=== PATIENT | female | born 1960 | race Caucasian/White ===

== ENCOUNTER 2018-01-12 15:32 | Observation (INO) | payer MEDICARE, MEDICAID ==
[~2018-01-12] VITALS: Ht 175.3 cm; Wt 72.6 kg
[2018-01-12] MEDS ORDERED: fentaNYL INJECTION 100 MCG/2 ML AMP ONE ×2 (15:50→19:46)
--- NOTE | 2018-01-12 15:57 | ED Trauma-Multisystem ---
General Stated Complaint: HEAD INJ,CP Source of Information: Patient, EMS Exam Limitations: No Limitations History of Present Illness Date Seen by Provider: Jan 12, 2018 Time Seen by Provider: 15:41 Initial Comments Here with report of head injury with laceration to the posterior scalp, neck pain, upper back pain and chest pain after being struck by a tree limbs while sitting in a rocking chair. Apparently the lab was approximately 8-10 inches around. The limb Dr. onto the ground and landed on her chest. She is from [facility] but was transported here due to trauma diversion. Denies loss of consciousness. Does complain of nausea but no vomiting. She did receive pain and nausea meds in route by EMS. Reports that she does take insulin, Xanax , Flexeril and a blood pressure medicine. Occurred: Just Prior to Arrival (approximately 1-1/2 hours ago) Severity: Moderate Pain/Injury Location: Back, Chest, Head, Neck Method of Injury: Direct Blow Modifying Factors: No Movement, Rest Associated Symptoms (Fall): No Abdominal Pain, Chest Pain, No Confusion, Muscle Spasms, Nausea/Vomiting, Neck Pain, No Shortness of Air Allergies and Home Medications Allergies Coded Allergies: codeine (Verified Allergy, Unknown, 01/12/18) Patient Home Medication List Home Medication List Reviewed: Yes Constitutional: see HPI, No chills, No fever Eyes: No Symptoms Reported Ears: No Symptoms Reported Nose: No Symptoms Reported Mouth: No Symptoms Reported Throat: No Symptoms to Report Respiratory: No cough, No short of breath Cardiovascular: Chest Pain (anterior upper chest wall where limb struck her), Denies Palpitations Gastrointestinal: No abdominal pain, nausea, No vomiting : No Musculoskeletal: back pain, muscle pain, No muscle weakness, neck pain Skin: lumps (posterior scalp), other (scalp laceration otherwise no abrasions) Psychiatric/Neurological: Denies Cognitive Dysfunction, Headache, Denies Weakness All Other Systems Reviewed Negative Unless Noted: Yes Past Gpuidgf-Ejldxk-Jphqci Hx Patient Social History Recreational Drug Use: No Smoking Status: Current Everyday Smoker Surgeries History of Surgeries: Yes Surgeries: Gallbladder, Hysterectomy, Orthopedic Respiratory History of Respiratory Disorde: No Cardiovascular History of Cardiac Disorders: Yes Cardiac Disorders: Hypertension Neurological History of Neurological Disord: No Gastrointestinal History of Gastrointestinal Di: No Musculoskeletal History of Musculoskeletal Dis: Yes Musculoskeletal Disorders: Chronic Back Pain Endocrine History of Endocrine Disorders: Yes Endocrine Disorders: Diabetes, Insulin dep Cancer History of Cancer: No Psychosocial History of Psychiatric Problem: Yes Behavioral Health Disorders: Anxiety Reviewed Nursing Assessment Reviewed/Agree w Nursing PMH: Yes Family Medical History Significant Family History: No Pertinent Family Hx Physical Exam Vital Signs Vital Signs - First Documented 01/12/18 15:35 Temp 97.1 Pulse 96 Resp 18 B/P (MAP) 127/100 (109) Pulse Ox 97 O2 Delivery Nasal Cannula O2 Flow Rate 2.00 General Appearance: No Apparent Distress, WD/WN Head: Lacerations (posterior scalp approximately 3 cm near the midline) Eyes: Bilateral Eye Normal Inspection, Bilateral Eye PERRL, Bilateral Eye EOMI Ears, Nose, Throat: Hearing Grossly Normal, No Evidence of ENT Injury, Other ( upper and lower dentures) Neck: Tender Lateral, Tender Midline, Other (c-collar remains in place) Cardiovascular: Regular Rate, Rhythm, No Murmur Respiratory: Lungs Clear, Normal Breath Sounds Gastrointestinal: Non Tender, Soft Back: Muscle Spasm (bilateral lateral spinous muscles throughout the back), Vertebral Tenderness (thoracic spine midline upper) Extremity: Normal Range of Motion, Non Tender Neurologic/Psychiatric: Alert, Oriented x3, No Motor/Sensory Deficits Skin: Normal Color, Warm/Dry, Other (scalp laceration as noted above. No other abrasions or wounds noted to the chest or back) Bill Coma Score Best Eye Response ([place]): (4) Open Spontaneously Best Verbal Response (Bill): (5) Oriented Best Motor Response ([place]): (6) Obeys Commands Laceration Repair : Wound Location: Scalp Other Wound Location Posterior left-sided Wound Length (cm): 3 Wound's Depth, Shape: irregular, contused tissue Wound Explored: contaminated Irrigated w/ Saline (ccs): 250 Betadine Prep?: No (chlorhexidine) Anesthesia: Lidocaine w/ Epi Volume Anesthetic (ccs): 5 Wound Debrided: minimal Staple Repair: Stapler 35W Number of Sutures: 8 Layer Closure?: 1 Number Deep Layer Sutures: 0 Progress Clinical decision saline and soap. Anesthetized. Closed with duncan. Currently with antibiotic ointment. Tolerated procedure well with no complication. Progress/Results/Core Measures Results/Orders Lab Results Laboratory Tests Test 01/12/18 15:50 Range/Units White Blood Count 11.2 H 4.3-11.0 10^3/uL Red Blood Count 4.24 L 4.35-5.85 10^6/uL Hemoglobin 14.1 11.5-16.0 G/DL Hematocrit 40 35-52 % Mean Corpuscular Volume 95 80-99 FL Mean Corpuscular Hemoglobin 33 25-34 PG Mean Corpuscular Hemoglobin Concent 35 32-36 G/DL Red Cell Distribution Width 12.5 10.0-14.5 % Platelet Count 183 130-400 10^3/uL Mean Platelet Volume 9.7 7.4-10.4 FL Sodium Level 139 135-145 MMOL/L Potassium Level 4.0 3.6-5.0 MMOL/L Chloride Level 106 98-107 MMOL/L Carbon Dioxide Level 24 21-32 MMOL/L Anion Gap 9 5-14 MMOL/L Blood Urea Nitrogen 13 7-18 MG/DL Creatinine 0.67 0.60-1.30 MG/DL Estimat Glomerular Filtration Rate > 60 BUN/Creatinine Ratio 19 Glucose Level 118 H 70-105 MG/DL Calcium Level 9.3 8.5-10.1 MG/DL Total Bilirubin 0.3 0.1-1.0 MG/DL Direct Bilirubin 0.1 0.0-0.3 MG/DL Indirect Bilirubin 0.2 MG/DL Aspartate Amino Transf (AST/SGOT) 24 5-34 U/L Alanine Aminotransferase (ALT/SGPT) 18 0-55 U/L Alkaline Phosphatase 79 40-136 U/L Total Protein 6.8 6.4-8.2 GM/DL Albumin 4.3 3.2-4.5 GM/DL Serum Test, Qualitative NEGATIVE NEGATIVE Serum Alcohol < 10 <10 MG/DL My Orders Orders - CORBIN JOSEPH MD Cbc No Diff (01/12/18 15:48) Basic Metabolic Panel (01/12/18 15:48) Liver Panel (01/12/18 15:48) Alcohol (01/12/18 15:48) Hcg,Qualitative Serum (01/12/18 15:48) Chest 1 View, Ap/Pa Only (01/12/18 15:48) End Tidal Co2 (01/12/18 15:48) Monitor-Rhythm Ecg Trace Only (01/12/18 15:48) Ct Head/Cervical Spine Wo (01/12/18 15:48) Ct Chest/Abdomen/Pelvis W (01/12/18 15:48) Fentanyl Injection (Sublimaze Injection (01/12/18 15:50) Iohexol Injection (Omnipaque 350 Mg/Ml 1 (01/12/18 16:15) Ns (Ivpb) (Sodium Chloride 0.9% Ivpb Bag (01/12/18 16:15) D5 Ns 1000 Ml Iv Solution (Dextrose 5%/0 (01/12/18 16:35) Hydrocodone/Apap 10/325 Tablet (Lortab 1 (01/12/18 17:02) Dipht,Pertuss(Acell),Tet Adult (Boostrix (01/12/18 17:14) Lidocaine/Epi 1% 1:100,000 (Xylocaine /E (01/12/18 17:14) Lidocaine/Epi 2% 1:100,000 (Xylocaine/Ep (01/12/18 17:42) Medications Given in ED Current Medications Medications Dose Ordered Sig/Randall Route Start Time Stop Time Status Last Admin Dose Admin Dextrose/Sodium Chloride 1,000 ml @ ud STK-MED ONCE IV 01/12/18 16:35 01/12/18 16:39 DC 01/12/18 16:40 150 MLS/HR Fentanyl Citrate 100 mcg STK-MED ONCE .ROUTE 01/12/18 15:50 01/12/18 15:53 DC 01/12/18 16:00 100 MCG Iohexol 100 ml ONCE ONCE IV 01/12/18 16:15 01/12/18 16:16 DC 01/12/18 16:15 100 ML Sodium Chloride 100 ml ONCE ONCE IV 01/12/18 16:15 01/12/18 16:16 DC 01/12/18 16:16 100 ML Vital Signs/I&O Vital Sign - Last 12Hours 01/12/18 15:35 Temp 97.1 Pulse 96 Resp 18 B/P (MAP) 127/100 (109) Pulse Ox 97 O2 Delivery Nasal Cannula O2 Flow Rate 2.00 Progress Note : Progress Note Seen and evaluated. IV by EMS. Labs, CT head and neck ordered without contrast. CT chest abdomen and pelvis with contrast, scan due to being struck by a large limb. Fentanyl 75 g IV for persistent pain. We will check, labs. Monitor patient. Patient placed on O2 at 2 L via nasal cannula. 1645: CT of the head and neck do not show any fractures or intracranial injury. C-collar removed. Patient does have some lateral pain and pain in the upper chest. 1646 : I did discuss the CT findings with the radiologist regarding the chest and she has central manubrial fracture midline that is nondisplaced but otherwise no other other fractures or bleeding within the chest. 1710: Findings have been discussed with the patient. She is asking for some improvement or drink. We will allow for this. Patient is having fairly significant pain with sitting up. Hydrocodone 10/325 one tab by mouth given. She normally takes hydrocodone 7.5/325 3-4 day for her chronic pain. Monitor patient. 1715: I did discuss the case with Dr. Kilpatrick for admission due to the fact that the patient is having significant pain control issues. There is also a concerns about shallow breathing due to pain and the patient has eczema. She has been a smoker for 50 years and she did not know that she had emphysema or emphysematous changes but she understands that this is likely an related to her smoking history. I discussed the case with Dr. David at 1732 and she accepts patient in consult. We will continue his insulin sliding scale. Wound closed with duncan. Admit, observation status. Patient family agree with plan. Diagnostic Imaging Diagonstic Imaging: CT Plain Films/CT/US/NM/MRI: c-spine, head Comments NAME: ROSA HORNER [facility] REC#: [id number] PT STATUS: REG ER : 1960 PHYSICIAN: CORBIN JOSEPH MD ADMIT DATE: 01/12/18/ER Signed Date of Exam: 01/12/18 CT HEAD/CERVICAL SPINE WO INDICATION: Tree limb fell on patient, with head and neck pain. CT head findings: Noncontrast brain CT is performed. There are no extra-axial fluid collections. No intracranial hemorrhage. No intracranial mass or mass effect. No midline shift. The ventricles are normal in size and position. There are no focal parenchymal abnormalities in the brain. Calvarial windows are unremarkable. CT cervical spine findings: Axial slices are obtained with sagittal and coronal reconstructions without contrast. There is no evidence of cervical spine fracture. There is no subluxation or malalignment. There is disc space narrowing at C3-C4, C4-C5, and C5-C6 as well as C6-C7, with osteophyte formation. There is some right-sided neuroforaminal narrowing at C3-C4 due to osteophyte formation. There is left-sided neuroforaminal narrowing at C4-C5 due to osteophyte formation. There is bilateral neuroforaminal narrowing at C5-C6, right greater than left. There is bilateral neuroforaminal narrowing at C6-C7. IMPRESSION: CT head demonstrates no acute intracranial abnormality or calvarial fracture. CT cervical spine demonstrates multilevel degenerative changes as above with no acute fracture or subluxation. Dictated by: Dictated on workstation # [id number] Dict: 01/12/18 1624 Trans: 01/12/181700 Interpreted by: HELLEN MCKENZIE MD Electronically signed by: HELLEN MCKENZIE MD 01/12/181700 Reviewed: Reviewed by Me Diagonstic Imaging: Xray Plain Films/CT/US/NM/MRI: chest Comments NAME: SIRICATINAY [facility] REC#: [id number] PT STATUS: REG ER : 1960 PHYSICIAN: CORBIN JOSEPH MD ADMIT DATE: 01/12/18/ER Signed Date of Exam: 01/12/18 CHEST 1 VIEW, AP/PA ONLY INDICATION: Chest pain, tree limb landed on patient. TECHNIQUE: A PA chest was obtained at 4:30 PM. FINDINGS: The heart is mildly enlarged. There is central vascular prominence with chronic appearing increased interstitial markings. There is no pneumothorax or pleural fluid. There is no overt bony abnormality in the chest. IMPRESSION: Central vascular prominence with chronic appearing increased interstitial markings. No overt consolidation, pneumothorax, or pleural fluid. Dictated by: Dictated on workstation # [id number] Dict: 01/12/18 1639 Trans: 01/12/181700 Interpreted by: HELLEN MCKENZIE MD Electronically signed by: HELLEN MCKENZIE MD 01/12/181700 Diagonstic Imaging: CT Plain Films/CT/US/NM/MRI: chest, abdomen, pelvis Comments VIA [facility]. [place], [place] NAME: ROSA HORNER [facility] REC#: [id number] PT STATUS: REG ER : 1960 PHYSICIAN: CORBIN JOSEPH MD ADMIT DATE: 01/12/18/ER Draft Date of Exam:01/12/18 CT CHEST/ABDOMEN/PELVIS W PROCEDURE: CT chest, abdomen, and pelvis with contrast. TECHNIQUE: Multiple contiguous axial images were obtained through the chest, abdomen, and pelvis after the administration of intravenous contrast. INDICATION: Trauma to chest. FINDINGS: There are no prior studies available for comparison. On the parasagittal images, there is a small essentially nondisplaced fracture along the ventral cortex of the body of the manubrium (image 27 of 58). There may be a small retromanubrial hematoma as well. The sternum itself is intact. There is no other acute bony abnormality appreciated. The thoracic and lumbar vertebrae are intact and there is no sign of an injury to the bony pelvis. The images through the thorax do show that there are emphysematous changes involving both lungs. There is also atelectasis/infiltrate in each lower lobe. There is no sign of pneumothorax. The heart size is within normal limits. Coronary artery calcifications are noted. The aorta is not abnormally dilated. There is no sign of dissection. There is no defect within the pulmonary arteries to indicate a pulmonary embolus either. There is no mediastinal or hilar adenopathy. The thyroid gland, where visualized, is unremarkable. The sections through the abdomen and pelvis fail to show any sign of an acute abnormality. The liver does not appear to be enlarged. The gallbladder is surgically absent. The spleen, pancreas, adrenals, kidneys, aorta, and inferior vena cava are unremarkable for an acute abnormality. There is no pelvic mass or free fluid collection evident. There are numerous diverticula involving the sigmoid and descending colon, but there is no sign of acute diverticulitis. The appendix is not well visualized, but there are no indirect signs of acute appendicitis. The uterus is surgically absent. The urinary bladder is grossly unremarkable. IMPRESSION: 1. There is an essentially nondisplaced fracture of the ventral cortex of the manubrium. No other acute bony abnormality is noted. 2. There are emphysematous changes involving both lungs and there is atelectasis/infiltrate in each lung base. 3. There is no acute abnormality of the abdomen or pelvis. 4. The gallbladder and the uterus are surgically absent. 5. These results were discussed with Dr. Corbin Joseph in the ER. Dictated on workstation # [id number] Dict: 01/12/18 1641 Trans: 01/12/18 1708 [id number] Interpreted by: HALIMA STORM MD Electronically signed by: Departure Communication (Admissions) Time/Spoke to Admitting Phy: 17:15 Time/Spoke to Consulting Phy: 17:32 Impression Impression: Primary Impression: Scalp laceration Qualified Codes: S01.01XA - Laceration without foreign body of scalp, initial encounter Additional Impressions: Head injury, acute, without loss of consciousness Qualified Codes: S09.90XA - Unspecified injury of head, initial encounter Fracture of manubrium Qualified Codes: S22.21XA - Fracture of manubrium, initial encounter for closed fracture Intractable pain Disposition: ADMITTED INPATIENT Condition: Stable Admissions Decision to Admit Reason: Admit from ER (Trauma) Decision to Admit/Date: Jan 12, 2018 Time/Decision to Admit Time: 17:15 CORBIN JOSEPH MD Jan 12, 2018 15:57
[2018-01-12] MEDS ORDERED: IOHEXOL 350 MG/ML 100 ML (OMNIPAQUE 350) VIAL IV ONE (16:15)
[2018-01-12] MEDS ORDERED: NS 100 ML (IVPB) BAG IV ONE (16:15)
[2018-01-12 16:22] LABS: HEMOGLOBIN 14.1 G/DL (11.5-16.0); MEAN PLATELET VOLUME 9.7 FL (7.4-10.4); RED BLOOD COUNT 4.24 10^6/uL (4.35-5.85); RED CELL DISTRIBUTION WIDTH 12.5 % (10.0-14.5); WHITE BLOOD COUNT 11.2 10^3/uL (4.3-11.0)
--- NOTE | 2018-01-12 16:33 | Diagnostic Imaging Report ---
INDICATION: Tree limb fell on patient, with head and neck pain. CT head findings: Noncontrast brain CT is performed. There are no extra-axial fluid collections. No intracranial hemorrhage. No intracranial mass or mass effect. No midline shift. The ventricles are normal in size and position. There are no focal parenchymal abnormalities in the brain. Calvarial windows are unremarkable. CT cervical spine findings: Axial slices are obtained with sagittal and coronal reconstructions without contrast. There is no evidence of cervical spine fracture. There is no subluxation or malalignment. There is disc space narrowing at C3-C4, C4-C5, and C5-C6 as well as C6-C7, with osteophyte formation. There is some right-sided neuroforaminal narrowing at C3-C4 due to osteophyte formation. There is left-sided neuroforaminal narrowing at C4-C5 due to osteophyte formation. There is bilateral neuroforaminal narrowing at C5-C6, right greater than left. There is bilateral neuroforaminal narrowing at C6-C7. IMPRESSION: CT head demonstrates no acute intracranial abnormality or calvarial fracture. CT cervical spine demonstrates multilevel degenerative changes as above with no acute fracture or subluxation. Dictated by: Dictated on workstation # [id number]
[2018-01-12] MEDS ORDERED: D5 NS 1000 ML IV SOLUTION 1,000 ML IV ONE (16:35)
--- NOTE | 2018-01-12 16:43 | Diagnostic Imaging Report ---
INDICATION: Chest pain, tree limb landed on patient. TECHNIQUE: A PA chest was obtained at 4:30 PM. FINDINGS: The heart is mildly enlarged. There is central vascular prominence with chronic appearing increased interstitial markings. There is no pneumothorax or pleural fluid. There is no overt bony abnormality in the chest. IMPRESSION: Central vascular prominence with chronic appearing increased interstitial markings. No overt consolidation, pneumothorax, or pleural fluid. Dictated by: Dictated on workstation # [id number]
[2018-01-12 16:51] LABS: ALANINE AMINOTRANSFERASE 18 U/L (0-55); ALBUMIN 4.3 GM/DL (3.2-4.5); ALKALINE PHOSPHATASE 79 U/L (40-136); BILIRUBIN,DIRECT 0.1 MG/DL (0.0-0.3); BILIRUBIN,INDIRECT 0.2 MG/DL; BILIRUBIN,TOTAL 0.3 MG/DL (0.1-1.0); BUN/CREATININE RATIO 19; CALCIUM 9.3 MG/DL (8.5-10.1); CARBON DIOXIDE 24 MMOL/L (21-32); CHLORIDE 106 MMOL/L (98-107); CREATININE SERUM 0.67 MG/DL (0.60-1.30); GFR ESTIMATED > 60; GLUCOSE 118 MG/DL (70-105); SODIUM 139 MMOL/L (135-145); TOTAL PROTEIN 6.8 GM/DL (6.4-8.2)
[2018-01-12] MEDS ORDERED: HYDROcodone/APAP 10 MG/325 MG (LORTAB) TAB PO STA (17:02)
--- NOTE | 2018-01-12 17:08 | Diagnostic Imaging Report ---
PROCEDURE: CT chest, abdomen, and pelvis with contrast. TECHNIQUE: Multiple contiguous axial images were obtained through the chest, abdomen, and pelvis after the administration of intravenous contrast. INDICATION: Trauma to chest. FINDINGS: There are no prior studies available for comparison. On the parasagittal images, there is a small essentially nondisplaced fracture along the ventral cortex of the body of the manubrium (image 27 of 58). There may be a small retromanubrial hematoma as well. The sternum itself is intact. There is no other acute bony abnormality appreciated. The thoracic and lumbar vertebrae are intact and there is no sign of an injury to the bony pelvis. The images through the thorax do show that there are emphysematous changes involving both lungs. There is also atelectasis/infiltrate in each lower lobe. There is no sign of pneumothorax. The heart size is within normal limits. Coronary artery calcifications are noted. The aorta is not abnormally dilated. There is no sign of dissection. There is no defect within the pulmonary arteries to indicate a pulmonary embolus either. There is no mediastinal or hilar adenopathy. The thyroid gland, where visualized, is unremarkable. The sections through the abdomen and pelvis fail to show any sign of an acute abnormality. The liver does not appear to be enlarged. The gallbladder is surgically absent. The spleen, pancreas, adrenals, kidneys, aorta, and inferior vena cava are unremarkable for an acute abnormality. There is no pelvic mass or free fluid collection evident. There are numerous diverticula involving the sigmoid and descending colon, but there is no sign of acute diverticulitis. The appendix is not well visualized, but there are no indirect signs of acute appendicitis. The uterus is surgically absent. The urinary bladder is grossly unremarkable. IMPRESSION: 1. There is an essentially nondisplaced fracture of the ventral cortex of the manubrium. No other acute bony abnormality is noted. 2. There are emphysematous changes involving both lungs and there is atelectasis/infiltrate in each lung base. 3. There is no acute abnormality of the abdomen or pelvis. 4. The gallbladder and the uterus are surgically absent. 5. These results were discussed with Dr. Corbin Patel in the ER. Dictated by: Dictated on workstation # [id number]
[2018-01-12] MEDS ORDERED: TETANUS,DIPTH,PERTUSS P/F (BOOSTRIX) 0.5 ML VIAL IM STA (17:14)
[2018-01-12] MEDS ORDERED: LIDOCAINE/EPI 1%-1:100,000 (XYLOCAINE) 20ML INJ STA (17:14)
[2018-01-12] MEDS ORDERED: LIDOCAINE/EPI 2% 1:100,00 (XYLOCAINE) 20 ML VIAL ONE (17:42)
--- OUTSIDE RECORDS SUMMARY | 2018-01-12 18:06 | XMS REPORT ---
Author Author Anastacia Lee Organization [facility] Address [address] [place], [place] [id number] Care Team Providers Care Medical Record Specialist Name Role Phone Anastacia Lee PCP Unavailable Sri Guevara PreferredProvider Allergies and Adverse Reactions Name Reaction Notes Tape op site covering Molds codeine sulfate lisinopril cough ranitidine HCl IBS symptoms Plan of Treatment Planned Activity Comments Planned Date Planned Time Plan/Goal Hemoglobin A1C 07/09/2015 12:00 AM Hemoglobin A1C 04/06/2016 12:00 AM Complete blood count (CBC) with differential count 12/12/2016 12:00 AM Comprehensive metabolic panel 12/12/2016 12:00 AM Lipid Blood Profile 12/12/2016 12:00 AM Hemoglobin A1c measurement 12/12/2016 12:00 AM Basic metabolic panel 02/03/2017 12:00 AM Complete blood count (CBC) with differential count 02/03/2017 12:00 AM Hemoglobin A1c measurement 02/03/2017 12:00 AM MICROALBUMIN UR RANDOM 02/03/2017 12:00 AM Medications Active Name Start Date Estimated Completion Date SIG Comments Lortab 7.5-500 mg oral tablet take 1 tablet by oral route every 6 hours as needed for pain Lantus Solostar 100 unit/mL (3 mL) subcutaneous insulin pen inject by subcutaneous route as per insulin protocol BD Ultra-Fine Izzy Pen [place] 32 gauge x 5/32" miscellaneous needle 2013 USE DIRECTED cyclobenzaprine oral gemfibrozil 600 mg oral tablet 08/22/2014 take 1 tablet (600 mg) by oral route 2 times per day 30 minutes before morning and evening meal Lantus Solostar 100 unit/mL (3 mL) subcutaneous insulin pen 08/22/2014 injection 15 units by subcutaneous route BID Novolog 100 unit/mL subcutaneous solution 08/22/2014 injection by subcutaneous route with sliding scale TID with meals gemfibrozil 600 mg oral tablet 08/22/2014 TAKE 1 TABLET (600 MG) BY ORAL ROUTE 2 TIMES PER DAY 30 MINUTES BEFORE MORNING AND EVENING MEAL BD Ultra-Fine Izzy Pen [place] 32 gauge x 5/32" miscellaneous needle 2013 USE DIRECTED insulin syringe-needle U-100 0.3 mL 30 miscellaneous syringe 09/20/2014 USE DIRECTED insulin syringe-needle U-100 0.3 mL 30 miscellaneous syringe 10/15/2014 USE DIRECTED BD Ultra-Fine Izzy Pen [place] 32 gauge x 5/32" miscellaneous needle 10/30/2014 USE DIRECTED insulin syringe-needle U-100 0.3 mL 30 miscellaneous syringe 11/13/2014 USE DIRECTED insulin syringe-needle U-100 0.3 mL 30 miscellaneous syringe 01/03/2015 USE DIRECTED Lantus Solostar 100 unit/mL (3 mL) subcutaneous insulin pen 01/19/2015 INJECT 15 UNITS BID, MAY INCREASE BY 2 UNITS DAILY DIRECTED Zanaflex 4 mg oral capsule take 1 capsule by oral route 3 times a day as needed doxazosin 4 mg oral tablet 03/01/2015 TAKE 1 TABLET (4 MG) BY ORAL ROUTE ONCE DAILY FOR 30 DAYS Centrum Silver 0.4-300-250 mg-mcg-mcg oral tablet take 1 tablet by oral route daily Lantus Solostar 100 unit/mL (3 mL) subcutaneous insulin pen 03/22/2015 INJECT 10 UNITS DAILY, MAY INCREASE BY 2 UNITS DAILY DIRECTED doxazosin 4 mg oral tablet 03/29/2015 TAKE 1 TABLET (4 MG) BY ORAL ROUTE ONCE DAILY FOR 30 DAYS insulin syringe-needle U-100 0.3 mL 30 miscellaneous syringe 04/25/2015 USE DIRECTED insulin syringe-needle U-100 0.3 mL 30 miscellaneous syringe 04/26/2015 USE DIRECTED doxazosin 4 mg oral tablet 05/14/2015 TAKE 1 TABLET (4 MG) BY ORAL ROUTE ONCE DAILY FOR 30 DAYS Lantus Solostar 100 unit/mL (3 mL) subcutaneous insulin pen 05/28/2015 INJECT 10 UNITS DAILY, MAY INCREASE BY 2 UNITS DAILY DIRECTED Lantus Solostar 100 unit/mL (3 mL) subcutaneous insulin pen 06/25/2015 INJECT 10 UNITS DAILY, MAY INCREASE BY 2 UNITS DAILY DIRECTED BD Ultra-Fine Izzy Pen [place] 32 gauge x 5/32" miscellaneous needle 2014 USE DIRECTED Lantus Solostar 100 unit/mL (3 mL) subcutaneous insulin pen 07/26/2015 INJECT 10 UNITS DAILY, MAY INCREASE BY 2 UNITS DAILY DIRECTED insulin syringe-needle U-100 0.3 mL 30 miscellaneous syringe 07/26/2015 USE DIRECTED insulin syringe-needle U-100 0.3 mL 30 miscellaneous syringe 08/23/2015 USE DIRECTED Novolog 100 unit/mL subcutaneous solution 10/11/2015 USE TWICE DAILY PER SLIDING SCALE(UP TO 8 UNITS PER USE) Novolog 100 unit/mL subcutaneous solution 10/11/2015 USE TWICE DAILY PER SLIDING SCALE(UP TO 8 UNITS PER USE) ibuprofen 400 mg oral tablet 10/30/2015 TAKE 1 TABLET (400 MG) BY ORAL ROUTE EVERY 6 HOURS NEEDED FOR PAIN FOR 30 DAYS BD Ultra-Fine Izzy Pen [place] 32 gauge x 32" miscellaneous needle 2015 USE DIRECTED magnesium 250 mg oral tablet take 2 tablets by oral route daily biotin 5 mg oral capsule take 1 capsule by oral route daily insulin syringe-needle U-100 0.3 mL 30 miscellaneous syringe 02/11/2016 USE DIRECTED Vitamin D3 1,000 unit oral tablet take 1 tablet by oral route every other day vitamin B complex oral capsule take 1 capsule by oral route every other day Novolog 100 unit/mL subcutaneous solution 03/25/2016 USE TWICE DAILY PER SLIDING SCALE(UP TO 8 UNITS PER USE) ibuprofen 400 mg oral tablet 07/22/2016 TAKE 1 TABLET (400 MG) BY ORAL ROUTE EVERY 6 HOURS NEEDED FOR PAIN FOR 30 DAYS insulin syringe-needle U-100 0.3 mL 30 miscellaneous syringe 09/10/2016 USE DIRECTED ProAir HFA 90 mcg/actuation inhalation HFA aerosol inhaler 10/07/2016 inhale 1 - 2 puffs (90 - 180 mcg) by inhalation route every 6 hours as needed pantoprazole 40 mg oral tablet,delayed release (DR/EC) 10/21/2016 TAKE 1 TABLET BY MOUTH EVERY DAY ibuprofen 400 mg oral tablet 10/21/2016 TAKE 1 TABLET (400 MG) BY ORAL ROUTE EVERY 6 HOURS NEEDED FOR PAIN FOR 30 DAYS OneTouch Ultra Test miscellaneous strip 12/11/2016 12/06/2017 Test 5 times daily. DX: E10.65 Omnipod 1 Insulin Management System 12/12/2016 03/21/2017 Daily use VGO 20 miscellaneous device 12/12/2016 04/11/2017 use as directed for 30 days Lantus Solostar 100 unit/mL (3 mL) subcutaneous insulin pen 12/19/2016 INJECT 10 UNITS IN THE EVENING AND 28 UNITS IN THE MORNING BD Ultra-Fine Izzy Pen [place] 32 gauge x 5/32" miscellaneous needle 2016 USE DIRECTED Novolog 100 unit/mL subcutaneous solution 02/05/2017 08/04/2017 inject up to 8 units sub-q TID loratadine 10 mg oral tablet 03/02/2017 take 1 tablet (10 mg) by oral route once daily Name Start Date Expiration Date SIG Comments Skelaxin 800 mg oral tablet 09/09/2013 12/08/2013 take 1 tablet (800 mg) by oral route 3 times per day as needed for 30 days biotin 10 mg oral tablet 09/12/2013 12/11/2013 take 1 tablet by oral route daily for 30 days doxazosin 4 mg oral tablet 02/27/2014 02/22/2015 take 1 tablet (4 mg) by oral route once daily for 30 days ibuprofen 400 mg oral tablet 02/27/2014 08/26/2014 take 1 tablet (400 mg) by oral route every 6 hours as needed for pain for 30 days Novolog 100 unit/mL subcutaneous solution 06/12/2014 07/12/2014 BID sliding scale: >120-180 take 2 units, 180-240 take 4 units, 240-300 take 6 units, 300- 350 take 8 units. If >350 take 8 units and recheck Soma 250 mg oral tablet 12/26/2014 01/02/2015 take 1 tablet by oral route once a day (at bedtime) for 7 days Ketone Urine Test miscellaneous strip 03/07/2015 05/06/2015 use as directed for 30 days Blood Glucose Monitoring miscellaneous kit 03/07/2015 04/06/2015 use as directed for 30 days Macrobid 100 mg oral capsule 09/13/2015 09/18/2015 take 1 capsule (100 mg) by oral route 2 times per day with food for 5 days doxazosin 4 mg oral tablet 01/01/2016 12/26/2016 TAKE 1 TABLET (4 MG) BY ORAL ROUTE ONCE DAILY FOR 30 DAYS for 90 days Acid Control (ranitidine) 150 mg oral tablet 01/03/2016 02/02/2016 take 1 tablet (150 mg) by oral route once daily at bedtime for 30 days amoxicillin 250 mg oral capsule 06/25/2016 07/05/2016 take 1 capsule (250 mg) by oral route every 8 hours for 10 days Lantus Solostar 100 unit/mL (3 mL) subcutaneous insulin pen 07/04/20162016 INJECT 10 UNITS in the evening and 28 units in the morning Augmentin 875-125 mg oral tablet 10/07/2016 10/14/2016 take 1 tablet by oral route every 12 hours for 7 days alprazolam 0.5 mg oral tablet 12/29/2016 01/28/2017 take 1 tablet by oral route 2 times a day as needed for 30 days Discontinued Name Start Date Discontinued Date SIG Comments Soma 350 mg oral tablet 07/15/2013 1 or 2 a day Zantac 150 mg oral tablet 08/10/2013 take 1 tablet (150 mg) by oral route 2 times per day Claritin 10 mg oral tablet 07/15/2013 take 1 tablet (10 mg) by oral route once daily PRN metformin 1,000 mg oral tablet 07/18/2013 08/10/2013 take 1 tablet by oral route 2 times a day Kombiglyze XR 2.5-1,000 mg oral tablet, ER multiphase 24 hr 07/20/20132012 take 1 tablet by oral route once daily with the evening meal gabapentin 300 mg oral capsule 09/09/2013 10/20/2013 take 1 capsule (300 mg ) by oral route 3 times per day for 90 days Glucerna Oral Liquid 09/09/2013 09/09/2013 take 250 milliliters by oral route 2 times a day for 90 days deleted Glucerna oral liquid 09/09/2013 10/20/2013 Take 250 ml by oral route twice a day for 90 days Patient unable to afford product Crestor 20 mg oral tablet 11/10/2013 08/22/2014 take 1 tablet (20 mg) by oral route once daily for 30 days Pt, quit Protonix 40 mg oral tablet,delayed release (DR/EC) 11/10/2013 03/07/2015 take 1 tablet by mouth daily Xanax 0.5 mg oral tablet 11/10/2013 01/31/2014 take 1 tablet by oral route daily meloxicam 15 mg oral tablet 03/16/2014 08/22/2014 take 1 tablet (15 mg) by oral route once daily triamcinolone acetonide 0.1 % topical cream 03/16/2014 08/22/2014 apply a thin layer to the affected area(s) by topical route 3 times per day Zanaflex 4 mg oral tablet 11/21/2014 gemfibrozil 600 mg oral tablet 10/23/2014 01/19/2015 TAKE 1 TABLET (600 MG) BY ORAL ROUTE 2 TIMES PER DAY 30 MINUTES BEFORE MORNING AND EVENING MEAL baclofen 20 mg oral tablet 11/21/2014 11/23/2014 take 1 tablet (20 mg) by oral route 3 times per day for 30 days Diflucan 150 mg oral tablet 02/22/2015 03/07/2015 take 1 tablet (150 mg) by oral route once pantoprazole 40 mg oral tablet,delayed release (DR/EC) 07/09/2015 01/03/2016 TAKE ONE TABLET BY MOUTH DAILY for 90 days alprazolam 0.5 mg oral tablet 10/05/2015 01/01/2016 take 1 tablet by oral route once a day (at bedtime) as needed for 30 days Ativan 0.5 mg oral tablet 01/01/2016 01/23/2016 take 1 tablet by oral route daily for 30 days lisinopril 2.5 mg oral tablet 01/01/2016 03/18/2016 take 1 tablet (2.5 mg) by oral route once daily for 30 days ranitidine HCl 300 mg oral capsule 02/04/2016 03/18/2016 take 1 capsule (300 mg) by oral route once daily after evening meal for 30 days Problem List Description Status Onset Diabetes Mellitus, Type I Active arthritis Active Neuropathy, bilateral feet Active Gastroesophageal Reflux Active 11/10/2013 Hyperlipidemia, unspecified Active 11/10/2013 Hypertension Active 11/10/2013 Dysphagia Active 01/30/2016 Dyspepsia Active 01/30/2016 Nausea Active 01/30/2016 IBS (irritable bowel syndrome) Active 01/30/2016 Constipation Active 01/30/2016 Diarrhea Active 01/30/2016 Encounter for screening colonoscopy Active 01/30/2016 Vital Signs Date Time BP-Sys(mm[Hg] BP-Klarissa(mm[Hg]) HR(bpm) RR(rpm) Temp WT HT HC BMI BSA BMI Percentile O2 Sat(%) 03/02/2017 11:26:00 AM 122 mmHg 76 mmHg 78 bpm 18 rpm 97.5 F 164 lbs 68 in 24.94 kg/m2 1.89 m2 96 % 02/03/2017 11:33:00 AM 150 mmHg 86 mmHg 87 bpm 18 rpm 99.1 F 166 lbs 68 in 25.24 kg/m 1.9007 m 97 % 12/11/2016 3:27:00 PM 122 mmHg 82 mmHg 84 bpm 16 rpm 99 F 165.375 lbs 68 in 25.14 kg/m2 1.90 m2 94 % 10/07/2016 3:21:00 PM 142 mmHg 90 mmHg 89 bpm 16 rpm 96.1 F 165 lbs 68 in 25.0879 kg/m 1.8949 m 96 % 08/06/2016 1:41:00 PM 124 mmHg 80 mmHg 69 bpm 16 rpm 97.4 F 166.125 lbs 68 in 25.26 kg/m2 1.90 m2 96 % 06/25/2016 2:37:00 PM 146 mmHg 82 mmHg 73 bpm 16 rpm 97.6 F 164.125 lbs 68 in 24.9549 kg/m 1.8899 m 96 % 03/18/2016 11:10:00 AM 128 mmHg 76 mmHg 82 bpm 16 rpm 98.7 F 164.375 lbs 68 in 24.99 kg/m2 1.89 m2 95 % 01/30/2016 11:21:00 AM 132 mmHg 77 mmHg 94 bpm 18 rpm 97 F 163.5 lbs 69 in 24.1445 kg/m 1.9001 m 01/01/2016 11:33:00 AM 132 mmHg 78 mmHg 106 bpm 18 rpm 98.1 F 168.5 lbs 69 in 24.88 kg/m2 1.93 m2 94 % 10/05/2015 9:16:00 AM 148 mmHg 66 mmHg 76 bpm 18 rpm 96.2 F 163.5 lbs 69 in 24.1445 kg/m 1.9001 m 96 % 07/09/2015 3:46:00 PM 182 mmHg 82 mmHg 69 bpm 98.4 F 158 lbs 69 in 23.33 kg/m2 1.87 m2 97 % 03/07/2015 4:07:00 PM 120 mmHg 82 mmHg 81 bpm 97.1 F 154.25 lbs 69 in 22.7785 kg/m 1.8456 m 97 % 01/19/2015 11:27:00 AM 120 mmHg 80 mmHg 77 bpm 98.5 F 157.125 lbs 69 in 23.20 kg/m2 1.86 m2 97 % 11/21/2014 10:12:00 AM 110 mmHg 60 mmHg 81 bpm 16 rpm 97.4 F 162 lbs 69 in 23.923 kg/m 1.8914 m 96 % 09/28/2014 3:36:00 PM 140 mmHg 72 mmHg 76 bpm 18 rpm 97.5 F 159.375 lbs 69 in 23.54 kg/m2 1.88 m2 97 % 08/22/2014 10:57:00 AM 134 mmHg 84 mmHg 76 bpm 18 rpm 98 F 165 lbs 69 in 24.366 kg/m 1.9088 m 96 % 05/04/2014 2:04:00 PM 126 mmHg 64 mmHg 65 bpm 18 rpm 97.8 F 164.125 lbs 69 in 24.24 kg/m2 1.90 m2 97 % 03/16/2014 1:26:00 PM 138 mmHg 94 mmHg 82 bpm 16 rpm 98.3 F 166.8 lbs 69 in 24.6318 kg/m 1.9192 m 96 % 01/18/2014 10:40:00 AM 110 mmHg 80 mmHg 83 bpm 18 rpm 97.9 F 168 lbs 69 in 24.81 kg/m2 1.93 m2 96 % 12/30/2013 10:49:00 AM 142 mmHg 74 mmHg 82 bpm 18 rpm 97.1 F 169 lbs 69 in 24.9567 kg/m 1.9318 m 94 % 11/10/2013 11:30:00 AM 138 mmHg 76 mmHg 81 bpm 18 rpm 97.3 F 166.375 lbs 69 in 24.57 kg/m2 1.92 m2 95 % 10/20/2013 11:30:00 AM 142 mmHg 84 mmHg 82 bpm 18 rpm 96.7 F 162 lbs 69 in 23.923 kg/m 1.8914 m 96 % 09/09/2013 11:27:00 AM 118 mmHg 65 mmHg 80 bpm 18 rpm 98.2 F 155 lbs 69 in 22.89 kg/m2 1.85 m2 96 % 08/10/2013 3:09:00 PM 115 mmHg 80 mmHg 71 bpm 18 rpm 97.8 F 156 lbs 69 in 23.0369 kg/m 1.856 m 96 % 08/01/2013 11:38:00 AM 140 mmHg 90 mmHg 80 bpm 96.9 F 155 lbs 69 in 22.89 kg/m2 1.85 m2 07/20/2013 11:20:00 AM 128 mmHg 66 mmHg 108 bpm 18 rpm 97.4 F 155.25 lbs 96 % 07/15/2013 10:40:00 AM 140 mmHg 82 mmHg 86 bpm 18 rpm 97.6 F 155.5 lbs 96 % 07/09/2010 9:29:00 AM 140 mmHg 90 mmHg 78 bpm 16 rpm 97.6 F 179 lbs Social History Name Description Comments Housing Lives in a house in [place], [place] lives alone 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 Tobacco Use Alcohol Current - status unknown States she stopped drinking one year ago d/ t diabetes Marijuana 1-2 times per week Did not serve in [employer] Tobacco Current every day smoker History of Procedures Date Ordered Description Order Status 01/01/2016 12:00 AM GLYCOSYLATED HEMOGLOBIN TEST Reviewed 01/01/2016 12:00 AM General Surgery Consult Reviewed 01/01/2016 12:00 AM Neurology Consult Reviewed 01/30/2016 12:00 AM UPPER GI ENDOSCOPY PERFORMED Reviewed 01/30/2016 12:00 AM Screening, Colonoscopy,Colorectal Reviewed 06/25/2016 12:00 AM METABOLIC PANEL TOTAL CA Returned 06/25/2016 12:00 AM COMPLETE CBC W/AUTO DIFF WBC Returned 06/25/2016 12:00 AM GLYCOSYLATED HEMOGLOBIN TEST Returned 06/25/2016 12:00 AM ALBUMIN URINE MICROALBUMIN QUANTIATIVE Returned 12/12/2016 12:00 AM COMPLETE CBC W/AUTO DIFF WBC Returned 12/12/2016 12:00 AM COMPREHEN METABOLIC PANEL Returned 12/12/2016 12:00 AM GLYCOSYLATED HEMOGLOBIN TEST Returned 12/12/2016 12:00 AM LIPID PANEL Returned 12/12/2016 12:00 AM MICROALBUMIN QUANTITATIVE Returned 08/10/2013 12:00 AM COMPREHEN METABOLIC PANEL Reviewed 09/09/2013 12:00 AM GLYCOSYLATED HEMOGLOBIN TEST Reviewed 09/09/2013 12:00 AM ASSAY THYROID STIM HORMONE Reviewed 01/06/2014 12:00 AM COMPLETE CBC W/AUTO DIFF WBC Reviewed 01/06/2014 12:00 AM COMPREHEN METABOLIC PANEL Reviewed 01/06/2014 12:00 AM LIPID PANEL Reviewed 01/06/2014 12:00 AM GLYCOSYLATED HEMOGLOBIN TEST Reviewed 05/04/2014 12:00 AM COMPREHEN METABOLIC PANEL Reviewed 05/04/2014 12:00 AM GLYCOSYLATED HEMOGLOBIN TEST Reviewed 11/21/2014 12:00 AM METABOLIC PANEL TOTAL CA Reviewed 11/21/2014 12:00 AM COMPLETE CBC W/AUTO DIFF WBC Reviewed 11/21/2014 12:00 AM GLYCOSYLATED HEMOGLOBIN TEST Reviewed 11/21/2014 12:00 AM ASSAY THYROID STIM HORMONE Reviewed 11/21/2014 12:00 AM MICROALBUMIN QUANTITATIVE Reviewed 03/07/2015 12:00 AM COMPLETE CBC W/AUTO DIFF WBC Reviewed 03/07/2015 12:00 AM COMPREHEN METABOLIC PANEL Reviewed 03/07/2015 12:00 AM LIPID PANEL Reviewed 03/07/2015 12:00 AM GLYCOSYLATED HEMOGLOBIN TEST Reviewed 07/09/2015 12:00 AM GLYCOSYLATED HEMOGLOBIN TEST Reviewed Results Summary Data and Description Results 08/10/2013 4:15 PM GLUCOSE 306.0 mg/dLSODIUM 138.0 mmol/LPOTASSIUM 4.40 mmol/ LCHLORIDE 101.0 mmol/LCO2 26.0 mmol/LBUN 13.0 mg/dLCREATININE 0.80 mg/dLSGOT/ AST 17.0 IU/LSGPT/ALT 27.0 IU/LALK PHOS 115.0 IU/LTOTAL PROTEIN 7.10 g/ dLALBUMIN 4.70 g/dLTOTAL BILI 0.40 mg/dLCALCIUM 10.40 mg/dLAGE 53 GFR NonAA 75 GFR AA 91 eGFR >60 mL/min/1.73 m2eGFR AA* >60 10/06/2013 1:38 PM TSH 1.740 uIU/mLHGB A1C 11.50 %Est Avg Glucose 283.4 mg/dL 01/10/2014 8:08 AM WBC 5.9 RBC 4.61 HGB 14.90 g/dLHCT 41.70 %MCV 91.0 fLMCH 32.30 pgMCHC 35.70 g/dLRDW SD 41 RDW CV 12.60 %MPV 10.40 fLPLT 175 NRBC# 0.00 NRBC% 0.0 %NEUT 52.60 %%LYMP 38.30 %%MONO 7.20 %%EOS 1.20 %%BASO 0.70 %#NEUT 3.09 #LYMP 2.25 #MONO 0.42 #EOS 0.07 #BASO 0.04 MANUAL DIFF NOT IND GLUCOSE 138.0 mg/dLSODIUM 141.0 mmol/LPOTASSIUM 4.40 mmol/LCHLORIDE 108.0 mmol/LCO2 21.0 mmol/LBUN 13.0 mg/dLCREATININE 0.60 mg/dLSGOT/AST 27.0 IU/LSGPT/ALT 40.0 IU /LALK PHOS 82.0 IU/LTOTAL PROTEIN 6.60 g/dLALBUMIN 4.30 g/dLTOTAL BILI 0.50 mg/ dLCALCIUM 9.20 mg/dLAGE 53 GFR NonAA 104 GFR AA 126 eGFR >60 mL/min/1.73 m2eGFR AA* >60 TRIGLYCERIDES 64.0 mg/dLCHOLESTEROL 102.0 mg/dLHDL 48.0 mg/dLTOT CHOL/ HDL 2.1 LDL (CALC) 41.0 mg/dLHGB A1C 6.50 %Est Avg Glucose 139.9 mg/dLCREAT UR 101.90 mg/dLMICROALBUMIN UR 13.0 ug/mLALB:CREAT RATIO 13 05/04/2014 3:02 PM HGB A1C 7.40 %Est Avg Glucose 165.7 mg/dLGLUCOSE 158.0 mg/ dLSODIUM 141.0 mmol/LPOTASSIUM 4.30 mmol/LCHLORIDE 107.0 mmol/LCO2 23.0 mmol/ LBUN 12.0 mg/dLCREATININE 0.60 mg/dLSGOT/AST 16.0 IU/LSGPT/ALT 20.0 IU/LALK PHOS 83.0 IU/LTOTAL PROTEIN 6.90 g/dLALBUMIN 4.30 g/dLTOTAL BILI 0.40 mg/ dLCALCIUM 9.80 mg/dLAGE 53 GFR NonAA 104 GFR AA 126 eGFR 60 eGFR AA* 60 12/21/2014 1:30 PM MICROALBUMIN UR 18.0 ug/mLGLUCOSE 262.0 mg/dLSODIUM 139.0 mmol/LPOTASSIUM 4.10 mmol/LCHLORIDE 104.0 mmol/LCO2 24.0 mmol/LBUN 12.0 mg/ dLCREATININE 0.70 mg/dLCALCIUM 9.90 mg/dLAGE 54 GFR NonAA 87 GFR AA 105 eGFR > 60 mL/min/1.73 m2eGFR AA* >60 TSH 0.790 uIU/mLWBC 6.5 RBC 4.30 HGB 14.0 g/dLHCT 40.10 %MCV 93.0 fLMCH 32.60 pgMCHC 34.90 g/dLRDW SD 43 RDW CV 12.50 %MPV 10.10 fLPLT 184 NRBC# 0.00 NRBC% 0.0 %NEUT 50.40 %%LYMP 42.60 %%MONO 5.30 %%EOS 1.10 % %BASO 0.60 %#NEUT 3.26 #LYMP 2.75 #MONO 0.34 #EOS 0.07 #BASO 0.04 MANUAL DIFF NOT IND HGB A1C 8.60 %Est Avg Glucose 200.1 mg/dL 03/27/2015 12:05 PM WBC 7.2 RBC 4.50 HGB 14.50 g/dLHCT 41.20 %MCV 92.0 fLMCH 32.20 pgMCHC 35.20 g/dLRDW SD 42 RDW CV 12.60 %MPV 9.90 fLPLT 167 NRBC# 0.00 NRBC% 0.0 %NEUT 66.90 %%LYMP 27.70 %%MONO 4.60 %%EOS 0.40 %%BASO 0.40 %#NEUT 4.82 #LYMP 2.00 #MONO 0.33 #EOS 0.03 #BASO 0.03 MANUAL DIFF NOT IND HGB A1C 6.70 %Est Avg Glucose 145.6 mg/dLTRIGLYCERIDES 150.0 mg/dLCHOLESTEROL 160.0 mg/ dLHDL 51.0 mg/dLTOT CHOL/HDL 3.1 LDL (CALC) 79.0 mg/dLGLUCOSE 316.0 mg/dLSODIUM 139.0 mmol/LPOTASSIUM 4.70 mmol/LCHLORIDE 105.0 mmol/LCO2 26.0 mmol/LBUN 13.0 mg /dLCREATININE 0.80 mg/dLSGOT/AST 19.0 IU/LSGPT/ALT 24.0 IU/LALK PHOS 101.0 IU/ LTOTAL PROTEIN 6.60 g/dLALBUMIN 4.30 g/dLTOTAL BILI 0.40 mg/dLCALCIUM 9.30 mg/ dLAGE 54 GFR NonAA 74 GFR AA 90 eGFR >60 mL/min/1.73 m2eGFR AA* >60 07/09/2015 4:40 PM Hemoglobin A1c 7.20 %Estim. Avg Glu (eAG) 160 mg/dL 01/03/2016 11:50 AM Hemoglobin A1c 6.50 %Estim. Avg Glu (eAG) 140 06/25/2016 3:32 PM GLUCOSE 113.0 mg/dLSODIUM 143.0 mmol/LPOTASSIUM 4.0 mmol/ LCHLORIDE 105.0 mmol/LCO2 26.0 mmol/LBUN 13.0 mg/dLCREATININE 0.70 mg/dLCALCIUM 9.40 mg/dLAGE 55 GFR NonAA 87 GFR AA 105 eGFR >60 mL/min/1.73meGFR AA* >60 MICROALBUMIN UR 19.0 ug/mLHGB A1C 6.80 %Est Avg Glucose 148.5 mg/dLWBC 7.1 RBC 4.50 HGB 14.30 g/dLHCT 41.20 %MCV 92.0 fLMCH 31.80 pgMCHC 34.70 g/dLRDW SD 44 RDW CV 13.0 %MPV 9.80 fLPLT 185 NRBC# 0.00 NRBC% 0.0 %NEUT 47.80 %%LYMP 42.50 %% MONO 7.60 %%EOS 1.40 %%BASO 0.60 %#NEUT 3.39 #LYMP 3.01 #MONO 0.54 #EOS 0.10 # BASO 0.04 MANUAL DIFF NOT IND 12/12/2016 9:48 AM HGB A1C 6.70 %Est Avg Glucose 145.6 mg/dLGLUCOSE 290.0 mg/ dLSODIUM 137.0 mmol/LPOTASSIUM 5.0 mmol/LCHLORIDE 104.0 mmol/LCO2 25.0 mmol/ LBUN 14.0 mg/dLCREATININE 0.80 mg/dLSGOT/AST 25.0 IU/LSGPT/ALT 34.0 IU/LALK PHOS 93.0 IU/LTOTAL PROTEIN 7.0 g/dLALBUMIN 4.40 g/dLTOTAL BILI 0.60 mg/ dLCALCIUM 9.30 mg/dLAGE 56 GFR NonAA 74 GFR AA 90 eGFR >60 mL/min/1.73meGFR AA * >60 MICROALBUMIN UR <0.5 ug/mLWBC 5.9 RBC 4.62 HGB 15.0 g/dLHCT 42.30 %MCV 92.0 fLMCH 32.50 pgMCHC 35.50 g/dLRDW SD 41 RDW CV 12.40 %MPV 9.50 fLPLT 183 NRBC# 0.00 NRBC% 0.0 %NEUT 61.90 %%LYMP 28.30 %%MONO 7.70 %%EOS 1.0 %%BASO 0.90 %#NEUT 3.63 #LYMP 1.66 #MONO 0.45 #EOS 0.06 #BASO 0.05 MANUAL DIFF NOT IND TRIGLYCERIDES 61.0 mg/dLCHOLESTEROL 174.0 mg/dLHDL 50.0 mg/dLTOT CHOL/HDL 3.5 LDL (CALC) 112.0 mg/dL History Of Immunizations Not available. History of Past Illness Name Date of Onset Comments Back Pain Leg Pain ankle pain Foot pain elbow pain hip pain Coccyx Pain Irritable bowel syndrome Neck pain Headache Diverticulitis Of Colon hernia Fibrocystic Disease Of Breast 2008 arthritis Diabetes Mellitus, Type I Neuropathy, bilateral feet Gastroesophageal Reflux 11/10/2013 Hyperlipidemia, unspecified 11/10/2013 Hypertension 11/10/2013 Chronic pain syndrome Jul 09 2010 9:31AM Lumbago--chronic in nature since her completed stress fx of her vertebrae Jul 09 2010 9:31AM Paresthesia Jul 09 2010 9:31AM SI joint pain R>L Jul 09 2010 9:31AM Muscle Spasm molina parspinal muscles and gluteal Jul 09 2010 9:31AM Dysphagia 01/30/2016 Dyspepsia 01/30/2016 Nausea 01/30/2016 IBS (irritable bowel syndrome) 01/30/2016 Constipation 01/30/2016 Diarrhea 01/30/2016 Encounter for screening colonoscopy 01/30/2016 Back Pain Jul 15 2013 10:42AM Diabetes Mellitus, Type II Jul 15 2013 10:42AM Hypertension Jul 15 2013 10:42AM Hyperlipidemia, unspecified Jul 15 2013 10:42AM Esophageal Reflux Jul 15 2013 10:42AM Diabetes Mellitus, Type II Jul 20 2013 11:24AM Diabetes Mellitus, Type II Aug 01 2013 11:43AM Hypertension Aug 01 2013 11:43AM Hyperlipidemia, unspecified Aug 01 2013 11:43AM Diabetes Mellitus, Type II, Uncontrolled Aug 10 2013 3:20PM Diabetes Mellitus, Type I Sep 09 2013 11:31AM Neuropathy, bilateral feet Sep 09 2013 11:31AM Leg cramps Sep 09 2013 11:31AM Diabetes Mellitus, Type II Oct 20 2013 11:38AM Hypertension Oct 20 2013 11:38AM Anxiety Disorder Oct 20 2013 11:38AM Diabetes Mellitus, Type II Nov 10 2013 11:33AM Hypertension Nov 10 2013 11:33AM Hyperlipidemia, unspecified Nov 10 2013 11:33AM Gastroesophageal Reflux Nov 10 2013 11:33AM Nevus Nov 10 2013 11:33AM Diabetes Mellitus, Type II, Uncontrolled Dec 30 2013 10:51AM Wasp sting Mar 16 2014 1:28PM Gastroesophageal Reflux Jan 18 2014 10:43AM Diabetes Mellitus, Type I Jan 18 2014 10:43AM arthritis Jan 18 2014 10:43AM Neuropathy, bilateral feet Jan 18 2014 10:43AM Diabetes Mellitus, Type II May 04 2014 2:07PM Hypertension May 04 2014 2:07PM Anxiety May 04 2014 2:07PM Hyperlipidemia Aug 22 2014 11:01AM Diabetes Mellitus, Type II Aug 22 2014 11:01AM Anxiety Disorder Aug 22 2014 11:01AM Diabetes mellitus, Type I Uncontrolled Sep 28 2014 3:41PM Adjustment disorder Sep 28 2014 3:41PM Fatigue Nov 21 2014 10:16AM Diabetes type 1, uncontrolled Nov 21 2014 10:16AM Muscle spasm of back Nov 21 2014 10:16AM Gastroesophageal Reflux Jan 19 2015 11:30AM Hyperlipidemia, unspecified Jan 19 2015 11:30AM Hypertension Jan 19 2015 11:30AM Diabetes Mellitus, Type I Jan 19 2015 11:30AM arthritis Jan 19 2015 11:30AM Neuropathy, bilateral feet Jan 19 2015 11:30AM 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 4:13PM Type 1 diabetes mellitus Mar 07 2015 4:13PM Gastroesophageal Reflux Mar 07 2015 4:13PM Hyperlipidemia, unspecified Mar 07 2015 4:13PM Hypertension Mar 07 2015 4:13PM arthritis Mar 07 2015 4:13PM Neuropathy, bilateral feet Mar 07 2015 4:13PM Diabetic neuropathy Mar 07 2015 4:13PM Diabetes Mellitus, Type II Jul 09 2015 4:27PM Hypertension Jul 09 2015 3:48PM Anxiety Oct 05 2015 9:18AM Type 2 diabetes mellitus without complication Jan 01 2016 11:46AM Anxiety Jan 01 2016 11:46AM Reflux esophagitis Jan 01 2016 11:46AM Microalbuminuria Jan 01 2016 11:46AM Essential hypertension Jan 01 2016 11:46AM Neuropathy Jan 01 2016 11:46AM Tobacco abuse Jan 01 2016 11:46AM Dysphagia Jan 30 2016 11:34AM Dyspepsia Jan 30 2016 11:34AM Nausea Jan 30 2016 11:34AM IBS (irritable bowel syndrome) Jan 30 2016 11:34AM Constipation Jan 30 2016 11:34AM Diarrhea Jan 30 2016 11:34AM Encounter for screening colonoscopy Jan 30 2016 11:34AM Acid Reflux Mar 18 2016 11:22AM Allergic Rhinitis Mar 18 2016 11:22AM Type 1 diabetes mellitus Mar 18 2016 11:22AM Tobacco dependence Mar 18 2016 11:22AM Type 1 diabetes mellitus without complication Jun 25 2016 2:41PM Allergic Rhinitis Aug 06 2016 1:44PM Diabetes mellitus type 1 Aug 06 2016 1:44PM Bilateral carpal tunnel syndrome Aug 06 2016 1:44PM Controlled type 1 diabetes mellitus Oct 07 2016 3:23PM Bronchitis Oct 07 2016 3:23PM Hypertension Dec 12 2016 9:42AM Hyperlipidemia, unspecified Dec 12 2016 9:42AM Diabetes mellitus type 1, uncontrolled Dec 12 2016 9:42AM Diabetes type 1, uncontrolled Dec 11 2016 3:32PM Diabetes type 1, controlled Feb 03 2017 11:37AM Eustachian tube disorder, left Mar 02 2017 11:28AM Payers Insurance Name Company Name Plan Name Plan Number Policy Number Policy Group Number Start Date Medicare [facility] Medicare [facility] [id number] N/A [place] [facility] - [facility] [id number] Saturday, 2013 Medicare Part A Medicare - Lab/ay [id number] Wednesday, March 26, 2008 Medicare Part B Medicare Of [place] [id number] Wednesday, March 26, 2008 [place] [facility] [place] [facility] [place] Medical [place] Prog [id number] N/A Medicare Part A Medicare Part A [id number] Wednesday, March 26, 2008 [facility] Comm [id number] Friday, October 26, 2012 History of Encounters Visit Date Visit Type Provider 03/02/2017 Office visit Anastacia Lee ALLEY CLEANER 02/03/2017 Office visit Sri Guevara MD 12/11/2016 Office visit Sri Guevara MD 10/07/2016 Office visit Mahin Malik ALLEY CLEANER 08/06/2016 Office visit Sri Guevara MD 06/25/2016 Office visit Sri Guevara MD 03/18/2016 Office visit Sri Guevara MD 01/30/2016 Office visit 01/30/2016 Office visit Reza Guadarrama DO 01/01/[address] Dianna Xiong DO 10/05/2015 Office visit Anastacia Lee ALLEY CLEANER 07/09/2015 Office visit Sri Guevara MD 03/07/2015 Office visit Sri Guevara MD 01/19/2015 Office visit Sri Guevara MD 11/21/2014 Office visit Sri Guevara MD 09/28/2014 Office visit Sri Guevara MD 08/22/2014 Office visit Gretta Paz ALLEY CLEANER 05/04/2014 Office visit Anastacia Lee ALLEY CLEANER 03/16/2014 Office visit Gretta Paz ALLEY CLEANER 01/18/2014 Office visit Sri Guevara MD 12/30/2013 Office visit Anastacia Lee ALLEY CLEANER 11/15/2013 Voided Luiz Goldberg MD 11/10/2013 Office visit Anastacia Lee ALLEY CLEANER 10/20/2013 Office visit Anastacia Lee ALLEY CLEANER 09/09/2013 Office visit Sri Guevara MD 08/10/2013 Office visit Sri Guevara MD 08/01/2013 Office visit Anastacia Lee ALLEY CLEANER 07/20/2013 Office visit Anastacia Lee ALLEY CLEANER 07/15/2013 Office visit Anastacia Lee ALLEY CLEANER 07/09/2010 Office visit Laura Sharp MD
--- OUTSIDE RECORDS SUMMARY | 2018-01-12 18:07 | XMS REPORT ---
Author Author Sri Guevara Organization [facility] Address [address] [place], [place] [id number] Care Team Providers Care Log Deck Tender Name Role Phone Sri Guevara PCP Allergies and Adverse Reactions Name Reaction Notes Tape op site covering Molds codeine sulfate Plan of Treatment Planned Activity Comments Planned Date Planned Time Plan/Goal GLYCOSYLATED HEMOGLOBIN TEST 07/09/2015 12:00 AM Medications Active Name Start Date Estimated Completion Date SIG Comments Lortab 7.5-500 mg oral tablet take 1 tablet by oral route every 6 hours as needed for pain Lantus Solostar 100 unit/mL (3 mL) subcutaneous insulin pen inject by subcutaneous route as per insulin protocol BD Ultra-Fine Izzy Pen [place] 32 x 5/32 " miscellaneous needle 05/08/2014 USE DIRECTED cyclobenzaprine oral gemfibrozil 600 mg [...] AND EVENING MEAL BD Ultra-Fine Izzy Pen [place] 32 x 5/32 " miscellaneous needle 09/18/2014 USE DIRECTED insulin syringe-needle U-100 0.3 mL 30 miscellaneous syringe 09/20/2014 USE DIRECTED insulin syringe-needle U-100 0.3 mL 30 miscellaneous syringe 10/15/2014 USE DIRECTED BD Ultra-Fine Izzy Pen [place] 32 x 5/32 " miscellaneous needle 10/30/2014 USE DIRECTED insulin syringe-needle [...] take 1 tablet by oral route daily OneTouch Ultra Test miscellaneous strip 03/20/2015 03/14/2016 Patient to test 4-5 times per day. Dx: Diabetes Mellitus 250.01 Lantus Solostar 100 unit/mL (3 mL) subcutaneous insulin pen 03/22/2015 INJECT 10 UNITS DAILY, MAY INCREASE BY 2 UNITS DAILY DIRECTED doxazosin 4 mg oral tablet 03/29/2015 TAKE 1 TABLET (4 MG) BY ORAL ROUTE ONCE DAILY FOR 30 DAYS ibuprofen 400 mg oral tablet 04/18/2015 TAKE 1 TABLET (400 MG) BY ORAL ROUTE EVERY 6 HOURS NEEDED FOR PAIN FOR 30 DAYS Novolog 100 unit/mL subcutaneous solution 04/20/2015 USE TWICE DAILY PER SLIDING SCALE(UP TO 8 UNITS PER USE) insulin syringe-needle U-100 0.3 mL 30 miscellaneous [...] UNITS DAILY DIRECTED BD Ultra-Fine Izzy Pen [place] 32 x 5/32 " miscellaneous needle 07/05/2015 USE DIRECTED alprazolam 0.5 mg oral tablet 07/09/2015 08/08/2015 take 1 tablet by oral route 2 times a day as needed for 30 days doxazosin 4 mg oral tablet 07/09/2015 07/03/2016 TAKE 1 TABLET (4 MG) BY ORAL ROUTE ONCE DAILY FOR 30 DAYS for 90 days pantoprazole 40 mg oral tablet,delayed release (/EC) 07/09/2015 12/30/2016 TAKE ONE TABLET BY MOUTH DAILY for 90 days Name Start Date Expiration Date SIG Comments [...] 04/06/2015 use as directed for 30 days Discontinued Name Start Date [...] tablet (150 mg) by oral route once Problem List Description Status Onset Diabetes Mellitus, Type I Active arthritis Active Neuropathy, bilateral feet Active Gastroesophageal Reflux Active 11/10/2013 Hyperlipidemia, unspecified Active 11/10/2013 Hypertension Active 11/10/2013 Vital Signs Date Time BP-Sys(mm[Hg] BP-Klarissa(mm[Hg]) HR(bpm) RR(rpm) Temp WT HT HC BMI BSA BMI Percentile O2 Sat(%) 07/09/2015 3:46:00 PM 182 mmHg 82 mmHg [...] Comments Housing Lives in a house in [place], [place] lives alone 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 Tobacco Use Alcohol Current - status unknown Marijuana 1-2 times per week Did not serve in Tobacco Current every day smoker History of Procedures Date Ordered Description Order Status 08/10/2013 12:00 AM COMPREHEN METABOLIC PANEL Reviewed 09/09/2013 12:00 AM GLYCOSYLATED HEMOGLOBIN TEST Reviewed 09/09/2013 12:00 AM ASSAY THYROID STIM HORMONE Reviewed 01/06/2014 12:00 AM COMPLETE CBC W/AUTO DIFF WBC Returned 01/06/2014 12:00 AM COMPREHEN METABOLIC PANEL Returned 01/06/2014 12:00 AM LIPID PANEL Returned 01/06/2014 12:00 AM GLYCOSYLATED HEMOGLOBIN TEST Returned 05/04/2014 12:00 AM COMPREHEN METABOLIC PANEL Returned 05/04/2014 12:00 AM GLYCOSYLATED HEMOGLOBIN TEST Returned 11/21/2014 12:00 AM METABOLIC PANEL TOTAL CA Returned 11/21/2014 12:00 AM COMPLETE CBC W/AUTO DIFF WBC Returned 11/21/2014 12:00 AM GLYCOSYLATED HEMOGLOBIN TEST Returned 11/21/2014 12:00 AM ASSAY THYROID STIM HORMONE Returned 11/21/2014 12:00 AM MICROALBUMIN QUANTITATIVE Returned 03/07/2015 12:00 AM COMPLETE CBC W/AUTO DIFF WBC Returned 03/07/2015 12:00 AM COMPREHEN METABOLIC PANEL Returned 03/07/2015 12:00 AM LIPID PANEL Returned 03/07/2015 12:00 AM GLYCOSYLATED HEMOGLOBIN TEST Returned Results Summary Data and Description Results 08/10/2013 4:15 PM GLUCOSE 306.0 mg/dLSODIUM 138.0 mmol/LPOTASSIUM 4.40 mmol/ LCHLORIDE 101.0 mmol/LCO2 26.0 mmol/LBUN 13.0 mg/dLCREATININE 0.80 mg/dLSGOT/ AST 17.0 IU/LSGPT/ALT 27.0 IU/LALK PHOS 115.0 IU/LTOTAL PROTEIN 7.10 g/ dLALBUMIN 4.70 g/dLTOTAL BILI 0.40 mg/dLCALCIUM 10.40 mg/dLeGFR >60 mL/min/1.73 m2 10/06/2013 1:38 PM TSH 1.740 uIU/mLHGB A1C 11.50 %Est Avg Glucose 283.4 mg/dL 01/10/2014 8:08 AM WBC 5.9 RBC 4.61 HGB 14.90 g/dLHCT 41.70 %MCV 91.0 fLMCH 32.30 pgMCHC 35.70 g/dLRDW CV 12.60 %MPV 10.40 fLPLT 175 %NEUT 52.60 %%LYMP 38.30 %%MONO 7.20 %%EOS 1.20 %%BASO 0.70 %#NEUT 3.09 #LYMP 2.25 #MONO 0.42 #EOS 0.07 #BASO 0.04 GLUCOSE 138.0 mg/dLSODIUM 141.0 mmol/LPOTASSIUM 4.40 mmol/ LCHLORIDE 108.0 mmol/LCO2 21.0 mmol/LBUN 13.0 mg/dLCREATININE 0.60 mg/dLSGOT/ AST 27.0 IU/LSGPT/ALT 40.0 IU/LALK PHOS 82.0 IU/LTOTAL PROTEIN 6.60 g/dLALBUMIN 4.30 g/dLTOTAL BILI 0.50 mg/dLCALCIUM 9.20 mg/dLeGFR >60 mL/min/1.73 [id number] 64.0 mg/dLCHOLESTEROL 102.0 mg/dLHDL 48.0 mg/dLLDL (CALC) 41.0 mg/dLHGB A1C 6.50 %Est Avg Glucose 139.9 mg/dLCREAT UR 101.90 mg/dLMICROALBUMIN UR 13.0 ug/mLALB:CREAT RATIO 13 05/04/2014 3:02 PM HGB A1C 7.40 %Est Avg Glucose 165.7 mg/dLGLUCOSE 158.0 mg/ dLSODIUM 141.0 mmol/LPOTASSIUM 4.30 mmol/LCHLORIDE 107.0 mmol/LCO2 23.0 mmol/ LBUN 12.0 mg/dLCREATININE 0.60 mg/dLSGOT/AST 16.0 IU/LSGPT/ALT 20.0 IU/LALK PHOS 83.0 IU/LTOTAL PROTEIN 6.90 g/dLALBUMIN 4.30 g/dLTOTAL BILI 0.40 mg/ dLCALCIUM 9.80 mg/dLeGFR 60 12/21/2014 1:30 PM MICROALBUMIN UR 18.0 ug/mLGLUCOSE 262.0 mg/dLSODIUM 139.0 mmol/LPOTASSIUM 4.10 mmol/LCHLORIDE 104.0 mmol/LCO2 24.0 mmol/LBUN 12.0 mg/ dLCREATININE 0.70 mg/dLCALCIUM 9.90 mg/dLeGFR >60 mL/min/1.73 m2TSH 0.790 uIU/ mLWBC 6.5 RBC 4.30 HGB 14.0 g/dLHCT 40.10 %MCV 93.0 fLMCH 32.60 pgMCHC 34.90 g/ dLRDW CV 12.50 %MPV 10.10 fLPLT 184 %NEUT 50.40 %%LYMP 42.60 %%MONO 5.30 %%EOS 1.10 %%BASO 0.60 %#NEUT 3.26 #LYMP 2.75 #MONO 0.34 #EOS 0.07 #BASO 0.04 HGB A1C 8.60 %Est Avg Glucose 200.1 mg/dL 03/27/2015 12:05 PM WBC 7.2 RBC 4.50 HGB 14.50 g/dLHCT 41.20 %MCV 92.0 fLMCH 32.20 pgMCHC 35.20 g/dLRDW CV 12.60 %MPV 9.90 fLPLT 167 %NEUT 66.90 %%LYMP 27.70 %%MONO 4.60 %%EOS 0.40 %%BASO 0.40 %#NEUT 4.82 #LYMP 2.00 #MONO 0.33 #EOS 0.03 #BASO 0.03 HGB A1C 6.70 %Est Avg Glucose 145.6 mg/dLTRIGLYCERIDES 150.0 mg/ dLCHOLESTEROL 160.0 mg/dLHDL 51.0 mg/dLLDL (CALC) 79.0 mg/dLGLUCOSE 316.0 mg/ dLSODIUM 139.0 mmol/LPOTASSIUM 4.70 mmol/LCHLORIDE 105.0 mmol/LCO2 26.0 mmol/ LBUN 13.0 mg/dLCREATININE 0.80 mg/dLSGOT/AST 19.0 IU/LSGPT/ALT 24.0 IU/LALK PHOS 101.0 IU/LTOTAL PROTEIN 6.60 g/dLALBUMIN 4.30 g/dLTOTAL BILI 0.40 mg/ dLCALCIUM 9.30 mg/dLeGFR >60 mL/min/1.73 m2 History Of Immunizations Not available. History of Past Illness Name Date of Onset Comments Back pain Leg Pain ankle pain Foot pain elbow [...] muscles and gluteal Jul 09 2010 9:31AM Back Pain Jul 15 2013 10:42AM Diabetes [...] Mellitus, Type II Jul 09 2015 4:27PM Payers Insurance Name Company Name Plan Name Plan Number Policy Number Policy Group Number Start Date Medicare Part A Medicare Part A [id number] Wednesday, 2008 [place] Pst Specialist Prog - [facility] Pst Specialist Pro - [facility] [id number] Saturday, 2013 [facility] - [facility] - [facility] Comm [id number] Friday, 2012 Medicare Part B Medicare Of [place] [id number] Wednesday, 2008 [place] Medical Assistance [place] Medical [place] Pro[place] [id number] N/A History of Encounters Visit Date Visit Type Provider 07/09/2015 Office visit Sri Guevara MD 03/07/2015 Office visit Sri Guevara MD 01/19/2015 Office visit Sri Guevara MD 11/21/2014 Office visit Sri Guevara MD 09/28/2014 Office visit Sri Guevara MD 08/22/2014 Office visit Gretta Paz UNLEAVENED DOUGH MIXER 05/04/2014 Office visit Anastacia Lee UNLEAVENED DOUGH MIXER 03/16/2014 Office visit Gretta Paz UNLEAVENED DOUGH MIXER 01/18/2014 Office visit Sri Guevara MD 12/30/2013 Office visit Anastacia Lee UNLEAVENED DOUGH MIXER 11/15/2013 Voided Luiz Goldberg MD 11/10/2013 Office visit Anastacia Lee UNLEAVENED DOUGH MIXER 10/20/2013 Office visit Anastacia Lee UNLEAVENED DOUGH MIXER 09/09/2013 Office visit Sri Guevara MD 08/10/2013 Office visit Sri Guevara MD 08/01/2013 Office visit Anastacia Lee UNLEAVENED DOUGH MIXER 07/20/2013 Office visit Anastacia Lee UNLEAVENED DOUGH MIXER 07/15/2013 Office visit Anastacia Lee UNLEAVENED DOUGH MIXER 07/09/2010 Office visit Laura Sharp MD
--- OUTSIDE RECORDS SUMMARY | 2018-01-12 18:08 | XMS REPORT ---
Author Author Sri Guevara Organization [facility] Address [address] [place], [place] [id number] Care Team Providers Care Cinder Crew Worker Name Role Phone Sri Guevara PCP Sri Guevara PreferredProvider Allergies and Adverse Reactions [...] per insulin protocol BD Ultra-Fine Izzy Pen [place] 32 gauge x 5/32" miscellaneous needle 2013 [...] AND EVENING MEAL BD Ultra-Fine Izzy Pen [place] 32 gauge x 5/32" miscellaneous needle 2013 USE DIRECTED insulin syringe-needle U-100 0.3 mL 30 miscellaneous syringe 09/20/2014 USE DIRECTED insulin syringe-needle U-100 0.3 mL 30 miscellaneous syringe 10/15/2014 USE DIRECTED BD Ultra-Fine Izzy Pen [place] 32 gauge x 5/32" miscellaneous needle 10/30/2014 [...] UNITS DAILY DIRECTED BD Ultra-Fine Izzy Pen [place] 32 gauge x 5/32" miscellaneous needle 2014 [...] FOR 30 DAYS BD Ultra-Fine Izzy Pen [place] 32 gauge x 5/32" miscellaneous needle 2015 USE DIRECTED magnesium 250 [...] IN THE MORNING BD Ultra-Fine Izzy Pen [place] 32 gauge x 5/32" miscellaneous needle 2016 USE DIRECTED Novolog 100 unit/mL subcutaneous solution 01/06/2017 02/05/2017 patient needs 2 vials for her VGO. Name Start Date Expiration Date SIG Comments [...] HC BMI BSA BMI Percentile O2 Sat(%) 02/03/2017 11:33:00 AM 150 mmHg 86 mmHg 87 bpm 18 rpm 99.1 F 166 lbs 68 in 25.24 kg/m2 1.90 m2 97 % 12/11/2016 3:27:00 PM 122 mmHg 82 mmHg 84 bpm 16 rpm 99 F 165.375 lbs 68 in 25.1449 kg/m 1.8971 m 94 % 10/07/2016 3:21:00 PM 142 mmHg 90 mmHg 89 bpm 16 rpm 96.1 F 165 lbs 68 in 25.09 kg/m2 1.89 m2 96 % 08/06/2016 1:41:00 PM 124 mmHg 80 mmHg 69 bpm 16 rpm 97.4 F 166.125 lbs 68 in 25.259 kg/m 1.9014 m 96 % 06/25/2016 2:37:00 PM 146 mmHg 82 mmHg 73 bpm 16 rpm 97.6 F 164.125 lbs 68 in 24.95 kg/m2 1.89 m2 96 % 03/18/2016 11:10:00 AM 128 mmHg 76 mmHg 82 bpm 16 rpm 98.7 F 164.375 lbs 68 in 24.9929 kg/m 1.8914 m 95 % 01/30/2016 11:21:00 AM 132 mmHg 77 mmHg 94 bpm 18 rpm 97 F 163.5 lbs 69 in 24.14 kg/m2 1.90 m2 01/01/2016 11:33:00 AM 132 mmHg 78 mmHg 106 bpm 18 rpm 98.1 F 168.5 lbs 69 in 24.8828 kg/m 1.929 m 94 % 10/05/2015 9:16:00 AM 148 mmHg 66 mmHg 76 bpm 18 rpm 96.2 F 163.5 lbs 69 in 24.14 kg/m2 1.90 m2 96 % 07/09/2015 3:46:00 PM 182 mmHg 82 mmHg 69 bpm 98.4 F 158 lbs 69 in 23.3323 kg/m 1.8679 m 97 % 03/07/2015 4:07:00 PM 120 mmHg 82 mmHg 81 bpm 97.1 F 154.25 lbs 69 in 22.78 kg/m2 1.85 m2 97 % 01/19/2015 11:27:00 AM 120 mmHg 80 mmHg 77 bpm 98.5 F 157.125 lbs 69 in 23.2031 kg/m 1.8627 m 97 % 11/21/2014 10:12:00 AM 110 mmHg 60 mmHg 81 bpm 16 rpm 97.4 F 162 lbs 69 in 23.92 kg/m2 1.89 m2 96 % 09/28/2014 3:36:00 PM 140 mmHg 72 mmHg 76 bpm 18 rpm 97.5 F 159.375 lbs 69 in 23.5353 kg/m 1.876 m 97 % 08/22/2014 10:57:00 AM 134 mmHg 84 mmHg 76 bpm 18 rpm 98 F 165 lbs 69 in 24.37 kg/m2 1.91 m2 96 % 05/04/2014 2:04:00 PM 126 mmHg 64 mmHg 65 bpm 18 rpm 97.8 F 164.125 lbs 69 in 24.2368 kg/m 1.9038 m 97 % 03/16/2014 1:26:00 PM 138 mmHg 94 mmHg 82 bpm 16 rpm 98.3 F 166.8 lbs 69 in 24.63 kg/m2 1.92 m2 96 % 01/18/2014 10:40:00 AM 110 mmHg 80 mmHg 83 bpm 18 rpm 97.9 F 168 lbs 69 in 24.809 kg/m 1.9261 m 96 % 12/30/2013 10:49:00 AM 142 mmHg 74 mmHg 82 bpm 18 rpm 97.1 F 169 lbs 69 in 24.96 kg/m2 1.93 m2 94 % 11/10/2013 11:30:00 AM 138 mmHg 76 mmHg 81 bpm 18 rpm 97.3 F 166.375 lbs 69 in 24.569 kg/m 1.9168 m 95 % 10/20/2013 11:30:00 AM 142 mmHg 84 mmHg 82 bpm 18 rpm 96.7 F 162 lbs 69 in 23.92 kg/m2 1.89 m2 96 % 09/09/2013 11:27:00 AM 118 mmHg 65 mmHg 80 bpm 18 rpm 98.2 F 155 lbs 69 in 22.8893 kg/m 1.8501 m 96 % 08/10/2013 3:09:00 PM 115 mmHg 80 mmHg 71 bpm 18 rpm 97.8 F 156 lbs 69 in 23.04 kg/m2 1.86 m2 96 % 08/01/2013 11:38:00 AM 140 mmHg 90 mmHg 80 bpm 96.9 F 155 lbs 69 in 22.8893 kg/m 1.8501 m 07/20/2013 11:20:00 AM 128 mmHg 66 mmHg 108 bpm 18 rpm 97.4 F 155.25 lbs 96 % 07/15/2013 10:40:00 AM 140 mmHg 82 mmHg 86 bpm 18 rpm 97.6 F 155.5 lbs 96 % 07/09/2010 9:29:00 AM 140 mmHg 90 mmHg 78 bpm 16 rpm 97.6 F 179 lbs Social History Name Description Comments Housing Lives in a house in [place], [place] lives alone 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 Tobacco Use Alcohol Current - status unknown States she stopped drinking one year ago d/ t diabetes Marijuana 1-2 times per week Did not serve in [employer] Tobacco Current every day smoker History of [...] 14.50 g/dLHCT 41.20 %MCV 92.0 fLMCH 32.20 pgHC 35.20 g/dLRDW SD 42 RDW CV 12.60 [...] type 1, controlled Feb 03 2017 11:37AM Payers Insurance Name Company Name Plan Name Plan Number Policy Number Policy Group Number Start Date Medicare [facility] Medicare RHC [id number] N/A [place] [facility] [id number] Saturday, 2013 Medicare Part A Medicare - Lab/Xray [id number] Wednesday, March 26, 2008 Medicare Part B Medicare Of [place] [id number] Wednesday, March 26, 2008 [place] Medical Assistance [facility] Medical Assistance Prog [id number] N/A Medicare Part A Medicare Part A [id number] Wednesday, March 26, 2008 [facility] Comm [id number] Friday, October 26, 2012 History of Encounters Visit Date Visit Type Provider 02/03/2017 Office visit Sri Guevara MD 12/11/2016 Office visit Sri Guevara MD 10/07/2016 Office visit Mahin Malik SKIVER UPPERS OR LININGS 08/06/2016 Office visit Sri Guevara MD 06/25/2016 Office visit Sri Guevara MD 03/18/2016 Office visit Sri Guevara MD 01/30/2016 Office visit 01/30/2016 Office visit Reza Guadarrama DO 01/01/[address] Dianna Xiong DO 10/05/2015 Office visit Anastacia Lee SKIVER UPPERS OR LININGS 07/09/2015 Office visit Sri Guevara MD 03/07/2015 Office visit Sri Guevara MD 01/19/2015 Office visit Sri Guevara MD 11/21/2014 Office visit Sri Guevara MD 09/28/2014 Office visit Sri Guevara MD 08/22/2014 Office visit Gretta Paz SKIVER UPPERS OR LININGS 05/04/2014 Office visit Anastacia Lee SKIVER UPPERS OR LININGS 03/16/2014 Office visit Gretta Paz SKIVER UPPERS OR LININGS 01/18/2014 Office visit Sri Guevara MD 12/30/2013 Office visit Anastacia Lee SKIVER UPPERS OR LININGS 11/15/2013 Voided Luiz Goldberg MD 11/10/2013 Office visit Anastacia Lee SKIVER UPPERS OR LININGS 10/20/2013 Office visit Anastacia Lee SKIVER UPPERS OR LININGS 09/09/2013 Office visit Sri Guevara MD 08/10/2013 Office visit Sri Guevara MD 08/01/2013 Office visit Anastacia Lee SKIVER UPPERS OR LININGS 07/20/2013 Office visit Anastacia Lee SKIVER UPPERS OR LININGS 07/15/2013 Office visit Anastacia Lee SKIVER UPPERS OR LININGS 07/09/2010 Office visit Laura Sharp MD
--- OUTSIDE RECORDS SUMMARY | 2018-01-12 18:09 | XMS REPORT ---
Author Author Sri Guevara Organization [facility] Address [address] [facility] [address] [place], [place] [id number] Care Team Providers Care Library Historian Name Role Phone Sri Guevara PCP Allergies and Adverse Reactions Name Reaction Notes Tape op site covering Molds codeine sulfate lisinopril cough ranitidine HCl IBS symptoms Plan of Treatment Planned Activity Comments Planned Date Planned Time Plan/Goal GLYCOSYLATED HEMOGLOBIN TEST 07/09/2015 12:00 AM GLYCOSYLATED HEMOGLOBIN TEST 04/06/2016 12:00 AM Medications Active Name Start Date Estimated Completion Date SIG Comments Lortab 7.5-500 mg oral tablet take 1 tablet by oral route every 6 hours as needed for pain Lantus Solostar 100 unit/mL (3 mL) subcutaneous insulin pen inject by subcutaneous route as per insulin protocol BD Ultra-Fine Izzy Pen [place] 32 gauge x 5/32" miscellaneous needle 2013 [...] AND EVENING MEAL BD Ultra-Fine Izzy Pen [place] 32 gauge x 5/32" miscellaneous needle 2013 USE DIRECTED insulin syringe-needle U-100 0.3 mL 30 miscellaneous syringe 09/20/2014 USE DIRECTED insulin syringe-needle U-100 0.3 mL 30 miscellaneous syringe 10/15/2014 USE DIRECTED BD Ultra-Fine Izzy Pen [place] 32 gauge x 5/32" miscellaneous needle 10/30/2014 [...] UNITS DAILY DIRECTED BD Ultra-Fine Izzy Pen [place] 32 gauge x 5/32" miscellaneous needle 2014 [...] HOURS NEEDED FOR PAIN FOR 30 DAYS doxazosin 4 mg oral tablet 01/01/2016 12/26/2016 TAKE 1 TABLET (4 MG) BY ORAL ROUTE ONCE DAILY FOR 30 DAYS for 90 days OneTouch Ultra Test miscellaneous strip 01/04/2016 12/29/2016 Patient to test 4 -5 times per day. Dx: Diabetes Mellitus 250.01 BD Ultra-Fine Izzy Pen [place] 32 gauge x " miscellaneous needle 2015 USE DIRECTED magnesium 250 [...] PER USE) Novolog 100 unit/mL subcutaneous solution 06/16/2016 INJECT UP TO 8 UNITS SUBCUTANEOUSLY PER SLIDING SCALE TWICE DAILY(DISCARD OPEN VIAL AFTER 28 DAYS) Lantus Solostar 100 unit/mL (3 mL) subcutaneous insulin pen 07/04/20162016 INJECT 10 UNITS in the evening and 28 units in the morning ibuprofen 400 mg oral tablet 07/22/2016 TAKE 1 TABLET (400 MG) BY ORAL ROUTE EVERY 6 HOURS NEEDED FOR PAIN FOR 30 DAYS alprazolam 0.5 mg oral tablet 07/31/2016 08/30/2016 take 1 tablet by oral route 2 times a day as needed for 30 days Name Start Date Expiration Date SIG [...] per day with food for 5 days Acid Control (ranitidine) 150 mg oral tablet 01/03/2016 02/02/2016 take 1 tablet (150 mg) by oral route once daily at bedtime for 30 days amoxicillin 250 mg oral capsule 06/25/2016 07/05/2016 take 1 capsule (250 mg) by oral route every 8 hours for 10 days Discontinued Name Start Date Discontinued Date [...] HC BMI BSA BMI Percentile O2 Sat(%) 08/06/2016 1:41:00 PM 124 mmHg 80 mmHg [...] Comments Housing Lives in a house in [place], [place] lives alone 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 Tobacco Use Alcohol Current - status unknown States she stopped drinking one year ago d/ t diabetes Marijuana 1-2 times per week Did not serve in [employer] Tobacco Current every day smoker History of Procedures Date Ordered Description Order Status 01/01/2016 12:00 AM GLYCOSYLATED HEMOGLOBIN TEST Returned 01/30/2016 12:00 AM UPPER GI ENDOSCOPY PERFORMED Reviewed 01/30/2016 12:00 AM Screening, Colonoscopy,Colorectal Reviewed 06/25/2016 12:00 AM METABOLIC PANEL TOTAL CA Returned 06/25/2016 12:00 AM COMPLETE CBC W/AUTO DIFF WBC Returned 06/25/2016 12:00 AM GLYCOSYLATED HEMOGLOBIN TEST Returned 06/25/2016 12:00 AM ALBUMIN URINE MICROALBUMIN QUANTIATIVE Returned 08/10/2013 12:00 AM COMPREHEN METABOLIC PANEL [...] 03/07/2015 12:00 AM GLYCOSYLATED HEMOGLOBIN TEST Returned 07/09/2015 12:00 AM GLYCOSYLATED HEMOGLOBIN TEST Returned Results Summary Data and Description Results 08/10/2013 4:15 PM GLUCOSE 306.0 mg/dLSODIUM 138.0 mmol/LPOTASSIUM 4.40 mmol/ LCHLORIDE 101.0 mmol/LCO2 26.0 mmol/LBUN 13.0 mg/dLCREATININE 0.80 mg/dLSGOT/ AST 17.0 IU/LSGPT/ALT 27.0 IU/LALK PHOS 115.0 IU/LTOTAL PROTEIN 7.10 g/ dLALBUMIN 4.70 g/dLTOTAL BILI 0.40 mg/dLCALCIUM 10.40 mg/dLeGFR >60 mL/min/1.73 m2 10/06/2013 1:38 PM TSH 1.740 uIU/mLEst Avg Glucose 283.4 mg/dL 01/10/2014 8:08 AM [...] BILI 0.50 mg/dLCALCIUM 9.20 mg/dLeGFR >60 mL/min/1.73 [id number] 64.0 mg/dLCHOLESTEROL 102.0 mg/dLHDL 48.0 mg/dLLDL (CALC) 41.0 mg/dLEst Avg Glucose 139.9 mg/dLCREAT UR 101.90 mg/dLMICROALBUMIN UR 13.0 ug/ mLALB:CREAT RATIO 13 05/04/2014 3:02 PM Est Avg Glucose 165.7 mg/dLGLUCOSE 158.0 mg/dLSODIUM 141.0 mmol/LPOTASSIUM 4.30 mmol/LCHLORIDE 107.0 mmol/LCO2 23.0 mmol/LBUN 12.0 mg/ dLCREATININE 0.60 mg/dLSGOT/AST 16.0 IU/LSGPT/ALT 20.0 IU/LALK PHOS 83.0 IU/ LTOTAL PROTEIN 6.90 g/dLALBUMIN 4.30 g/dLTOTAL BILI 0.40 mg/dLCALCIUM 9.80 mg/ dLeGFR 60 12/21/2014 1:30 PM MICROALBUMIN UR 18.0 [...] 2.75 #MONO 0.34 #EOS 0.07 #BASO 0.04 Est Avg Glucose 200.1 mg/dL 03/27/2015 12:05 PM WBC 7.2 RBC 4.50 HGB 14.50 g/dLHCT 41.20 %MCV 92.0 fLMCH 32.20 pgMCHC 35.20 g/dLRDW CV 12.60 %MPV 9.90 fLPLT 167 %NEUT 66.90 %%LYMP 27.70 %%MONO 4.60 %%EOS 0.40 %%BASO 0.40 %#NEUT 4.82 #LYMP 2.00 #MONO 0.33 #EOS 0.03 #BASO 0.03 Est Avg Glucose 145.6 mg/dLTRIGLYCERIDES 150.0 mg/dLCHOLESTEROL 160.0 mg/dLHDL 51.0 mg/dLLDL (CALC) 79.0 mg/dLGLUCOSE 316.0 mg/dLSODIUM 139.0 mmol/LPOTASSIUM 4.70 mmol/LCHLORIDE 105.0 mmol/LCO2 26.0 mmol/LBUN 13.0 mg/ dLCREATININE 0.80 mg/dLSGOT/AST 19.0 IU/LSGPT/ALT 24.0 IU/LALK PHOS 101.0 IU/ LTOTAL PROTEIN 6.60 g/dLALBUMIN 4.30 g/dLTOTAL BILI 0.40 mg/dLCALCIUM 9.30 mg/ dLeGFR >60 mL/min/1.73 m2 07/09/2015 4:40 PM Estim. Avg Glu (eAG) 160 mg/dL 06/25/2016 3:32 PM GLUCOSE 113.0 mg/dLSODIUM 143.0 mmol/LPOTASSIUM 4.0 mmol/ LCHLORIDE 105.0 mmol/LCO2 26.0 mmol/LBUN 13.0 mg/dLCREATININE 0.70 mg/dLCALCIUM 9.40 mg/dLeGFR >60 mL/min/1.73mMICROALBUMIN UR 19.0 ug/mLEst Avg Glucose 148.5 mg/dLWBC 7.1 RBC 4.50 HGB 14.30 g/dLHCT 41.20 %MCV 92.0 fLMCH 31.80 pgMCHC 34.70 g/dLRDW CV 13.0 %MPV 9.80 fLPLT 185 %NEUT 47.80 %%LYMP 42.50 %% MONO 7.60 %%EOS 1.40 %%BASO 0.60 %#NEUT 3.39 #LYMP 3.01 #MONO 0.54 #EOS 0.10 # BASO 0.04 History Of Immunizations Not available. History of [...] carpal tunnel syndrome Aug 06 2016 1:44PM Payers Insurance Name Company Name Plan Name Plan Number Policy Number Policy Group Number Start Date Medicare Part A Medicare RHC [id number] N/A [facility] Asst Prog - [facility] Asst Pro - [facility] [id number] Saturday, 2013 Medicare Part A Medicare - Lab/ay [id number] Wednesday, March 26, 2008 Medicare Part B Medicare Of [place] [id number] Wednesday, March 26, 2008 [place] Medical Assistance [facility] Medical Assistance Pro [id number] N/A Medicare Part A Medicare Part A [id number] Wednesday, March 26, 2008 [facility] [place] - C - [facility] [id number] Friday, October 26, 2012 History of Encounters Visit Date Visit Type Provider 08/06/2016 Office visit Sri Guevara MD 06/25/2016 Office visit Sri Guevara MD 03/18/2016 Office visit Sri Guevara MD 01/30/2016 Office visit 01/30/2016 Office visit Reza Guadarrama DO 01/01/[address] Dianna Xiong DO 10/05/2015 Office visit Anastacia Lee BALLAST CLEANING MACHINE OPERATOR 07/09/2015 Office visit Sri Guevara MD 03/07/2015 Office visit Sri Guevara MD 01/19/2015 Office visit Sri Guevara MD 11/21/2014 Office visit Sri Guevara MD 09/28/2014 Office visit Sri Guevara MD 08/22/2014 Office visit Gretta Paz BALLAST CLEANING MACHINE OPERATOR 05/04/2014 Office visit Anastacia Lee BALLAST CLEANING MACHINE OPERATOR 03/16/2014 Office visit Gretta Paz BALLAST CLEANING MACHINE OPERATOR 01/18/2014 Office visit Sri Guevara MD 12/30/2013 Office visit Anastacia Lee BALLAST CLEANING MACHINE OPERATOR 11/15/2013 Voided Luiz Goldberg MD 11/10/2013 Office visit Anastacia Lee BALLAST CLEANING MACHINE OPERATOR 10/20/2013 Office visit Anastacia Lee BALLAST CLEANING MACHINE OPERATOR 09/09/2013 Office visit Sri Guevara MD 08/10/2013 Office visit Sri Guevara MD 08/01/2013 Office visit Anastacia Lee BALLAST CLEANING MACHINE OPERATOR 07/20/2013 Office visit Anastacia Lee BALLAST CLEANING MACHINE OPERATOR 07/15/2013 Office visit Anastacia Lee BALLAST CLEANING MACHINE OPERATOR 07/09/2010 Office visit Laura Sharp MD
--- OUTSIDE RECORDS SUMMARY | 2018-01-12 18:10 | XMS REPORT ---
Author Author Sri Guevara Organization [facility] Address [address] [place], [place] [address] Care Team Providers Care Mounter Saxophones Name Role Phone Sri Guevara PCP Allergies and Adverse Reactions Name Reaction Notes Tape op site covering Molds codeine sulfate Plan of Treatment Planned Activity Comments Planned Date Planned Time Plan/Goal COMPLETE CBC W/AUTO DIFF WBC 03/07/2015 12:00 AM COMPREHEN METABOLIC PANEL 03/07/2015 12:00 AM LIPID PANEL 03/07/2015 12:00 AM GLYCOSYLATED HEMOGLOBIN TEST 03/07/2015 12:00 AM Medications Active Name Start Date Estimated Completion Date SIG Comments Lortab Oral Tablet 7.5-500 mg take 1 tablet by oral route every 6 hours as needed for pain Lantus Solostar Subcutaneous Insulin Pen 100 unit/mL (3 mL) inject by subcutaneous route as per insulin protocol BD Ultra-Fine Izzy Pen [place] miscellaneous needle 32 x 5/32 " 05/08/2014 USE DIRECTED cyclobenzaprine oral gemfibrozil oral tablet 600 mg 08/22/2014 take 1 tablet (600 mg) by oral route 2 times per day 30 minutes before morning and evening meal Lantus Solostar subcutaneous insulin pen 100 unit/mL (3 mL) 08/22/2014 injection 15 units by subcutaneous route BID Novolog subcutaneous solution 100 unit/mL 08/22/2014 injection by subcutaneous route with sliding scale TID with meals gemfibrozil oral tablet 600 mg 08/22/2014 TAKE 1 TABLET (600 MG) BY ORAL ROUTE 2 TIMES PER DAY 30 MINUTES BEFORE MORNING AND EVENING MEAL BD Ultra-Fine Izzy Pen [place] miscellaneous needle 32 x 5/32 " 09/18/2014 USE DIRECTED insulin syringe-needle U-100 miscellaneous syringe 0.3 mL 30 09/20/2014 USE DIRECTED insulin syringe-needle U-100 miscellaneous syringe 0.3 mL 30 10/15/2014 USE DIRECTED BD Ultra-Fine Izzy Pen [place] miscellaneous needle 32 x 532 " 10/30/2014 USE DIRECTED insulin syringe-needle U-100 miscellaneous syringe 0.3 mL 30 11/13/2014 USE DIRECTED insulin syringe-needle U-100 miscellaneous syringe 0.3 mL 30 01/03/2015 USE DIRECTED Lantus Solostar subcutaneous insulin pen 100 unit/mL (3 mL) 01/19/2015 INJECT 15 UNITS BID, MAY INCREASE BY 2 UNITS DAILY DIRECTED Zanaflex oral capsule 4 mg take 1 capsule by oral route 3 times a day as needed insulin syringe-needle U-100 miscellaneous syringe 0.3 mL 30 02/02/2015 USE DIRECTED pantoprazole oral tablet,delayed release (DR/EC) 40 mg 02/02/2015 TAKE ONE TABLET BY MOUTH DAILY doxazosin oral tablet 4 mg 03/01/2015 TAKE 1 TABLET (4 MG) BY ORAL ROUTE ONCE DAILY FOR 30 DAYS Centrum Silver oral tablet 0.4-300-250 mg-mcg-mcg take 1 tablet by oral route daily Ketone Urine Test miscellaneous strip 03/07/2015 05/06/2015 use as directed for 30 days Blood Glucose Monitoring miscellaneous kit 03/07/2015 04/06/2015 use as directed for 30 days alprazolam oral tablet 0.5 mg 03/07/2015 06/05/2015 take 1 tablet by oral route 2 times a day as needed for 30 days Name Start Date Expiration Date SIG Comments Skelaxin Oral tablet 800 mg 09/09/2013 12/08/2013 take 1 tablet (800 mg) by oral route 3 times per day as needed for 30 days biotin Oral tablet 10 mg 09/12/2013 12/11/2013 take 1 tablet by oral route daily for 30 days doxazosin oral tablet 4 mg 02/27/2014 02/22/2015 take 1 tablet (4 mg) by oral route once daily for 30 days ibuprofen oral tablet 400 mg 02/27/2014 08/26/2014 take 1 tablet (400 mg) by oral route every 6 hours as needed for pain for 30 days Novolog subcutaneous solution 100 unit/mL 06/12/2014 07/12/2014 BID sliding scale: >120-180 take 2 units, 180-240 take 4 units, 240-300 take 6 units, 300- 350 take 8 units. If >350 take 8 units and recheck Soma oral tablet 250 mg 12/26/2014 01/02/2015 take 1 tablet by oral route once a day (at bedtime) for 7 days Discontinued Name Start Date Discontinued Date SIG Comments Soma Oral Tablet 350 mg 07/15/2013 1 or 2 a day Zantac Oral Tablet 150 mg 08/10/2013 take 1 tablet (150 mg) by oral route 2 times per day Claritin Oral Tablet 10 mg 07/15/2013 take 1 tablet (10 mg) by oral route once daily PRN metformin Oral tablet 1,000 mg 07/18/2013 08/10/2013 take 1 tablet by oral route 2 times a day Kombiglyze XR Oral tablet, ER multiphase 24 hr 2.5-1,000 mg 07/20/20132012 take 1 tablet by oral route once daily with the evening meal gabapentin Oral capsule 300 mg 09/09/2013 10/20/2013 take 1 capsule (300 mg ) by oral route 3 times per day for 90 days Glucerna Oral Liquid 09/09/2013 09/09/2013 take 250 milliliters by oral route 2 times a day for 90 days deleted Glucerna oral liquid 09/09/2013 10/20/2013 Take 250 ml by oral route twice a day for 90 days Patient unable to afford product Crestor oral tablet 20 mg 11/10/2013 08/22/2014 take 1 tablet (20 mg) by oral route once daily for 30 days Pt, quit Protonix oral tablet,delayed release (DR/EC) 40 mg 11/10/2013 03/07/2015 take 1 tablet by mouth daily Xanax oral tablet 0.5 mg 11/10/2013 01/31/2014 take 1 tablet by oral route daily meloxicam oral tablet 15 mg 03/16/2014 08/22/2014 take 1 tablet (15 mg) by oral route once daily triamcinolone acetonide topical cream 0.1 % 03/16/2014 08/22/2014 apply a thin layer to the affected area(s) by topical route 3 times per day Zanaflex oral tablet 4 mg 11/21/2014 gemfibrozil oral tablet 600 mg 10/23/2014 01/19/2015 TAKE 1 TABLET (600 MG) BY ORAL ROUTE 2 TIMES PER DAY 30 MINUTES BEFORE MORNING AND EVENING MEAL baclofen oral tablet 20 mg 11/21/2014 11/23/2014 take 1 tablet (20 mg) by oral route 3 times per day for 30 days Diflucan oral tablet 150 mg 02/22/2015 03/07/2015 take 1 tablet (150 mg) by oral route once Problem List Description Status Onset Diabetes Mellitus, Type I Active arthritis Active Neuropathy, bilateral feet Active Gastroesophageal Reflux Active 11/10/2013 Hyperlipidemia, unspecified Active 11/10/2013 Hypertension Active 11/10/2013 Vital Signs Date Time BP-Sys(mm[Hg] BP-Klarissa(mm[Hg]) HR(bpm) RR(rpm) Temp WT HT HC BMI BSA BMI Percentile O2 Sat(%) 03/07/2015 4:07:00 PM 120 mmHg 82 mmHg [...] Comments Housing Lives in a house in [place], [place] lives alone 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 Tobacco Use Alcohol Marijuana 1-2 times per week Did not [...] Returned 11/21/2014 12:00 AM MICROALBUMIN QUANTITATIVE Returned Results Summary Data and Description Results 08/10/2013 4:15 PM GLUCOSE 306.0 mg/dLSODIUM 138.0 mmol/LPOTASSIUM 4.40 mmol/ LCHLORIDE 101.0 mmol/LCO2 26.0 mmol/LBUN 13.0 mg/dLCREATININE 0.80 mg/dLSGOT/ AST 17.0 IU/LSGPT/ALT 27.0 IU/LALK PHOS 115.0 IU/LTOTAL PROTEIN 7.10 g/ dLALBUMIN 4.70 g/dLTOTAL BILI 0.40 mg/dLCALCIUM 10.40 mg/dLeGFR >60 mL/min/1.73 m2 10/06/2013 1:38 PM TSH 1.740 uIU/mLHGB A1C 11.50 % 01/10/2014 8:08 AM WBC 5.9 RBC 4.61 [...] BILI 0.50 mg/dLCALCIUM 9.20 mg/dLeGFR >60 mL/min/1.73 [id number] 64.0 mg/dLCHOLESTEROL 102.0 mg/dLHDL 48.0 mg/dLLDL (CALC) 41.0 mg/dLHGB A1C 6.50 %CREAT UR 101.90 mg/dLMICROALBUMIN UR 13.0 ug/mLALB:CREAT RATIO 13 05/04/2014 3:02 PM HGB A1C 7.40 %GLUCOSE 158.0 mg/dLSODIUM 141.0 mmol/ LPOTASSIUM 4.30 mmol/LCHLORIDE 107.0 mmol/LCO2 23.0 mmol/LBUN 12.0 [...] #EOS 0.07 #BASO 0.04 HGB A1C 8.60 % History Of Immunizations Not available. History of Past Illness Name Date of Onset Comments Back pain Leg Pain ankle pain Foot pain elbow pain hip pain Coccyx Pain Irritable bowel syndrome Neck pain Headache Diverticulitis of colon hernia Fibrocystic Disease Of Breast 2008 arthritis [...] Neuropathy, bilateral feet Mar 07 2015 4:13PM Payers Insurance Name Company Name Plan Name Plan Number Policy Number Policy Group Number Start Date Medicare Part A Medicare Part A [id number] Wednesday, 2008 [place] [employer] Prog - RHC [place] [employer] - RHC [id number] Saturday, 2013 [facility] - RHC - [facility] [id number] Friday, 2012 Medicare Part B Medicare [facility] [id number] Wednesday, 2008 [place] Medical Assistance Program [place] Medical [place] Prog [id number] N/A History of Encounters Visit Date Visit Type Provider 03/07/2015 Office visit Sri Guevara MD 01/19/2015 Office visit Sri Guevara MD 11/21/2014 Office visit Sri Guevara MD 09/28/2014 Office visit Sri Guevara MD 08/22/2014 Office visit Gretta Paz MOCK UP MAKER 05/04/2014 Office visit Anastacia Lee MOCK UP MAKER 03/16/2014 Office visit Gretta Paz MOCK UP MAKER 01/18/2014 Office visit Sri Guevara MD 12/30/2013 Office visit Anastacia Lee MOCK UP MAKER 11/15/2013 Voided Luiz Goldberg MD 11/10/2013 Office visit Anastacia Lee MOCK UP MAKER 10/20/2013 Office visit Anastacia Lee MOCK UP MAKER 09/09/2013 Office visit Sri Guevara MD 08/10/2013 Office visit Sri Guevara MD 08/01/2013 Office visit Anastacia Lee MOCK UP MAKER 07/20/2013 Office visit Anastacia Lee MOCK UP MAKER 07/15/2013 Office visit Anastacia Lee MOCK UP MAKER 07/09/2010 Office visit Laura Sharp MD
--- OUTSIDE RECORDS SUMMARY | 2018-01-12 18:11 | XMS REPORT ---
Author Author Anastacia Lee Organization [facility] Address [address] [place], [place] [address] Care Team Providers Care Roof Designer Name Role Phone Anastacia Lee PCP Unavailable [...] AM MICROALBUMIN UR RANDOM 02/03/2017 12:00 AM TSH 03/31/2017 12:00 AM ringing in ears, hoarseness Medications Active Name Start Date Estimated Completion Date SIG Comments Lortab 7.5-500 mg oral tablet take 1 tablet by oral route every 6 hours as needed for pain Lantus Solostar 100 unit/mL (3 mL) subcutaneous insulin pen inject by subcutaneous route as per insulin protocol BD Ultra-Fine Izzy Pen [place] 32 gauge x 5/32" miscellaneous needle 2013 [...] AND EVENING MEAL BD Ultra-Fine Izzy Pen [place] 32 gauge x 5/32" miscellaneous needle 2013 USE DIRECTED insulin syringe-needle U-100 0.3 mL 30 miscellaneous syringe 09/20/2014 USE DIRECTED insulin syringe-needle U-100 0.3 mL 30 miscellaneous syringe 10/15/2014 USE DIRECTED BD Ultra-Fine Izzy Pen [place] 32 gauge x 5/32" miscellaneous needle 10/30/2014 [...] UNITS DAILY DIRECTED BD Ultra-Fine Izzy Pen [place] 32 gauge x 5/32" miscellaneous needle 2014 [...] FOR 30 DAYS BD Ultra-Fine Izzy Pen [place] 32 gauge x 5/32" miscellaneous needle 2015 [...] HOURS NEEDED FOR PAIN FOR 30 DAYS [employer]Alert[employer] Ultra Test miscellaneous strip 12/11/2016 12/06/2017 Test 5 times daily. DX: E10.65 VGO 20 miscellaneous device 12/12/2016 04/11/2017 use as directed for 30 days Lantus Solostar 100 unit/mL (3 mL) subcutaneous insulin pen 12/19/2016 INJECT 10 UNITS IN THE EVENING AND 28 UNITS IN THE MORNING BD Ultra-Fine Izzy Pen [place] 32 gauge x 5/32" miscellaneous needle 2016 USE DIRECTED Novolog 100 unit/mL subcutaneous solution 02/05/2017 08/04/2017 inject up to 8 units sub-q TID loratadine 10 mg oral tablet 03/02/2017 take 1 tablet (10 mg) by oral route once daily doxazosin 4 mg oral tablet 03/03/2017 02/26/2018 TAKE 1 TABLET (4 MG) BY ORAL ROUTE ONCE DAILY FOR 30 DAYS for 90 days Name Start Date Expiration [...] route every 12 hours for 7 days Omnipod 1 Insulin Management System 12/12/2016 03/21/2017 Daily use alprazolam 0.5 mg oral tablet 12/29/2016 01/28/2017 [...] HC BMI BSA BMI Percentile O2 Sat(%) 03/31/2017 11:29:00 AM 134 mmHg 72 mmHg 86 bpm 18 rpm 97.9 F 160.375 lbs 68 in 24.38 kg/m2 1.87 m2 96 % 03/02/2017 11:26:00 AM 122 mmHg 76 mmHg 78 bpm 18 rpm 97.5 F 164 lbs 68 in 24.9359 kg/m 1.8892 m 96 % 02/03/2017 11:33:00 AM 150 mmHg [...] Comments Housing Lives in a house in [place], [place] lives alone 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 Tobacco Use Alcohol Current - status unknown States she stopped drinking one year ago d/ t diabetes Marijuana 1-2 times per week Did not serve in [employer] Tobacco Current every day smoker History of [...] AM GLYCOSYLATED HEMOGLOBIN TEST Reviewed Results Summary Date and Description Results 08/10/2013 4:15 PM GLUCOSE [...] R>L Jul 09 2010 9:31AM Muscle Spasm moilna parspinal muscles and gluteal Jul 09 2010 [...] tube disorder, left Mar 02 2017 11:28AM Hoarseness of voice Mar 31 2017 11:31AM Ringing in ears, left Mar 31 2017 11:31AM Payers Insurance Name Company Name Plan Name Plan Number Policy Number Policy Group Number Start Date Medicare RHC Medicare RHC [id number] N/A [place] [employer] Pro - [facility] Motor Inspection Mechanic Pro - [facility] [id number] Saturday, 2013 Medicare Part A Medicare - Lab/Xray [id number] Wednesday, March 26, 2008 Medicare Part B Medicare Of [place] [id number] Wednesday, March 26, 2008 [place] Medical Assistance Program [place] Medical [place] Prog [id number] N/A Medicare Part A Medicare Part A [id number] Wednesday, March 26, 2008 [facility] - [facility] - [facility] Comm [id number] Friday, October 26, 2012 History of Encounters Visit Date Visit Type Provider 03/31/2017 Office visit Anastacia Lee EQUIPMENT WORKER 03/02/2017 Office visit Anastacia Lee EQUIPMENT WORKER 02/03/2017 Office visit Sri Guevara MD 12/11/2016 Office visit Sri Guevara MD 10/07/2016 Office visit Mahin Malik EQUIPMENT WORKER 08/06/2016 Office visit Sri Guevara MD 06/25/2016 Office visit Sri Guevara MD 03/18/2016 Office visit Sri Guevara MD 01/30/2016 Office visit 01/30/2016 Office visit Reza Guadarrama DO 01/01/[address] Dianna Xiong DO 10/05/2015 Office visit Anastacia Lee EQUIPMENT WORKER 07/09/2015 Office visit Sri Guevara MD 03/07/2015 Office visit Sri Guevara MD 01/19/2015 Office visit Sri Guevara MD 11/21/2014 Office visit Sri Guevara MD 09/28/2014 Office visit Sri Guevara MD 08/22/2014 Office visit Gretta Paz EQUIPMENT WORKER 05/04/2014 Office visit Anastacia Lee EQUIPMENT WORKER 03/16/2014 Office visit Gretta Paz EQUIPMENT WORKER 01/18/2014 Office visit Sri Guevara MD 12/30/2013 Office visit Anastacia Lee EQUIPMENT WORKER 11/15/2013 Voided Luiz Goldberg MD 11/10/2013 Office visit Anastacia Lee EQUIPMENT WORKER 10/20/2013 Office visit Anastacia Lee EQUIPMENT WORKER 09/09/2013 Office visit Sri Guevara MD 08/10/2013 Office visit Sri Guevara MD 08/01/2013 Office visit Anastacia Lee EQUIPMENT WORKER 07/20/2013 Office visit Anastacia Lee EQUIPMENT WORKER 07/15/2013 Office visit Anastacia Lee EQUIPMENT WORKER 07/09/2010 Office visit Laura Sharp MD
--- OUTSIDE RECORDS SUMMARY | 2018-01-12 18:12 | XMS REPORT ---
Author Reza Boateng [facility] Address [address] [place], [place] [id number] Care Team Providers Care Life Science Technician Name Role Phone Reza Guadarrama PCP Unavailable Allergies and Adverse Reactions Name Reaction Notes [...] per insulin protocol BD Ultra-Fine Izzy Pen [place] 32 gauge x 5/32" miscellaneous needle 2013 [...] AND EVENING MEAL BD Ultra-Fine Izzy Pen [place] 32 gauge x 5/32" miscellaneous needle 2013 USE DIRECTED insulin syringe-needle U-100 0.3 mL 30 miscellaneous syringe 09/20/2014 USE DIRECTED insulin syringe-needle U-100 0.3 mL 30 miscellaneous syringe 10/15/2014 USE DIRECTED BD Ultra-Fine Izzy Pen [place] 32 gauge x 5/32" miscellaneous needle 10/30/2014 [...] UNITS DAILY DIRECTED BD Ultra-Fine Izzy Pen [place] 32 gauge x 5/32" miscellaneous needle 2014 [...] HOURS NEEDED FOR PAIN FOR 30 DAYS Lantus Solostar 100 unit/mL (3 mL) subcutaneous insulin pen 01/01/20162015 INJECT 10 UNITS DAILY, MAY INCREASE BY 2 UNITS DAILY DIRECTED for 30 days lisinopril 2.5 mg oral tablet 01/01/2016 04/30/2016 take 1 tablet (2.5 mg) by oral route once daily for 30 days doxazosin 4 mg oral tablet 01/01/2016 12/26/2016 TAKE 1 TABLET (4 MG) BY ORAL ROUTE ONCE DAILY FOR 30 DAYS for 90 days Acid Control (ranitidine) 150 mg oral tablet 01/03/2016 02/02/2016 take 1 tablet (150 mg) by oral route once daily at bedtime for 30 days OneTouch Ultra Test miscellaneous strip 01/04/2016 12/29/2016 Patient to test 4 -5 times per day. Dx: Diabetes Mellitus 250.01 BD Ultra-Fine Izzy Pen [place] 32 gauge x 5/32" miscellaneous needle 2015 USE DIRECTED alprazolam 0.5 mg oral tablet 01/23/2016 02/22/2016 take 1 tablet by oral route 2 times a day as needed for 30 days magnesium 250 mg oral tablet take 2 tablets by oral route daily biotin 5 mg oral capsule take 1 capsule by oral route daily Name Start Date Expiration Date SIG [...] per day with food for 5 days Discontinued Name Start Date Discontinued Date [...] by oral route daily for 30 days Problem List Description Status [...] HC BMI BSA BMI Percentile O2 Sat(%) 01/30/2016 11:21:00 AM 132 mmHg 77 mmHg [...] Comments Housing Lives in a house in [place], [place] lives alone 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 Tobacco Use Alcohol Current - status unknown States she stopped drinking one year ago d/ t diabetes Marijuana 1-2 times per week Did not serve in [employer] Tobacco Current every day smoker History of Procedures Date Ordered Description Order Status 01/01/2016 12:00 AM GLYCOSYLATED HEMOGLOBIN TEST Returned 01/30/2016 12:00 AM UPPER GI ENDOSCOPY PERFORMED Reviewed 01/30/2016 12:00 AM Screening, Colonoscopy,Colorectal Reviewed 08/10/2013 12:00 AM COMPREHEN METABOLIC PANEL Reviewed [...] BILI 0.50 mg/dLCALCIUM 9.20 mg/dLeGFR >60 mL/min/1.73 [id number] 64.0 mg/dLCHOLESTEROL 102.0 mg/dLHDL 48.0 mg/dLLDL (CALC) [...] mg/ dLCALCIUM 9.30 mg/dLeGFR >60 mL/min/1.73 m2 07/09/2015 4:40 PM Estim. Avg Glu (eAG) 160 mg/dL 01/03/2016 11:50 AM Hemoglobin A1c 6.50 % History Of Immunizations Not available. History [...] for screening colonoscopy Jan 30 2016 11:34AM Payers Insurance Name Company Name Plan Name Plan Number Policy Number Policy Group Number Start Date Medicare Part A Medicare Part A [id number] Wednesday, 2008 [place] [facility] [place] [facility] Lab Technician Prog - [facility] [place] [facility] Lab Technician Prog - C [id number] Saturday, November 09, 2013 [facility] [id number] Friday, October 26, 2012 Medicare Part B Medicare [place] [id number] Wednesday, March 26, 2008 [place] Medical Assistance Program [place] Prog [id number] N/A History of Encounters Visit Date Visit Type Provider 01/30/2016 Office visit 01/30/2016 Office visit Reza Guadarrama DO 01/01/[address] Dianna Xiong DO 10/05/2015 Office visit Anastacia Lee DIE BAKER 07/09/2015 Office visit Sri Guevara MD 03/07/2015 Office visit Sri Guevara MD 01/19/2015 Office visit Sri Guevara MD 11/21/2014 Office visit Sir Guevara MD 09/28/2014 Office visit Sri Guevara MD 08/22/2014 Office visit Gretta Paz DIE BAKER 05/04/2014 Office visit Anastacia Lee DIE BAKER 03/16/2014 Office visit Gretta Paz DIE BAKER 01/18/2014 Office visit Sri Guevara MD 12/30/2013 Office visit Anastacia Lee DIE BAKER 11/15/2013 Voided Luiz Goldberg MD 11/10/2013 Office visit Anastacia Lee DIE BAKER 10/20/2013 Office visit Anastacia Lee DIE BAKER 09/09/2013 Office visit Sri Guevara MD 08/10/2013 Office visit Sri Guevara MD 08/01/2013 Office visit Anastacia Lee DIE BAKER 07/20/2013 Office visit Anastacia Lee DIE BAKER 07/15/2013 Office visit Anastacia Lee DIE BAKER 07/09/2010 Office visit Laura Sharp MD
--- OUTSIDE RECORDS SUMMARY | 2018-01-12 18:13 | XMS REPORT ---
Author Author Sri Guevara Organization [facility] Address [address] [place], [place] [id number] Care Team Providers Care Data Warehouse Consultant Name Role Phone Sri Guevara PCP Allergies [...] per insulin protocol BD Ultra-Fine Izzy Pen [place] 32 gauge x 5/32" miscellaneous needle 2013 [...] AND EVENING MEAL BD Ultra-Fine Izzy Pen [place] 32 gauge x 5/32" miscellaneous needle 2013 USE DIRECTED insulin syringe-needle U-100 0.3 mL 30 miscellaneous syringe 09/20/2014 USE DIRECTED insulin syringe-needle U-100 0.3 mL 30 miscellaneous syringe 10/15/2014 USE DIRECTED BD Ultra-Fine Izzy Pen [place] 32 gauge x 5/32" miscellaneous needle 10/30/2014 [...] UNITS DAILY DIRECTED BD Ultra-Fine Izzy Pen [place] 32 gauge x 5/32" miscellaneous needle 2014 [...] Diabetes Mellitus 250.01 BD Ultra-Fine Izzy Pen [place] 32 gauge x " miscellaneous needle 2015 USE DIRECTED magnesium 250 mg oral tablet take 2 tablets by oral route daily biotin 5 mg oral capsule take 1 capsule by oral route daily insulin syringe-needle U-100 0.3 mL 30 miscellaneous syringe 02/11/2016 USE DIRECTED Lantus Solostar 100 unit/mL (3 mL) subcutaneous insulin pen 03/18/20162015 INJECT 10 UNITS in the evening and 28 units in the morning Vitamin D3 1,000 unit oral tablet take 1 tablet by oral route every other day vitamin B complex oral capsule take 1 capsule by oral route every other day alprazolam 0.5 mg oral tablet 03/18/2016 04/17/2016 take 1 tablet by oral route 2 times a day as needed for 30 days Novolog 100 unit/mL subcutaneous solution 03/25/2016 USE TWICE DAILY PER SLIDING SCALE(UP TO 8 UNITS PER USE) Name Start Date Expiration Date SIG Comments [...] once daily at bedtime for 30 days Discontinued Name Start Date [...] HC BMI BSA BMI Percentile O2 Sat(%) 03/18/2016 11:10:00 AM 128 mmHg 76 mmHg [...] Comments Housing Lives in a house in [facility] lives alone Unemployed disabeled 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 [...] BILI 0.50 mg/dLCALCIUM 9.20 mg/dLeGFR >60 mL/min/1.73 [id number] 64.0 mg/dLCHOLESTEROL 102.0 mg/dLHDL 48.0 mg/dLLDL (CALC) [...] mg/dLeGFR >60 mL/min/1.73 m2 07/09/2015 4:40 PM Hemoglobin A1c 7.20 %Estim. Avg Glu (eAG) 160 mg/dL 01/03/2016 11:50 AM Hemoglobin A1c 6.50 % History Of Immunizations Not available. History of Past Illness Name Date of Onset Comments Back pain Leg Pain ankle pain Foot pain elbow pain hip pain Coccyx Pain Irritable bowel syndrome Neck pain Headache Diverticulitis Of Colon hernia Fibrocystic Disease Of Breast 2009 arthritis Diabetes Mellitus, Type I Neuropathy, bilateral [...] 11:22AM Tobacco dependence Mar 18 2016 11:22AM Payers Insurance Name Company Name Plan Name Plan Number Policy Number Policy Group Number Start Date Medicare Part A Medicare [facility] [id number] N/A [facility] [id number] Saturday, 2013 Medicare Part A Medicare - Lab/Xray [id number] Wednesday, March 26, 2008 Medicare Part B Medicare [place] [id number] Wednesday, March 26, 2008 [place] Medical Assistance [facility] Medical Assistance Prog [id number] N/A Medicare Part A Medicare Part A [id number] Wednesday, March 26, 2008 [facility] [id number] Friday, October 26, 2012 History of Encounters Visit Date Visit Type Provider 03/18/2016 Office visit Sri Guevara MD 01/30/2016 Office visit 01/30/2016 Office visit Reza Guadarrama DO 01/01/[address] Dianna Xiong DO 10/05/2015 Office visit Anastacia Lee COSTUME SEAMSTRESS 07/09/2015 Office visit Sri Guevara MD 03/07/2015 Office visit Sri Guevara MD 01/19/2015 Office visit Sri Guevara MD 11/21/2014 Office visit Sri Guevara MD 09/28/2014 Office visit Sri Guevara MD 08/22/2014 Office visit Gretta Paz COSTUME SEAMSTRESS 05/04/2014 Office visit Anastacia Lee COSTUME SEAMSTRESS 03/16/2014 Office visit Gretta Paz COSTUME SEAMSTRESS 01/18/2014 Office visit Sri Guevara MD 12/30/2013 Office visit Anastacia Lee COSTUME SEAMSTRESS 11/15/2013 Voided Luiz Goldberg MD 11/10/2013 Office visit Anastacia Lee COSTUME SEAMSTRESS 10/20/2013 Office visit Anastacia Lee COSTUME SEAMSTRESS 09/09/2013 Office visit Sri Guevara MD 08/10/2013 Office visit Sri Guevara MD 08/01/2013 Office visit Anastacia Lee COSTUME SEAMSTRESS 07/20/2013 Office visit Anastacia Lee COSTUME SEAMSTRESS 07/15/2013 Office visit Anastacia Lee COSTUME SEAMSTRESS 07/09/2010 Office visit Laura Sharp MD
--- OUTSIDE RECORDS SUMMARY | 2018-01-12 18:13 | XMS REPORT ---
Author Author Sri Guevara Organization [facility] Address [address] [place], [place] [address] Care Team Providers Care Reed Polisher Name Role Phone Sri Guevara PCP Allergies [...] per insulin protocol BD Ultra-Fine Izzy Pen [place] miscellaneous needle 32 x 5/32 " 05/08/2014 [...] AND EVENING MEAL BD Ultra-Fine Izzy Pen [place] miscellaneous needle 32 x 5/32 " 09/18/2014 USE DIRECTED insulin syringe-needle U-100 miscellaneous syringe 0.3 mL 30 09/20/2014 USE DIRECTED insulin syringe-needle U-100 miscellaneous syringe 0.3 mL 30 10/15/2014 USE DIRECTED BD Ultra-Fine Izzy Pen [place] miscellaneous needle 32 x 5/32 " 10/30/2014 USE DIRECTED insulin syringe-needle U-100 [...] a day as needed for 30 days OneTouch Ultra Test miscellaneous strip 03/20/2015 03/14/2016 Patient to test 4-5 times per day. Dx: Diabetes Mellitus 250.01 Name Start Date Expiration Date SIG Comments [...] Comments Housing Lives in a house in [place], [place] lives alone Unemployed disabeled High school [...] BILI 0.50 mg/dLCALCIUM 9.20 mg/dLeGFR >60 mL/min/1.73 [id number] 64.0 mg/dLCHOLESTEROL 102.0 mg/dLHDL 48.0 mg/dLLDL (CALC) [...] of colon hernia Fibrocystic Disease Of Breast 2009 arthritis [...] 4:13PM Diabetic neuropathy Mar 07 2015 4:13PM Payers Insurance Name Company Name Plan Name Plan Number Policy Number Policy Group Number Start Date Medicare Part A Medicare Part A [id number] Wednesday, 2008 [place] [employer] Consultant Prog - RHC [place] [employer] Consultant Prog - RHC [id number] Saturday, 2013 [facility] - [facility] Comm [id number] Friday, 2012 Medicare Part B Medicare [place] [id number] Wednesday, 2008 [place] Medical [place] Pro[place] [id number] N/A History of Encounters Visit Date Visit Type Provider 03/07/2015 Office visit Sri Guevara MD 01/19/2015 Office visit Sri Guevara MD 11/21/2014 Office visit Sri Guevara MD 09/28/2014 Office visit Sri Guevara MD 08/22/2014 Office visit Gretta Paz FUELS ENGINEER 05/04/2014 Office visit Anastacia Lee FUELS ENGINEER 03/16/2014 Office visit Gretta Paz FUELS ENGINEER 01/18/2014 Office visit Sri Guevara MD 12/30/2013 Office visit Anastacia Lee FUELS ENGINEER 11/15/2013 Voided Luiz Goldberg MD 11/10/2013 Office visit Anastacia Lee FUELS ENGINEER 10/20/2013 Office visit Anastacia Lee FUELS ENGINEER 09/09/2013 Office visit Sri Guevara MD 08/10/2013 Office visit Sri Guevara MD 08/01/2013 Office visit Anastacia Lee FUELS ENGINEER 07/20/2013 Office visit Anastacia Lee FUELS ENGINEER 07/15/2013 Office visit Anastacia Lee FUELS ENGINEER 07/09/2010 Office visit Laura Sharp MD
--- OUTSIDE RECORDS SUMMARY | 2018-01-12 18:15 | XMS REPORT ---
Author Author Sri Guevara Organization [facility] Address [address] [place], [place] [address] Care Team Providers Care Ropewalk Rope Maker Name Role Phone Sri Guevara PCP Sri Guevara PreferredProvider Allergies and Adverse Reactions Name Reaction Notes Tape op site covering Molds codeine sulfate lisinopril cough ranitidine HCl IBS symptoms Plan of Treatment Planned Activity Comments Planned Date Planned Time Plan/Goal Hemoglobin A1C 07/09/2015 12:00 AM Hemoglobin A1C 04/06/2016 12:00 AM CBC with Auto 12/12/2016 12:00 AM CMP (comprehensive metabolic panel) 12/12/2016 12:00 AM Hemoglobin A1C 12/12/2016 12:00 AM Lipid profile 12/12/2016 12:00 AM Microalbuminuria 12/12/2016 12:00 AM Medications Active Name Start Date Estimated Completion Date SIG Comments Lortab 7.5-500 mg oral tablet take 1 tablet by oral route every 6 hours as needed for pain Lantus Solostar 100 unit/mL (3 mL) subcutaneous insulin pen inject by subcutaneous route as per insulin protocol BD Ultra-Fine Izzy Pen [place] 32 gauge x 5/32" miscellaneous needle 2013 [...] AND EVENING MEAL BD Ultra-Fine Izzy Pen [place] 32 gauge x 5/32" miscellaneous needle 2013 USE DIRECTED insulin syringe-needle U-100 0.3 mL 30 miscellaneous syringe 09/20/2014 USE DIRECTED insulin syringe-needle U-100 0.3 mL 30 miscellaneous syringe 10/15/2014 USE DIRECTED BD Ultra-Fine Izzy Pen [place] 32 gauge x 5/32" miscellaneous needle 10/30/2014 [...] UNITS DAILY DIRECTED BD Ultra-Fine Izzy Pen [place] 32 gauge x 5/32" miscellaneous needle 2014 [...] DAILY FOR 30 DAYS for 90 days BD Ultra-Fine Izzy Pen [place] 32 gauge x " miscellaneous needle 2015 [...] TWICE DAILY(DISCARD OPEN VIAL AFTER 28 DAYS) ibuprofen 400 mg oral tablet 07/22/2016 TAKE [...] 30 DAYS alprazolam 0.5 mg oral tablet 11/12/2016 12/12/2016 take 1 tablet by oral route 2 times a day as needed for 30 days OneTouch Ultra Test miscellaneous strip 12/11/2016 12/06/2017 Test 5 times daily. 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 History of [...] type 1, uncontrolled Dec 12 2016 9:42AM Payers Insurance Name Company Name Plan Name Plan Number Policy Number Policy Group Number Start Date Medicare RHC Medicare RHC [id number] N/A [place] Dog Day Care Attendant Prog - RHC [place] [employer] Day Care Attendant Prog - RHC [id number] Saturday, 2013 Medicare Part A Medicare - Lab/Xray [id number] Wednesday, March 26, 2008 Medicare Part B Medicare Of [place] [id number] Wednesday, March 26, 2008 [place] Medical Assistance Program [place] Medical Assistance Prog [id number] N/A Medicare Part A Medicare Part A [id number] Wednesday, March 26, 2008 [facility] - RHC - [facility] Plan [facility] RHC Comm [id number] Friday, October 26, 2012 History of Encounters Visit Date Visit Type Provider 12/11/2016 Office visit Sri Guevara MD 10/07/2016 Office visit Mahin Malik APRN 08/06/2016 Office visit Sri Guevara MD 06/25/2016 Office visit Sri Guevara MD 03/18/2016 Office visit Sri Guevara MD 01/30/2016 Office visit 01/30/2016 Office visit Reza Guadarrama DO 01/01/[address] Dianna Xiong DO 10/05/2015 Office visit Anastacia Lee MARKETING DATABASE CONSULTANT 07/09/2015 Office visit Sri Guevara MD 03/07/2015 Office visit Sri Guevara MD 01/19/2015 Office visit Sri Guevara MD 11/21/2014 Office visit Sri Guevara MD 09/28/2014 Office visit Sri Guevara MD 08/22/2014 Office visit Gretta Paz MARKETING DATABASE CONSULTANT 05/04/2014 Office visit Anastacia Lee MARKETING DATABASE CONSULTANT 03/16/2014 Office visit Gretta Paz MARKETING DATABASE CONSULTANT 01/18/2014 Office visit Sri Guevara MD 12/30/2013 Office visit Anastacia Lee MARKETING DATABASE CONSULTANT 11/15/2013 Voided Luiz Goldberg MD 11/10/2013 Office visit Anastacia Lee MARKETING DATABASE CONSULTANT 10/20/2013 Office visit Anastacia Lee MARKETING DATABASE CONSULTANT 09/09/2013 Office visit Sri Guevara MD 08/10/2013 Office visit Sri Guevara MD 08/01/2013 Office visit Anastacia Lee MARKETING DATABASE CONSULTANT 07/20/2013 Office visit Anastacia Lee MARKETING DATABASE CONSULTANT 07/15/2013 Office visit Anastacia Lee MARKETING DATABASE CONSULTANT 07/09/2010 Office visit Laura Sharp MD
--- OUTSIDE RECORDS SUMMARY | 2018-01-12 18:16 | XMS REPORT ---
Author Author Anastacia Lee Organization [facility] Address [address] [place], [place] [address] Care Team Providers Care Admitted Attorneys Name Role Phone Anastacia Lee PCP Unavailable [...] AM MICROALBUMIN UR RANDOM 02/03/2017 12:00 AM ringing in ears, hoarseness Medications Active Name Start Date Estimated Completion Date SIG Comments Lortab 7.5-500 mg oral tablet take 1 tablet by oral route every 6 hours as needed for pain Lantus Solostar 100 unit/mL (3 mL) subcutaneous insulin pen inject by subcutaneous route as per insulin protocol BD Ultra-Fine Izzy Pen [place] 32 gauge x 5/32" miscellaneous needle 2013 [...] AND EVENING MEAL BD Ultra-Fine Izzy Pen [place] 32 gauge x 5/32" miscellaneous needle 2013 USE DIRECTED insulin syringe-needle U-100 0.3 mL 30 miscellaneous syringe 09/20/2014 USE DIRECTED insulin syringe-needle U-100 0.3 mL 30 miscellaneous syringe 10/15/2014 USE DIRECTED BD Ultra-Fine Izzy Pen [place] 32 gauge x 5/32" miscellaneous needle 10/30/2014 [...] UNITS DAILY DIRECTED BD Ultra-Fine Izzy Pen [place] 32 gauge x 5/32" miscellaneous needle 2014 [...] FOR 30 DAYS BD Ultra-Fine Izzy Pen [place] 32 gauge x 5/32" miscellaneous needle 2015 [...] IN THE MORNING BD Ultra-Fine Izzy Pen [place] 32 gauge x 5/32" miscellaneous needle 2016 [...] Comments Housing Lives in a house in [place], [place] lives alone 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 History of [...] Number Policy Group Number Start Date Medicare [facility] Medicare [facility] [id number] N/A [place] Podiatry Professor Prog - [facility] Podiatry Professor Prog - [facility] [id number] Saturday, 2013 Medicare Part A Medicare - Lab/Xray [id number] Wednesday, March 26, 2008 Medicare Part B Medicare Of [place] [id number] Wednesday, March 26, 2008 [place] Medical Assistance Program [place] Medical [place] Prog [id number] N/A Medicare Part A Medicare Part A [id number] Wednesday, March 26, 2008 [facility] - [facility] - [facility] Comm [id number] Friday, October 26, 2012 History of Encounters Visit Date Visit Type Provider 03/31/2017 Office visit Anastacia Lee PRE OWNED SALES MANAGER 03/02/2017 Office visit Anastacia Lee PRE OWNED SALES MANAGER 02/03/2017 Office visit Sri Guevara MD 12/11/2016 Office visit Sri Guevara MD 10/07/2016 Office visit Mahin Malik PRE OWNED SALES MANAGER 08/06/2016 Office visit Sri Guevara MD 06/25/2016 Office visit Sri Guevara MD 03/18/2016 Office visit Sri Guevara MD 01/30/2016 Office visit 01/30/2016 Office visit Reza Guadarrama DO 01/01/[address] Dianna Xiong DO 10/05/2015 Office visit Anastacia Lee PRE OWNED SALES MANAGER 07/09/2015 Office visit Sri Guevara MD 03/07/2015 Office visit Sri Guevara MD 01/19/2015 Office visit Sri Guevara MD 11/21/2014 Office visit Sri Guevara MD 09/28/2014 Office visit Sri Guevara MD 08/22/2014 Office visit Gretta Paz PRE OWNED SALES MANAGER 05/04/2014 Office visit Anastacia Lee PRE OWNED SALES MANAGER 03/16/2014 Office visit Gretta Paz PRE OWNED SALES MANAGER 01/18/2014 Office visit Sri Guevara MD 12/30/2013 Office visit Anastacia Lee PRE OWNED SALES MANAGER 11/15/2013 Voided Luiz Goldberg MD 11/10/2013 Office visit Anastacia Lee PRE OWNED SALES MANAGER 10/20/2013 Office visit Anastacia Lee PRE OWNED SALES MANAGER 09/09/2013 Office visit Sri Guevara MD 08/10/2013 Office visit Sri Guevara MD 08/01/2013 Office visit Anastacia Lee PRE OWNED SALES MANAGER 07/20/2013 Office visit Anastacia Lee PRE OWNED SALES MANAGER 07/15/2013 Office visit Anastacia Lee PRE OWNED SALES MANAGER 07/09/2010 Office visit Laura Sharp MD
--- OUTSIDE RECORDS SUMMARY | 2018-01-12 18:17 | XMS REPORT ---
Author Author Dianna Xiong [facility] Address [address] [place], [place] [id number] Care Team Providers Care Customer Sales Distributor Name Role Phone Dianna Xiong PCP Allergies and Adverse Reactions Name Reaction [...] per insulin protocol BD Ultra-Fine Izzy Pen [place] 32 gauge x 5/32" miscellaneous needle 2013 [...] AND EVENING MEAL BD Ultra-Fine Izzy Pen [place] 32 gauge x 5/32" miscellaneous needle 2013 USE DIRECTED insulin syringe-needle U-100 0.3 mL 30 miscellaneous syringe 09/20/2014 USE DIRECTED insulin syringe-needle U-100 0.3 mL 30 miscellaneous syringe 10/15/2014 USE DIRECTED BD Ultra-Fine Izzy Pen [place] 32 gauge x 5/32" miscellaneous needle 10/30/2014 [...] UNITS DAILY DIRECTED BD Ultra-Fine Izzy Pen [place] 32 gauge x 5/32" miscellaneous needle 2014 [...] HOURS NEEDED FOR PAIN FOR 30 DAYS Ativan 0.5 mg oral tablet 01/01/2016 01/31/2016 take 1 tablet by oral route daily for 30 days Lantus Solostar 100 unit/mL [...] Diabetes Mellitus 250.01 BD Ultra-Fine Izzy Pen [place] 32 gauge x 5/32" miscellaneous needle 2015 USE DIRECTED Name Start Date Expiration Date SIG Comments [...] (at bedtime) as needed for 30 days Problem List Description Status Onset Diabetes Mellitus, Type I Active arthritis Active Neuropathy, bilateral feet Active Gastroesophageal Reflux Active 11/10/2013 Hyperlipidemia, unspecified Active 11/10/2013 Hypertension Active 11/10/2013 Vital Signs Date Time BP-Sys(mm[Hg] BP-Klarissa(mm[Hg]) HR(bpm) RR(rpm) Temp WT HT HC BMI BSA BMI Percentile O2 Sat(%) 01/01/2016 11:33:00 AM 132 mmHg 78 mmHg [...] Comments Housing Lives in a house in [place], [place] lives alone 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 Tobacco Use Alcohol Current - status unknown Marijuana 1-2 times per week Did not serve in Tobacco Current every day smoker History of Procedures Date Ordered Description Order Status 01/01/2016 12:00 AM GLYCOSYLATED HEMOGLOBIN TEST Returned 08/10/2013 12:00 AM COMPREHEN METABOLIC PANEL [...] BILI 0.50 mg/dLCALCIUM 9.20 mg/dLeGFR >60 mL/min/1.73 [id number] 64.0 mg/dLCHOLESTEROL 102.0 mg/dLHDL 48.0 mg/dLLDL (CALC) [...] 11:46AM Tobacco abuse Jan 01 2016 11:46AM Payers Insurance Name Company Name Plan Name Plan Number Policy Number Policy Group Number Start Date Medicare Part A Medicare Part A [id number] Wednesday, 2008 [facility] Asst Prog - [facility] Asst Pro - [facility] [id number] Saturday, 2013 [facility] - [facility] - [facility] Comm [id number] Friday, 2012 Medicare Part B Medicare [place] [id number] Wednesday, [address] [place] [address] [facility] [id number] N/A History of Encounters Visit Date Visit Type Provider 01/01/[address] Dianna Xiong DO 10/05/2015 Office visit Anastacia Lee ASSOCIATE PROFESSOR OF ARCHAEOLOGY 07/09/2015 Office visit Sri Guevara MD 03/07/2015 Office visit Sri Guevara MD 01/19/2015 Office visit Sri Guevara MD 11/21/2014 Office visit Sri Guevara MD 09/28/2014 Office visit Sri Guevara MD 08/22/2014 Office visit Gretta Paz ASSOCIATE PROFESSOR OF ARCHAEOLOGY 05/04/2014 Office visit Anastacia Lee ASSOCIATE PROFESSOR OF ARCHAEOLOGY 03/16/2014 Office visit Gretta Paz ASSOCIATE PROFESSOR OF ARCHAEOLOGY 01/18/2014 Office visit Sri Guevara MD 12/30/2013 Office visit Anastacia Lee ASSOCIATE PROFESSOR OF ARCHAEOLOGY 11/15/2013 Voided Luiz Goldberg MD 11/10/2013 Office visit Anastacia Lee ASSOCIATE PROFESSOR OF ARCHAEOLOGY 10/20/2013 Office visit Anastacia Lee ASSOCIATE PROFESSOR OF ARCHAEOLOGY 09/09/2013 Office visit Sri Guevara MD 08/10/2013 Office visit Sri Guevara MD 08/01/2013 Office visit Anastacia Lee ASSOCIATE PROFESSOR OF ARCHAEOLOGY 07/20/2013 Office visit Anastacia Lee ASSOCIATE PROFESSOR OF ARCHAEOLOGY 07/15/2013 Office visit Anastacia Lee ASSOCIATE PROFESSOR OF ARCHAEOLOGY 07/09/2010 Office visit Laura Sharp MD
--- OUTSIDE RECORDS SUMMARY | 2018-01-12 18:17 | XMS REPORT ---
Author Author Anastacia Lee Organization [facility] Address [address] [place], [place] [id number] Care Team Providers Care Port Patrol Officer Name Role Phone Anastacia Lee PCP Unavailable Allergies and Adverse Reactions Name [...] per insulin protocol BD Ultra-Fine Izzy Pen [place] 32 gauge x 5/32" miscellaneous needle 2013 [...] AND EVENING MEAL BD Ultra-Fine Izzy Pen [place] 32 gauge x 5/32" miscellaneous needle 2013 USE DIRECTED insulin syringe-needle U-100 0.3 mL 30 miscellaneous syringe 09/20/2014 USE DIRECTED insulin syringe-needle U-100 0.3 mL 30 miscellaneous syringe 10/15/2014 USE DIRECTED BD Ultra-Fine Izzy Pen [place] 32 gauge x 5/32" miscellaneous needle 10/30/2014 [...] UNITS DAILY DIRECTED BD Ultra-Fine Izzy Pen [place] 32 gauge x 5/32" miscellaneous needle 2014 USE DIRECTED doxazosin 4 mg oral tablet 07/09/2015 07/03/2016 TAKE 1 TABLET (4 MG) BY ORAL ROUTE ONCE DAILY FOR 30 DAYS for 90 days pantoprazole 40 mg oral tablet,delayed release (/EC) 07/09/2015 12/30/2016 TAKE ONE TABLET BY MOUTH DAILY for 90 days Lantus Solostar 100 unit/mL (3 mL) subcutaneous insulin pen 07/26/2015 INJECT 10 UNITS DAILY, MAY INCREASE BY 2 UNITS DAILY DIRECTED insulin syringe-needle U-100 0.3 mL 30 miscellaneous syringe 07/26/2015 USE DIRECTED insulin syringe-needle U-100 0.3 mL 30 miscellaneous syringe 08/23/2015 USE DIRECTED alprazolam 0.5 mg oral tablet 10/05/2015 01/03/2016 take 1 tablet by oral route once a day (at bedtime) as needed for 30 days Name Start [...] HC BMI BSA BMI Percentile O2 Sat(%) 10/05/2015 9:16:00 AM 148 mmHg 66 mmHg [...] Comments Housing Lives in a house in [place], [place] lives alone Unemployed disabeled High school [...] BILI 0.50 mg/dLCALCIUM 9.20 mg/dLeGFR >60 mL/min/1.73 [id number] 64.0 mg/dLCHOLESTEROL 102.0 mg/dLHDL 48.0 mg/dLLDL (CALC) [...] PM Estim. Avg Glu (eAG) 160 mg/dL History Of Immunizations Not available. History [...] 2015 3:48PM Anxiety Oct 05 2015 9:18AM Payers Insurance Name Company Name Plan Name Plan Number Policy Number Policy Group Number Start Date Medicare Part A Medicare Part A [id number] Wednesday, 2008 [place] Value Engineer Prog - [place] Value [place] Prog - RHC [id number] Saturday, 2013 [facility] - RHC - [facility] RHC Comm [id number] Friday, 2012 Medicare Part B Medicare [facility] [id number] Wednesday, 2008 [place] Medical Assistance Program [place] Medical Assistance Prog [id number] N/A History of Encounters Visit Date Visit Type Provider 10/05/2015 Office visit Anastacia Lee TEST TECHNICIAN 07/09/2015 Office visit Sri Guevara MD 03/07/2015 Office visit Sri Guevara MD 01/19/2015 Office visit Sri Guevara MD 11/21/2014 Office visit Sri Guevara MD 09/28/2014 Office visit Sri Guevara MD 08/22/2014 Office visit Gretta Paz TEST TECHNICIAN 05/04/2014 Office visit Anastacia Lee TEST TECHNICIAN 03/16/2014 Office visit Gretta Paz TEST TECHNICIAN 01/18/2014 Office visit Sri Guevara MD 12/30/2013 Office visit Anastacia Lee TEST TECHNICIAN 11/15/2013 Voided Luiz Goldberg MD 11/10/2013 Office visit Anastacia Lee TEST TECHNICIAN 10/20/2013 Office visit Anastacia Lee TEST TECHNICIAN 09/09/2013 Office visit Sri Guevara MD 08/10/2013 Office visit Sri Guevara MD 08/01/2013 Office visit Anastacia Lee TEST TECHNICIAN 07/20/2013 Office visit Anastacia Lee TEST TECHNICIAN 07/15/2013 Office visit Anastacia Lee TEST TECHNICIAN 07/09/2010 Office visit Laura Sharp MD
--- OUTSIDE RECORDS SUMMARY | 2018-01-12 18:19 | XMS REPORT ---
Author Author Sri Guevara Organization [facility] Address [address] [place], [place] [id number] Care Team Providers Care Cosmetology Teacher Name Role Phone Sri Guevara PCP Sri [...] AM Hemoglobin A1c measurement 12/12/2016 12:00 AM Medications Active Name Start Date Estimated Completion Date SIG Comments Lortab 7.5-500 mg oral tablet take 1 tablet by oral route every 6 hours as needed for pain Lantus Solostar 100 unit/mL (3 mL) subcutaneous insulin pen inject by subcutaneous route as per insulin protocol BD Ultra-Fine Izzy Pen [place] 32 gauge x 5/32" miscellaneous needle 2013 [...] AND EVENING MEAL BD Ultra-Fine Izzy Pen [place] 32 gauge x 5/32" miscellaneous needle 2013 USE DIRECTED insulin syringe-needle U-100 0.3 mL 30 miscellaneous syringe 09/20/2014 USE DIRECTED insulin syringe-needle U-100 0.3 mL 30 miscellaneous syringe 10/15/2014 USE DIRECTED BD Ultra-Fine Izzy Pen [place] 32 gauge x 5/32" miscellaneous needle 10/30/2014 [...] UNITS DAILY DIRECTED BD Ultra-Fine Izzy Pen [place] 32 gauge x 5/32" miscellaneous needle 2014 [...] FOR 30 DAYS BD Ultra-Fine Izzy Pen [place] 32 gauge x " miscellaneous needle 2015 [...] IN THE MORNING BD Ultra-Fine Izzy Pen [place] 32 gauge x 5/32" miscellaneous needle 2016 USE DIRECTED alprazolam 0.5 mg oral tablet 12/29/2016 01/28/2017 take 1 tablet by oral route 2 times a day as needed for 30 days Novolog 100 unit/mL subcutaneous solution 01/06/2017 02/05/2017 [...] Housing Lives in a house in [place] [facility] lives alone Unemployed disabeled 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 [...] type 1, uncontrolled Dec 11 2016 3:32PM Payers Insurance Name Company Name Plan Name Plan Number Policy Number Policy Group Number Start Date Medicare RHC Medicare RHC [id number] N/A [place] Motorcycle Service Technician Prog - RHC [place] [employer] Technician Prog - RHC [id number] Saturday, 2013 Medicare Part A Medicare - Lab/Xray [id number] Wednesday, March 26, 2008 Medicare Part B Medicare [place] [id number] Wednesday, March 26, 2008 [place] Medical Assistance Program [place] Medical Assistance Prog [id number] N/A Medicare Part A Medicare Part A [id number] Wednesday, March 26, 2008 [facility] - [facility] - [facility] RHC Comm [id number] Friday, October 26, 2012 History of Encounters Visit Date Visit Type Provider 12/11/2016 Office visit Sri Guevara MD 10/07/2016 Office visit Mahin Malik APRN 08/06/2016 Office visit Sri Guevara MD 06/25/2016 Office visit Sri Guevara MD 03/18/2016 Office visit Sri Guevara MD 01/30/2016 Office visit 01/30/2016 Office visit Reza Guadarrama DO 01/01/[address] Dianna Xiong DO 10/05/2015 Office visit Anastacia Lee SHIFT NURSE MANAGER 07/09/2015 Office visit Sri Guevara MD 03/07/2015 Office visit Sri Guevara MD 01/19/2015 Office visit Sri Guevara MD 11/21/2014 Office visit Sri Guevara MD 09/28/2014 Office visit Sri Guevara MD 08/22/2014 Office visit Gretta Paz SHIFT NURSE MANAGER 05/04/2014 Office visit Anastacia Lee SHIFT NURSE MANAGER 03/16/2014 Office visit Gretta Paz SHIFT NURSE MANAGER 01/18/2014 Office visit Sri Guevara MD 12/30/2013 Office visit Anastacia Lee SHIFT NURSE MANAGER 11/15/2013 Voided Luiz Goldberg MD 11/10/2013 Office visit Anastacia Lee SHIFT NURSE MANAGER 10/20/2013 Office visit Anastacia Lee SHIFT NURSE MANAGER 09/09/2013 Office visit Sri Guevara MD 08/10/2013 Office visit Sri Guevara MD 08/01/2013 Office visit Anastacia Lee APRN 07/20/2013 Office visit Anatsacia Lee APRN 07/15/2013 Office visit Anastacia Lee APRN 07/09/2010 Office visit Laura Sharp MD
--- OUTSIDE RECORDS SUMMARY | 2018-01-12 18:20 | XMS REPORT ---
Author Author Anastacia Lee Organization [facility] Address [address] [place], [place] [id number] Care Team Providers Care Concrete Form Setter Name Role Phone Anastacia Lee PCP Unavailable [...] AM MICROALBUMIN UR RANDOM 02/03/2017 12:00 AM ELBOW;2 VIEWS 09/04/2017 12:00 AM ringing in ears, hoarseness Pt has appt on 04/16/17 @0945 [place] Medications Active Name Start Date Estimated Completion Date SIG Comments Lortab 7.5-500 mg oral tablet take 1 tablet by oral route every 6 hours as needed for pain Lantus Solostar 100 unit/mL (3 mL) subcutaneous insulin pen inject by subcutaneous route as per insulin protocol BD Ultra-Fine Izzy Pen [place] 32 gauge x 5/32" miscellaneous needle 2013 [...] AND EVENING MEAL BD Ultra-Fine Izzy Pen [place] 32 gauge x 5/32" miscellaneous needle 2013 USE DIRECTED insulin syringe-needle U-100 0.3 mL 30 miscellaneous syringe 09/20/2014 USE DIRECTED insulin syringe-needle U-100 0.3 mL 30 miscellaneous syringe 10/15/2014 USE DIRECTED BD Ultra-Fine Izzy Pen [place] 32 gauge x 5/32" miscellaneous needle 10/30/2014 [...] UNITS DAILY DIRECTED BD Ultra-Fine Izzy Pen [place] 32 gauge x 5/32" miscellaneous needle 2014 [...] HOURS NEEDED FOR PAIN FOR 30 DAYS magnesium 250 mg oral tablet take 2 [...] 12/06/2017 Test 5 times daily. DX: E10.65 Lantus Solostar 100 unit/mL (3 mL) subcutaneous insulin pen 12/19/2016 INJECT 10 UNITS IN THE EVENING AND 28 UNITS IN THE MORNING doxazosin 4 mg oral tablet 03/03/2017 02/26/2018 TAKE 1 TABLET (4 MG) BY ORAL ROUTE ONCE DAILY FOR 30 DAYS for 90 days triamcinolone acetonide 0.1 % topical cream 05/18/2017 apply a thin layer to the affected area(s) by topical route 3 times per day BD Ultra-Fine Izzy Pen [place] 32 gauge x " miscellaneous needle 07/01/2017 USE DIRECTED Novolog 100 unit/mL subcutaneous solution 08/04/2017 07/30/2018 INJECT UP TO 8 UNITS SUB-Q TID Name Start Date Expiration Date SIG Comments [...] 04/11/2017 use as directed for 30 days alprazolam 0.5 mg oral tablet 08/04/2017 09/03/2017 take 1 tablet by oral route 2 times a day as needed for 30 days loratadine 10 mg oral tablet 08/14/2017 08/14/2017 TAKE 1 TABLET (10 MG) BY ORAL ROUTE ONCE DAILY Discontinued Name Start Date Discontinued Date SIG [...] Comments Housing Lives in a house in [place], [place] lives alone Unemployed disabeled High school [...] 03/31/2017 12:00 AM ASSAY THYROID STIM HORMONE Reviewed 08/10/2013 12:00 AM COMPREHEN METABOLIC PANEL [...] mg/dLHGB A1C 6.50 %Est Avg Glucose 139.9 mg/dL 05/04/2014 3:02 PM HGB A1C 7.40 %Est Avg Glucose 165.7 mg/dLGLUCOSE 158.0 mg/ dLSODIUM 141.0 mmol/LPOTASSIUM 4.30 mmol/LCHLORIDE 107.0 mmol/LCO2 23.0 mmol/ LBUN 12.0 mg/dLCREATININE 0.60 mg/dLSGOT/AST 16.0 IU/LSGPT/ALT 20.0 IU/LALK PHOS 83.0 IU/LTOTAL PROTEIN 6.90 g/dLALBUMIN 4.30 g/dLTOTAL BILI 0.40 mg/ dLCALCIUM 9.80 mg/dLAGE 53 GFR NonAA 104 GFR AA 126 eGFR 60 eGFR AA* 60 03/27/2015 12:05 PM WBC 7.2 RBC 4.50 [...] A1c 6.50 %Estim. Avg Glu (eAG) 140 03/31/2017 11:55 AM TSH 0.840 uIU/mL History [...] in ears, left Mar 31 2017 11:31AM Pain Sep 04 2017 10:45AM Swelling Sep 04 2017 10:45AM Payers Insurance Name Company Name Plan Name Plan Number Policy Number Policy Group Number Start Date Medicare RHC Medicare RHC [id number] N/A [place] Bingo Attendant Prog - RHC [place] [employer] Attendant Prog - RHC [id number] Saturday, 2013 Medicare Part A Medicare - Lab/Xray [id number] Wednesday, March 26, 2008 Medicare Part B Medicare Of [place] [id number] Wednesday, March 26, 2008 [place] Medical Assistance Program [place] Medical Assistance Prog [id number] N/A Medicare Part A Medicare Part A [id number] Wednesday, March 26, 2008 [facility] - RHC - [facility] RHC Comm [id number] Friday, October 26, 2012 History of Encounters Visit Date Visit Type Provider 03/31/2017 Office visit Anastacia Lee RADIO COMMUNICATION COORDINATOR 03/02/2017 Office visit Anastacia Lee RADIO COMMUNICATION COORDINATOR 02/03/2017 Office visit Sri Guevara MD 12/11/2016 Office visit Sri Guevara MD 10/07/2016 Office visit Mahin Malik RADIO COMMUNICATION COORDINATOR 08/06/2016 Office visit Sri Guevara MD 06/25/2016 Office visit Sri Guevara MD 03/18/2016 Office visit Sri Guevara MD 01/30/2016 Office visit 01/30/2016 Office visit Reza Guadarrama DO 01/01/[address] Dianna Xiong DO 10/05/2015 Office visit Anastacia Lee RADIO COMMUNICATION COORDINATOR 07/09/2015 Office visit Sri Guevara MD 03/07/2015 Office visit Sri Guevara MD 01/19/2015 Office visit Sri Guevara MD 11/21/2014 Office visit Sri Guevara MD 09/28/2014 Office visit Sri Guevara MD 08/22/2014 Office visit Gretta Paz RADIO COMMUNICATION COORDINATOR 05/04/2014 Office visit Anastacia Lee RADIO COMMUNICATION COORDINATOR 03/16/2014 Office visit Gretta Paz RADIO COMMUNICATION COORDINATOR 01/18/2014 Office visit rSi Guevara MD 12/30/2013 Office visit Anastacia Lee RADIO COMMUNICATION COORDINATOR 11/15/2013 Voided Luiz Goldberg MD 11/10/2013 Office visit Anastacia Lee RADIO COMMUNICATION COORDINATOR 10/20/2013 Office visit Anastacia Lee RADIO COMMUNICATION COORDINATOR 09/09/2013 Office visit Sri Guevara MD 08/10/2013 Office visit Sri Guevara MD 08/01/2013 Office visit Anastacia Lee APRN 07/20/2013 Office visit Anastacia Lee APRN 07/15/2013 Office visit Anastacia Lee APRN 07/09/2010 Office visit Laura Sharp MD
--- OUTSIDE RECORDS SUMMARY | 2018-01-12 18:22 | XMS REPORT ---
Author Author Sri Guevara Organization [facility] Address [address] [place], [place] [address] Care Team Providers Care Pigment Mixer Name Role Phone Sri Guevara PCP Sri Guevara PreferredProvider Allergies and Adverse Reactions Name Reaction Notes Tape op site covering Molds codeine sulfate lisinopril cough ranitidine HCl IBS symptoms metformin Plan of Treatment Planned Activity Comments Planned [...] 02/03/2017 12:00 AM ringing in ears, hoarseness Pt has appt on 04/16/17 @45 [place] Medications Active Name Start Date Estimated Completion Date SIG Comments Lortab 7.5-500 mg oral tablet take 1 tablet by oral route every 6 hours as needed for pain BD Ultra-Fine Izzy Pen [place] 32 gauge x 5/32" miscellaneous needle 2013 USE DIRECTED cyclobenzaprine oral gemfibrozil 600 mg oral tablet 08/22/2014 take 1 tablet (600 mg) by oral route 2 times per day 30 minutes before morning and evening meal Novolog 100 unit/mL subcutaneous solution 08/22/2014 injection by subcutaneous route with sliding scale TID with meals gemfibrozil 600 mg oral tablet 08/22/2014 TAKE 1 TABLET (600 MG) BY ORAL ROUTE 2 TIMES PER DAY 30 MINUTES BEFORE MORNING AND EVENING MEAL BD Ultra-Fine Izzy Pen [place] 32 gauge x 5/32" miscellaneous needle 2013 USE DIRECTED insulin syringe-needle U-100 0.3 mL 30 miscellaneous syringe 09/20/2014 USE DIRECTED insulin syringe-needle U-100 0.3 mL 30 miscellaneous syringe 10/15/2014 USE DIRECTED BD Ultra-Fine Izzy Pen [place] 32 gauge x 5/32" miscellaneous needle 10/30/2014 USE DIRECTED insulin syringe-needle U-100 0.3 mL 30 miscellaneous syringe 11/13/2014 USE DIRECTED insulin syringe-needle U-100 0.3 mL 30 miscellaneous syringe 01/03/2015 USE DIRECTED Zanaflex 4 mg oral capsule take 1 capsule by oral route 3 times a day as needed doxazosin 4 mg oral tablet 03/01/2015 TAKE 1 TABLET (4 MG) BY ORAL ROUTE ONCE DAILY FOR 30 DAYS Centrum Silver 0.4-300-250 mg-mcg-mcg oral tablet take 1 tablet by oral route daily doxazosin 4 mg oral tablet 03/29/2015 TAKE 1 TABLET (4 MG) BY ORAL ROUTE ONCE DAILY FOR 30 DAYS insulin syringe-needle U-100 0.3 mL 30 miscellaneous syringe 04/25/2015 USE DIRECTED insulin syringe-needle U-100 0.3 mL 30 miscellaneous syringe 04/26/2015 USE DIRECTED doxazosin 4 mg oral tablet 05/14/2015 TAKE 1 TABLET (4 MG) BY ORAL ROUTE ONCE DAILY FOR 30 DAYS BD Ultra-Fine Izzy Pen [place] 32 gauge x 5/32" miscellaneous needle 2014 USE DIRECTED insulin syringe-needle U-100 0.3 mL [...] 12/06/2017 Test 5 times daily. DX: E10.65 doxazosin 4 mg oral tablet 03/03/2017 02/26/2018 TAKE 1 TABLET (4 MG) BY ORAL ROUTE ONCE DAILY FOR 30 DAYS for 90 days triamcinolone acetonide 0.1 % topical cream 05/18/2017 apply a thin layer to the affected area(s) by topical route 3 times per day BD Ultra-Fine Izzy Pen [place] 32 gauge x 5/32" miscellaneous needle 07/01/2017 USE DIRECTED Novolog 100 unit/mL subcutaneous solution 08/04/2017 07/30/2018 INJECT UP TO 8 UNITS SUB-Q TID amoxicillin 500 mg oral capsule 09/08/2017 take 1 capsule (500 mg) by oral route every 12 hours for 10 days alprazolam 0.5 mg oral tablet 09/11/2017 10/11/2017 take 1 tablet by oral route 2 times a day as needed for 30 days Lantus Solostar 100 unit/mL (3 mL) subcutaneous insulin pen 10/02/2017 INJECT 10 UNITS IN THE EVENING AND 28 UNITS IN THE MORNING Name Start Date Expiration Date SIG Comments [...] route every 8 hours for 10 days Augmentin 875-125 mg oral tablet 10/07/2016 10/14/2016 take 1 tablet by oral route every 12 hours for 7 days Omnipod 1 Insulin Management System 12/12/2016 03/21/2017 Daily use VGO 20 miscellaneous device 12/12/2016 04/11/2017 use as directed for 30 days loratadine 10 mg oral [...] HC BMI BSA BMI Percentile O2 Sat(%) 09/08/2017 3:30:00 PM 128 mmHg 80 mmHg 81 bpm 18 rpm 97 F 163.375 lbs 68 in 24.84 kg/m2 1.89 m2 95 % 03/31/2017 11:29:00 AM 134 mmHg 72 mmHg 86 bpm 18 rpm 97.9 F 160.375 lbs 68 in 24.3847 kg/m 1.8682 m 96 % 03/02/2017 11:26:00 AM 122 mmHg [...] Comments Housing Lives in a house in [facility] lives alone 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 Tobacco Use Alcohol Current - status unknown States she stopped drinking one year ago d/ t diabetes Marijuana 1-2 times per week Did not serve in [employer] Tobacco Current every day smoker History of [...] 12:00 AM ASSAY THYROID STIM HORMONE Reviewed 09/04/2017 12:00 AM X-RAY EXAM OF ELBOW Returned 08/10/2013 12:00 AM COMPREHEN METABOLIC PANEL [...] 2017 10:45AM Swelling Sep 04 2017 10:45AM Tendonitis Sep 08 2017 3:33PM Gingivitis Sep 08 2017 3:33PM Payers Insurance Name Company Name Plan Name Plan Number Policy Number Policy Group Number Start Date Medicare RHC Medicare RHC [id number] N/A [place] Tobacco Curer Pro - [facility] Tobacco Curer Pro - [facility] [id number] Saturday, 2013 Medicare Part A Medicare - Lab/Xray [id number] Wednesday, March 26, 2008 Medicare Part B Medicare Of [place] [id number] Wednesday, March 26, 2008 [place] Medical Assistance Program [place] Medical [place] Prog [id number] N/A Medicare Part A Medicare Part A [id number] Wednesday, March 26, 2008 [facility] - [facility] - [facility] [place] [facility] Comm [id number] Friday, October 26, 2012 History of Encounters Visit Date Visit Type Provider 09/08/2017 Office visit Sri Guevara MD 03/31/2017 Office visit Anastacia Lee PIPING ENGINEER 03/02/2017 Office visit Anastacia Lee PIPING ENGINEER 02/03/2017 Office visit Sri Guevara MD 12/11/2016 Office visit Sri Guevara MD 10/07/2016 Office visit Mahin Malik PIPING ENGINEER 08/06/2016 Office visit Sri Guevara MD 06/25/2016 Office visit Sri Guevara MD 03/18/2016 Office visit Sri Guevara MD 01/30/2016 Office visit 01/30/2016 Office visit Reza Guadarrama DO 01/01/[address] Dianna Xiong DO 10/05/2015 Office visit Anastacia Lee PIPING ENGINEER 07/09/2015 Office visit Sri Guevara MD 03/07/2015 Office visit Sri Guevara MD 01/19/2015 Office visit Sri Guevara MD 11/21/2014 Office visit Sri Guevara MD 09/28/2014 Office visit Sri Guevara MD 08/22/2014 Office visit Gretta Paz PIPING ENGINEER 05/04/2014 Office visit Anastacia Lee PIPING ENGINEER 03/16/2014 Office visit Gretta Paz PIPING ENGINEER 01/18/2014 Office visit Sri Guevara MD 12/30/2013 Office visit Anastacia Lee PIPING ENGINEER 11/15/2013 Voided Luiz Goldberg MD 11/10/2013 Office visit Anastacia Lee PIPING ENGINEER 10/20/2013 Office visit Anastacia Lee PIPING ENGINEER 09/09/2013 Office visit Sri Guevara MD 08/10/2013 Office visit Sri Guevara MD 08/01/2013 Office visit Anastacia Lee PIPING ENGINEER 07/20/2013 Office visit Anastacia Lee PIPING ENGINEER 07/15/2013 Office visit Anastacia Lee PIPING ENGINEER 07/09/2010 Office visit Laura Sharp MD
--- OUTSIDE RECORDS SUMMARY | 2018-01-12 18:23 | XMS REPORT ---
Author Author Mahin Malik [facility] Address [address] [place], [place] [id number] Care Team Providers Care Spin Table Operator Name Role Phone Mahin Malik PCP YaronSri truong PreferredProvider Allergies and Adverse Reactions Name Reaction Notes Tape op site covering Molds codeine sulfate lisinopril cough ranitidine HCl IBS symptoms Plan of Treatment Planned Activity Comments Planned Date Planned Time Plan/Goal Hemoglobin A1C 07/09/2015 12:00 AM Hemoglobin A1C 04/06/2016 12:00 AM Medications Active Name Start Date Estimated Completion Date SIG Comments Lortab 7.5-500 mg oral tablet take 1 tablet by oral route every 6 hours as needed for pain Lantus Solostar 100 unit/mL (3 mL) subcutaneous insulin pen inject by subcutaneous route as per insulin protocol BD Ultra-Fine Izzy Pen [place] 32 gauge x 5/32" miscellaneous needle 2013 [...] AND EVENING MEAL BD Ultra-Fine Izzy Pen [place] 32 gauge x 5/32" miscellaneous needle 2013 USE DIRECTED insulin syringe-needle U-100 0.3 mL 30 miscellaneous syringe 09/20/2014 USE DIRECTED insulin syringe-needle U-100 0.3 mL 30 miscellaneous syringe 10/15/2014 USE DIRECTED BD Ultra-Fine Izzy Pen [place] 32 gauge x 5/32" miscellaneous needle 10/30/2014 [...] UNITS DAILY DIRECTED BD Ultra-Fine Izzy Pen [place] 32 gauge x 5/32" miscellaneous needle 2014 [...] Diabetes Mellitus 250.01 BD Ultra-Fine Izzy Pen [place] 32 gauge x " miscellaneous needle 2015 [...] mL 30 miscellaneous syringe 09/10/2016 USE DIRECTED alprazolam 0.5 mg oral tablet 09/30/2016 10/30/2016 take 1 tablet by oral route 2 times a day as needed for 30 days ProAir HFA 90 mcg/actuation inhalation HFA aerosol [...] HOURS NEEDED FOR PAIN FOR 30 DAYS Name Start Date Expiration Date SIG Comments [...] HC BMI BSA BMI Percentile O2 Sat(%) 10/07/2016 3:21:00 PM 142 mmHg 90 mmHg [...] Comments Housing Lives in a house in [facility], [place] lives alone Unemployed disabeled 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 [...] 2016 3:23PM Bronchitis Oct 07 2016 3:23PM Payers Insurance Name Company Name Plan Name Plan Number Policy Number Policy Group Number Start Date Medicare Part A Medicare RHC [id number] N/A [facility] Asst Prog - RHC [facility] Asst Prog - [facility] [id number] Saturday, 2013 Medicare Part A Medicare - Lab/Xray [id number] Wednesday, March 26, 2008 Medicare Part B Medicare [place] [id number] Wednesday, March 26, 2008 [place] Medical Assistance [facility] Medical Assistance Prog [id number] N/A Medicare Part A Medicare Part A [id number] Wednesday, March 26, 2008 [facility] Plan [facility] [id number] Friday, October 26, 2012 History of Encounters Visit Date Visit Type Provider 10/07/2016 Office visit Mahin Malik APRN 08/06/2016 Office visit Sri Guevara MD 06/25/2016 Office visit Sri Guevara MD 03/18/2016 Office visit Sri Guevara MD 01/30/2016 Office visit 01/30/2016 Office visit Reza Guadarrama DO 01/01/[address] Dianna Xiong DO 10/05/2015 Office visit Anastacia Lee REFRACTORY TILE HELPER 07/09/2015 Office visit Sri Guevara MD 03/07/2015 Office visit Sri Guevara MD 01/19/2015 Office visit Sri Guevara MD 11/21/2014 Office visit Sri Guevara MD 09/28/2014 Office visit Sri Guveara MD 08/22/2014 Office visit Gretta Paz APRN 05/04/2014 Office visit Anastacia Lee APRN 03/16/2014 Office visit Gretta Paz APRN 01/18/2014 Office visit Sri Guevara MD 12/30/2013 Office visit Anastacia Lee REFRACTORY TILE HELPER 11/15/2013 Voided Luiz Goldberg MD 11/10/2013 Office visit Anastacia Lee REFRACTORY TILE HELPER 10/20/2013 Office visit Anastacia Lee APRN 09/09/2013 Office visit Sri Guevara MD 08/10/2013 Office visit Sri Guevara MD 08/01/2013 Office visit Anastacia Lee REFRACTORY TILE HELPER 07/20/2013 Office visit Anastacia Lee APRN 07/15/2013 Office visit Anastacia Lee APRN 07/09/2010 Office visit Laura Sharp MD
--- OUTSIDE RECORDS SUMMARY | 2018-01-12 18:24 | XMS REPORT ---
Author Author Dianna Xiong [facility] Address [address] [place], [place] [id number] Care Team Providers Care Ladle Filler Name Role Phone Dianna Xiong PCP Allergies [...] per insulin protocol BD Ultra-Fine Izzy Pen [place] 32 gauge x 5/32" miscellaneous needle 2013 [...] AND EVENING MEAL BD Ultra-Fine Izzy Pen [place] 32 gauge x 5/32" miscellaneous needle 2013 USE DIRECTED insulin syringe-needle U-100 0.3 mL 30 miscellaneous syringe 09/20/2014 USE DIRECTED insulin syringe-needle U-100 0.3 mL 30 miscellaneous syringe 10/15/2014 USE DIRECTED BD Ultra-Fine Izzy Pen [place] 32 gauge x 5/32" miscellaneous needle 10/30/2014 [...] UNITS DAILY DIRECTED BD Ultra-Fine Izzy Pen [place] 32 gauge x 5/32" miscellaneous needle 2014 [...] Comments Housing Lives in a house in [place], [place] lives alone Unemployed disabeled 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 [...] BILI 0.50 mg/dLCALCIUM 9.20 mg/dLeGFR >60 mL/min/1.73 [id number] 64.0 mg/dLCHOLESTEROL 102.0 mg/dLHDL 48.0 mg/dLLDL (CALC) [...] Date Medicare Part A Medicare Part A [id number] Wednesday, 2008 [place] [employer] Prog - [place] [employer] Prog - RHC [id number] Saturday, 2013 [facility] Comm [id number] Friday, 2012 Medicare Part B Medicare [facility] [id number] Wednesday, 2008 [place] Medical [place] [id number] N/A History of Encounters Visit Date Visit Type Provider 01/01/[address] Dianna Xiong DO 10/05/2015 Office visit Anastacia Lee MAINFRAME DEVELOPER 07/09/2015 Office visit Sri Guevara MD 03/07/2015 Office visit Sri Guevara MD 01/19/2015 Office visit Sri Guevara MD 11/21/2014 Office visit Sri Guevara MD 09/28/2014 Office visit Sri Guevara MD 08/22/2014 Office visit Gretta Paz MAINFRAME DEVELOPER 05/04/2014 Office visit Anastacia Lee MAINFRAME DEVELOPER 03/16/2014 Office visit Gretta Paz MAINFRAME DEVELOPER 01/18/2014 Office visit Sri Guevara MD 12/30/2013 Office visit Anastacia Lee MAINFRAME DEVELOPER 11/15/2013 Voided Luiz Goldberg MD 11/10/2013 Office visit Anastacia Lee MAINFRAME DEVELOPER 10/20/2013 Office visit Anastacia Lee MAINFRAME DEVELOPER 09/09/2013 Office visit Sri Guevara MD 08/10/2013 Office visit Sri Guevara MD 08/01/2013 Office visit Anastacia Lee MAINFRAME DEVELOPER 07/20/2013 Office visit Anastacia Lee MAINFRAME DEVELOPER 07/15/2013 Office visit Anastacia Lee MAINFRAME DEVELOPER 07/09/2010 Office visit Laura Sharp MD
--- OUTSIDE RECORDS SUMMARY | 2018-01-12 18:26 | XMS REPORT ---
Author Author Anastacia Lee Organization [facility] Address [address] [place], [place] [id number] Care Team Providers Care Threat Analyst Name Role Phone Anastacia Lee PCP Unavailable [...] hoarseness Pt has appt on 04/16/17 @45 [place] Medications Active Name Start Date Estimated Completion Date SIG Comments Lortab 7.5-500 mg oral tablet take 1 tablet by oral route every 6 hours as needed for pain Lantus Solostar 100 unit/mL (3 mL) subcutaneous insulin pen inject by subcutaneous route as per insulin protocol BD Ultra-Fine Izzy Pen [place] 32 gauge x 5/32" miscellaneous needle 2013 [...] AND EVENING MEAL BD Ultra-Fine Izzy Pen [place] 32 gauge x 5/32" miscellaneous needle 2013 USE DIRECTED insulin syringe-needle U-100 0.3 mL 30 miscellaneous syringe 09/20/2014 USE DIRECTED insulin syringe-needle U-100 0.3 mL 30 miscellaneous syringe 10/15/2014 USE DIRECTED BD Ultra-Fine Izzy Pen [place] 32 gauge x 5/32" miscellaneous needle 10/30/2014 [...] UNITS DAILY DIRECTED BD Ultra-Fine Izzy Pen [place] 32 gauge x 5/32" miscellaneous needle 2014 [...] FOR 30 DAYS BD Ultra-Fine Izzy Pen [place] 32 gauge x 5/32" miscellaneous needle 2015 [...] HOURS NEEDED FOR PAIN FOR 30 DAYS [place]phis Vape Ultra Test miscellaneous strip 12/11/2016 12/06/2017 Test 5 times daily. 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 Tobacco Use Alcohol Current - status unknown States she stopped drinking one year ago d/ t diabetes Marijuana 1-2 times per week Did not serve in [employer] Tobacco Current every day smoker History of [...] Number Start Date Medicare RHC Medicare RHC [id number] N/A [place] [employer] Engineer Prog - [facility] Asst Pro - [facility] [id number] Saturday, 2013 Medicare Part A Medicare - Lab/Xray [id number] Wednesday, March 26, 2008 Medicare Part B Medicare Of [place] [id number] Wednesday, March 26, 2008 [place] Medical Assistance Program [place] Medical Assistance Prog [id number] N/A Medicare Part A Medicare Part A [id number] Wednesday, March 26, 2008 [facility] Comm [id number] Friday, October 26, 2012 History of Encounters Visit Date Visit Type Provider 03/31/2017 Office visit Anastacia Lee ROTARY PUMP OPERATOR 03/02/2017 Office visit Anastacia Lee ROTARY PUMP OPERATOR 02/03/2017 Office visit Sri Guevara MD 12/11/2016 Office visit Sri Guevara MD 10/07/2016 Office visit Mahin Malik APRN 08/06/2016 Office visit Sri Guevara MD 06/25/2016 Office visit Sri Guevara MD 03/18/2016 Office visit Sri Guevara MD 01/30/2016 Office visit 01/30/2016 Office visit Reza Guadarrama DO 01/01/[address] Dianna Xiong DO 10/05/2015 Office visit Anastacia Lee ROTARY PUMP OPERATOR 07/09/2015 Office visit Sri Guevara MD 03/07/2015 Office visit Sri Guevara MD 01/19/2015 Office visit Sri Guevara MD 11/21/2014 Office visit Sri Guevara MD 09/28/2014 Office visit Sri Guevara MD 08/22/2014 Office visit Gretta Paz ROTARY PUMP OPERATOR 05/04/2014 Office visit Anastacia Lee ROTARY PUMP OPERATOR 03/16/2014 Office visit Gretta Paz ROTARY PUMP OPERATOR 01/18/2014 Office visit Sri Guevara MD 12/30/2013 Office visit Anastacia Lee ROTARY PUMP OPERATOR 11/15/2013 Voided Luiz Goldberg MD 11/10/2013 Office visit Anastacia Lee ROTARY PUMP OPERATOR 10/20/2013 Office visit Anastacia Lee ROTARY PUMP OPERATOR 09/09/2013 Office visit Sri Guevara MD 08/10/2013 Office visit Sri Guevara MD 08/01/2013 Office visit Anastacia Lee ROTARY PUMP OPERATOR 07/20/2013 Office visit Anastacia Lee ROTARY PUMP OPERATOR 07/15/2013 Office visit Anastacia Lee ROTARY PUMP OPERATOR 07/09/2010 Office visit Laura Sharp MD
--- OUTSIDE RECORDS SUMMARY | 2018-01-12 18:27 | XMS REPORT ---
Author Author Sri Guevara Organization [facility] Address [address] [place], [place] [address] Care Team Providers Care Liquor Maker Name Role Phone Sri Guevara PCP Allergies and Adverse Reactions Name Reaction Notes Tape Molds codeine sulfate Plan of Treatment Not available. Medications Active Name Start Date Estimated Completion Date SIG Comments Lortab Oral Tablet 7.5-500 mg take 1 tablet by oral route every 6 hours as needed for pain Lantus Solostar Subcutaneous Insulin Pen 100 unit/mL (3 mL) inject by subcutaneous route as per insulin protocol Protonix oral tablet,delayed release (DR/EC) 40 mg 11/10/2013 take 1 tablet by mouth daily doxazosin oral tablet 4 mg 02/27/2014 02/22/2015 take 1 tablet (4 mg) by oral route once daily for 30 days BD Ultra-Fine Izzy Pen [place] miscellaneous needle 32 x 5/32 " 05/08/2014 [...] AND EVENING MEAL BD Ultra-Fine Izzy Pen [place] miscellaneous needle 32 x 5/32 " 09/18/2014 USE DIRECTED insulin syringe-needle U-100 miscellaneous syringe 0.3 mL 30 09/20/2014 USE DIRECTED insulin syringe-needle U-100 miscellaneous syringe 0.3 mL 30 10/15/2014 USE DIRECTED BD Ultra-Fine Izzy Pen [place] miscellaneous needle 32 x 5/32 " 10/30/2014 [...] 02/02/2015 TAKE ONE TABLET BY MOUTH DAILY Name Start Date Expiration Date SIG Comments Skelaxin Oral tablet 800 mg 09/09/2013 12/08/2013 take 1 tablet (800 mg) by oral route 3 times per day as needed for 30 days biotin Oral tablet 10 mg 09/12/2013 12/11/2013 take 1 tablet by oral route daily for 30 days ibuprofen oral tablet 400 mg 02/27/2014 08/26/2014 take 1 tablet (400 mg) by oral route every 6 hours as needed for pain for 30 days Novolog subcutaneous solution 100 unit/mL 06/12/2014 07/12/2014 BID sliding scale: >120-180 take 2 units, 180-240 take 4 units, 240-300 take 6 units, 300- 350 take 8 units. If >350 take 8 units and recheck alprazolam oral tablet 0.5 mg 09/28/2014 12/27/2014 take 1 tablet by oral route 2 times a day as needed for 30 days Soma oral tablet 250 mg 12/26/2014 01/02/2015 [...] once daily for 30 days Pt, quit Xanax oral tablet 0.5 mg 11/10/2013 01/31/2014 [...] 3 times per day for 30 days Problem List Description Status Onset Diabetes Mellitus, Type I Active arthritis Active Neuropathy, bilateral feet Active Gastroesophageal Reflux Active 11/10/2013 Hyperlipidemia, unspecified Active 11/10/2013 Hypertension Active 11/10/2013 Vital Signs Date Time BP-Sys(mm[Hg] BP-[place](mm[Hg]) HR(bpm) RR(rpm) Temp WT HT HC BMI BSA BMI Percentile O2 Sat(%) 01/19/2015 11:27:00 AM 120 mmHg 80 mmHg [...] Comments Housing Lives in a house in [place], [place] lives alone Unemployed disabeled High school [...] BILI 0.50 mg/dLCALCIUM 9.20 mg/dLeGFR >60 mL/min/1.73 [id number] 64.0 mg/dLCHOLESTEROL 102.0 mg/dLHDL 48.0 mg/dLLDL (CALC) [...] Neuropathy, bilateral feet Jan 19 2015 11:30AM Payers Insurance Name Company Name Plan Name Plan Number Policy Number Policy Group Number Start Date Medicare Part B Medicare Of [place] [id number] Wednesday, 2008 [place] Director Ehs Prog - [facility] Director Ehs Pro - [facility] [id number] Saturday, 2013 [place] Medical Assistance Program [place] Medical Assistance Prog [id number] N/A Medicare Part A Medicare Part A [id number] Wednesday, 2008 [facility] Comm [id number] Friday, 2012 History of Encounters Visit Date Visit Type Provider 01/19/2015 Office visit Sri Guevara MD 11/21/2014 Office visit Sri Guevara MD 09/28/2014 Office visit Sri Guevara MD 08/22/2014 Office visit Gretta Paz CHILDREN'S TUTOR NURSERY 05/04/2014 Office visit Anastacia Lee CHILDREN'S TUTOR NURSERY 03/16/2014 Office visit Gretta Paz CHILDREN'S TUTOR NURSERY 01/18/2014 Office visit Sri Guevara MD 12/30/2013 Office visit Anastacia Lee CHILDREN'S TUTOR NURSERY 11/15/2013 Voided Luiz Goldberg MD 11/10/2013 Office visit Anastacia Lee CHILDREN'S TUTOR NURSERY 10/20/2013 Office visit Anastacia Lee CHILDREN'S TUTOR NURSERY 09/09/2013 Office visit Sri Guevara MD 08/10/2013 Office visit Sri Guevara MD 08/01/2013 Office visit Anastacia Lee CHILDREN'S TUTOR NURSERY 07/20/2013 Office visit Anastacia Lee CHILDREN'S TUTOR NURSERY 07/15/2013 Office visit Anastacia Lee CHILDREN'S TUTOR NURSERY 07/09/2010 Office visit Laura Sharp MD
--- OUTSIDE RECORDS SUMMARY | 2018-01-12 18:28 | XMS REPORT ---
Author Author Sri Guevara Organization [facility] Address [address] [facility] [address] [place], [place] [id number] Care Team Providers Care Dispatcher Tow Truck Name Role Phone Sri Guevara PCP Sri [...] per insulin protocol BD Ultra-Fine Izzy Pen [place] 32 gauge x 5/32" miscellaneous needle 2013 [...] AND EVENING MEAL BD Ultra-Fine Izzy Pen [place] 32 gauge x 5/32" miscellaneous needle 2013 USE DIRECTED insulin syringe-needle U-100 0.3 mL 30 miscellaneous syringe 09/20/2014 USE DIRECTED insulin syringe-needle U-100 0.3 mL 30 miscellaneous syringe 10/15/2014 USE DIRECTED BD Ultra-Fine Izzy Pen [place] 32 gauge x 5/32" miscellaneous needle 10/30/2014 [...] UNITS DAILY DIRECTED BD Ultra-Fine Izzy Pen [place] 32 gauge x 5/32" miscellaneous needle 2014 [...] for 90 days BD Ultra-Fine Izzy Pen [place] 32 gauge x " miscellaneous needle 2015 [...] 04/11/2017 use as directed for 30 days Name Start Date Expiration [...] Comments Housing Lives in a house in [facility] lives alone Unemployed disabeled 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 [...] Number Start Date Medicare RHC Medicare RHC [id number] N/A [place] [employer] Prog - RHC [place] [employer] Prog - RHC [id number] Saturday, 2013 Medicare Part A Medicare - Lab/Xray [id number] Wednesday, March 26, 2008 Medicare Part B Medicare Of [place] [id number] Wednesday, March 26, 2008 [place] Medical Assistance Program [place] Medical Assistance Prog [id number] N/A Medicare Part A Medicare Part A [id number] Wednesday, March 26, 2008 [facility] - RHC - [facility] RHC Comm [id number] Friday, October 26, 2012 History of Encounters Visit Date Visit Type Provider 12/11/2016 Office visit Sri Guevara MD 10/07/2016 Office visit Mahin Malik APRN 08/06/2016 Office visit Sri Guevara MD 06/25/2016 Office visit Sri Guevara MD 03/18/2016 Office visit Sri Guevara MD 01/30/2016 Office visit 01/30/2016 Office visit Reza Guadarrama DO 01/01/[address] Dianna Xiong DO 10/05/2015 Office visit Anastacia Lee LYE MACHINE OPERATOR 07/09/2015 Office visit Sri Guevara MD 03/07/2015 Office visit Sri Guevara MD 01/19/2015 Office visit Sri Guevara MD 11/21/2014 Office visit Sri Guevara MD 09/28/2014 Office visit Sri Guevara MD 08/22/2014 Office visit Gretta Paz LYE MACHINE OPERATOR 05/04/2014 Office visit Anastacia Lee LYE MACHINE OPERATOR 03/16/2014 Office visit Gretta Paz LYE MACHINE OPERATOR 01/18/2014 Office visit Sri Guevara MD 12/30/2013 Office visit Anastacia Lee LYE MACHINE OPERATOR 11/15/2013 Voided Luiz Goldberg MD 11/10/2013 Office visit Anastacia Lee LYE MACHINE OPERATOR 10/20/2013 Office visit Anastacia Lee LYE MACHINE OPERATOR 09/09/2013 Office visit Sri Guevara MD 08/10/2013 Office visit Sri Guevara MD 08/01/2013 Office visit Anastacia Lee LYE MACHINE OPERATOR 07/20/2013 Office visit Anastacia Lee LYE MACHINE OPERATOR 07/15/2013 Office visit Anastacia Lee LYE MACHINE OPERATOR 07/09/2010 Office visit Laura Sharp MD
--- OUTSIDE RECORDS SUMMARY | 2018-01-12 18:30 | XMS REPORT ---
Author Author Dianna Xiong [facility] Address [address] [place], [place] [address] Care Team Providers Care Activities Director Scouting Name Role Phone Dianna Xiong PCP Allergies [...] per insulin protocol BD Ultra-Fine Izzy Pen [place] 32 gauge x 5/32" miscellaneous needle 2013 [...] AND EVENING MEAL BD Ultra-Fine Izzy Pen [place] 32 gauge x 5/32" miscellaneous needle 2013 USE DIRECTED insulin syringe-needle U-100 0.3 mL 30 miscellaneous syringe 09/20/2014 USE DIRECTED insulin syringe-needle U-100 0.3 mL 30 miscellaneous syringe 10/15/2014 USE DIRECTED BD Ultra-Fine Izzy Pen [place] 32 gauge x 5/32" miscellaneous needle 10/30/2014 [...] UNITS DAILY DIRECTED BD Ultra-Fine Izzy Pen [place] 32 gauge x 5/32" miscellaneous needle 2014 [...] Diabetes Mellitus 250.01 BD Ultra-Fine Izzy Pen [place] 32 gauge x 5/32" miscellaneous needle 2015 [...] Comments Housing Lives in a house in [place], [place] lives alone 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 Tobacco Use Alcohol Current - status unknown Marijuana 1-2 times per week Did not serve in [employer] Tobacco Current every day smoker History of [...] BILI 0.50 mg/dLCALCIUM 9.20 mg/dLeGFR >60 mL/min/1.73 [id number] 64.0 mg/dLCHOLESTEROL 102.0 mg/dLHDL 48.0 mg/dLLDL (CALC) [...] Date Medicare Part A Medicare Part A [id number] Wednesday, 2008 [facility] Asst Prog - RHC [place] [employer] Designer Prog - RHC [id number] Saturday, 2013 [facility] - RHC - [facility] Comm [id number] Friday, 2012 Medicare Part B Medicare Of [place] [id number] Wednesday, 2008 [place] Medical Assistance Program [place] Medical Assistance Pro[place] [id number] N/A History of Encounters Visit Date Visit Type Provider 01/01/[address] Dianna Xiong DO 10/05/2015 Office visit Anastacia Lee STEAMTABLE ATTENDANT RAILROAD 07/09/2015 Office visit Sri Guevara MD 03/07/2015 Office visit Sri Guevara MD 01/19/2015 Office visit Sri Guevara MD 11/21/2014 Office visit Sri Guevara MD 09/28/2014 Office visit Sri Guevara MD 08/22/2014 Office visit Gertta Paz STEAMTABLE ATTENDANT RAILROAD 05/04/2014 Office visit Anastacia Lee STEAMTABLE ATTENDANT RAILROAD 03/16/2014 Office visit Gretta Paz STEAMTABLE ATTENDANT RAILROAD 01/18/2014 Office visit Sri Guevara MD 12/30/2013 Office visit Anastacia Lee STEAMTABLE ATTENDANT RAILROAD 11/15/2013 Voided Luiz Goldberg MD 11/10/2013 Office visit Anastacia Lee STEAMTABLE ATTENDANT RAILROAD 10/20/2013 Office visit Anastacia Lee STEAMTABLE ATTENDANT RAILROAD 09/09/2013 Office visit Sri Guevara MD 08/10/2013 Office visit Sri Guevara MD 08/01/2013 Office visit Anastacia Lee STEAMTABLE ATTENDANT RAILROAD 07/20/2013 Office visit Anastacia Lee STEAMTABLE ATTENDANT RAILROAD 07/15/2013 Office visit Anastacia Lee STEAMTABLE ATTENDANT RAILROAD 07/09/2010 Office visit Laura Sharp MD
--- OUTSIDE RECORDS SUMMARY | 2018-01-12 18:31 | XMS REPORT ---
Author Author Sri Guevara Organization [facility] Address [address] [facility] [facility] [place], [place] [id number] Care Team Providers Care Italian Tutor Name Role Phone Sri Guevara PCP Allergies [...] per insulin protocol BD Ultra-Fine Izzy Pen [place] 32 gauge x 5/32" miscellaneous needle 2013 [...] AND EVENING MEAL BD Ultra-Fine Izzy Pen [place] 32 gauge x 5/32" miscellaneous needle 2013 USE DIRECTED insulin syringe-needle U-100 0.3 mL 30 miscellaneous syringe 09/20/2014 USE DIRECTED insulin syringe-needle U-100 0.3 mL 30 miscellaneous syringe 10/15/2014 USE DIRECTED BD Ultra-Fine Izzy Pen [place] 32 gauge x 5/32" miscellaneous needle 10/30/2014 [...] UNITS DAILY DIRECTED BD Ultra-Fine Izzy Pen [place] 32 gauge x 5/32" miscellaneous needle 2014 USE DIRECTED doxazosin 4 mg oral tablet 07/09/2015 07/03/2016 TAKE 1 TABLET (4 MG) BY ORAL ROUTE ONCE DAILY FOR 30 DAYS for 90 days pantoprazole 40 mg oral tablet,delayed release (DR/EC) 07/09/2015 12/30/2016 TAKE ONE TABLET BY MOUTH DAILY for 90 days Lantus Solostar 100 unit/mL (3 mL) subcutaneous insulin pen 07/26/2015 INJECT 10 UNITS DAILY, MAY INCREASE BY 2 UNITS DAILY DIRECTED insulin syringe-needle U-100 0.3 mL 30 miscellaneous syringe 07/26/2015 USE DIRECTED insulin syringe-needle U-100 0.3 mL 30 miscellaneous syringe 08/23/2015 USE DIRECTED Name Start Date Expiration Date [...] 30 days alprazolam 0.5 mg oral tablet 08/16/2015 09/15/2015 take 1 tablet by oral route 2 times a day as needed for 30 days Macrobid 100 mg oral [...] Comments Housing Lives in a house in [place], [place] lives alone Unemployed disabeled High school [...] BILI 0.50 mg/dLCALCIUM 9.20 mg/dLeGFR >60 mL/min/1.73 [id number] 64.0 mg/dLCHOLESTEROL 102.0 mg/dLHDL 48.0 mg/dLLDL (CALC) [...] 2015 4:27PM Hypertension Jul 09 2015 3:48PM Payers Insurance Name Company Name Plan Name Plan Number Policy Number Policy Group Number Start Date Medicare Part A Medicare Part A [id number] Wednesday, 2008 [place] [employer] Pro[place] - RHC [place] [employer] [place] - RHC [id number] Saturday, 2013 [facility] [id number] Friday, 2012 Medicare Part B Medicare [place] [id number] Wednesday, 2008 [place] Medical Assistance [facility] Medical Assistance Prog [id number] N/A History of Encounters Visit Date Visit Type Provider 07/09/2015 Office visit Sri Guevara MD 03/07/2015 Office visit Sri Guevara MD 01/19/2015 Office visit Sri Guevara MD 11/21/2014 Office visit Sri Guevara MD 09/28/2014 Office visit Sri Guevara MD 08/22/2014 Office visit Gretta Paz PATIENT SERVICES MANAGER 05/04/2014 Office visit Anastacia Lee PATIENT SERVICES MANAGER 03/16/2014 Office visit Gretta Paz PATIENT SERVICES MANAGER 01/18/2014 Office visit Sri Guevara MD 12/30/2013 Office visit Anastacia Lee PATIENT SERVICES MANAGER 11/15/2013 Voided Luiz Goldberg MD 11/10/2013 Office visit Anastacia Lee PATIENT SERVICES MANAGER 10/20/2013 Office visit Anastacia Lee PATIENT SERVICES MANAGER 09/09/2013 Office visit Sri Guevara MD 08/10/2013 Office visit Sri Guevara MD 08/01/2013 Office visit Anastacia Lee PATIENT SERVICES MANAGER 07/20/2013 Office visit Anastacia Lee PATIENT SERVICES MANAGER 07/15/2013 Office visit Anastacia Lee PATIENT SERVICES MANAGER 07/09/2010 Office visit Laura Sharp MD
--- OUTSIDE RECORDS SUMMARY | 2018-01-12 18:32 | XMS REPORT ---
Author Author Sri Guevara Organization [facility] Address [address] [place], [place] [id number] Care Team Providers Care Concrete Mixing Plant Superintendent Name Role Phone Sri Guevara PCP Sri [...] per insulin protocol BD Ultra-Fine Izzy Pen [place] 32 gauge x 5/32" miscellaneous needle 2013 [...] AND EVENING MEAL BD Ultra-Fine Izzy Pen [place] 32 gauge x 5/32" miscellaneous needle 2013 USE DIRECTED insulin syringe-needle U-100 0.3 mL 30 miscellaneous syringe 09/20/2014 USE DIRECTED insulin syringe-needle U-100 0.3 mL 30 miscellaneous syringe 10/15/2014 USE DIRECTED BD Ultra-Fine Izzy Pen [place] 32 gauge x 5/32" miscellaneous needle 10/30/2014 [...] UNITS DAILY DIRECTED BD Ultra-Fine Izzy Pen [place] 32 gauge x 5/32" miscellaneous needle 2014 [...] Diabetes Mellitus 250.01 BD Ultra-Fine Izzy Pen [place] 32 gauge x " miscellaneous needle 2015 [...] 30 DAYS alprazolam 0.5 mg oral tablet 08/30/2016 09/29/2016 take 1 tablet by oral route 2 times a day as needed for 30 days insulin syringe-needle U-100 0.3 mL 30 miscellaneous syringe 09/10/2016 USE DIRECTED Name Start Date Expiration Date [...] Comments Housing Lives in a house in [facility], [place] lives alone 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 Tobacco Use Alcohol Current - status unknown States she stopped drinking one year ago d/ t diabetes Marijuana 1-2 times per week Did not serve in [employer] Tobacco Current every day smoker History of [...] Start Date Medicare Part A Medicare RHC [id number] N/A [place] 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 - [facility] Asst Pro - [facility] [id number] Saturday, 2013 Medicare Part A Medicare - Lab/Xray [id number] Wednesday, March 26, 2008 Medicare Part B Medicare [place] [id number] Wednesday, March 26, 2008 [place] Medical Assistance Program [place] Medical Assistance Prog [id number] N/A Medicare Part A Medicare Part A [id number] Wednesday, March 26, 2008 [facility] [id number] Friday, October 26, 2012 History of Encounters Visit Date Visit Type Provider 08/06/2016 Office visit Sri Guevara MD 06/25/2016 Office visit Sri Guevara MD 03/18/2016 Office visit Sri Guevara MD 01/30/2016 Office visit 01/30/2016 Office visit Reza Guadarrama DO 01/01/[address] Dianna Xiong DO 10/05/2015 Office visit Anastacia Lee APRN 07/09/2015 Office visit Sri Guevara MD 03/07/2015 Office visit Sri Guevara MD 01/19/2015 Office visit Sri Guevara MD 11/21/2014 Office visit Sri Guevara MD 09/28/2014 Office visit Sri Guevara MD 08/22/2014 Office visit Gretta Paz DEXIGRAPH OPERATOR 05/04/2014 Office visit Anastacia Lee DEXIGRAPH OPERATOR 03/16/2014 Office visit Gretta Paz DEXIGRAPH OPERATOR 01/18/2014 Office visit Sri Guevara MD 12/30/2013 Office visit Anastacia Lee DEXIGRAPH OPERATOR 11/15/2013 Voided Luiz Goldberg MD 11/10/2013 Office visit Anastacia Lee DEXIGRAPH OPERATOR 10/20/2013 Office visit Anastacia Lee DEXIGRAPH OPERATOR 09/09/2013 Office visit Sri Guevara MD 08/10/2013 Office visit Sri Guevara MD 08/01/2013 Office visit Anastacia Lee DEXIGRAPH OPERATOR 07/20/2013 Office visit Anastacia Lee DEXIGRAPH OPERATOR 07/15/2013 Office visit Anastacia Lee DEXIGRAPH OPERATOR 07/09/2010 Office visit Laura Sharp MD
--- OUTSIDE RECORDS SUMMARY | 2018-01-12 18:33 | XMS REPORT ---
Author Author Dianna Xiong [facility] Address [address] [place], [place] [id number] Care Team Providers Care Design Technology Teacher Name Role Phone Dianna Xiong PCP Allergies [...] per insulin protocol BD Ultra-Fine Izzy Pen [place] 32 gauge x 5/32" miscellaneous needle 2013 [...] AND EVENING MEAL BD Ultra-Fine Izzy Pen [place] 32 gauge x 5/32" miscellaneous needle 2013 USE DIRECTED insulin syringe-needle U-100 0.3 mL 30 miscellaneous syringe 09/20/2014 USE DIRECTED insulin syringe-needle U-100 0.3 mL 30 miscellaneous syringe 10/15/2014 USE DIRECTED BD Ultra-Fine Izzy Pen [place] 32 gauge x 5/32" miscellaneous needle 10/30/2014 [...] UNITS DAILY DIRECTED BD Ultra-Fine Izzy Pen [place] 32 gauge x 5/32" miscellaneous needle 2014 [...] Comments Housing Lives in a house in [facility] lives alone Unemployed disabeled 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 [...] BILI 0.50 mg/dLCALCIUM 9.20 mg/dLeGFR >60 mL/min/1.73 [id number] 64.0 mg/dLCHOLESTEROL 102.0 mg/dLHDL 48.0 mg/dLLDL (CALC) [...] Date Medicare Part A Medicare Part A [id number] Wednesday, 2008 [facility] Asst Prog - [facility] Asst Pro - [facility] [id number] Saturday, 2013 [facility] Comm [id number] Friday, 2012 Medicare Part B Medicare [facility] [id number] Wednesday, 2008 [facility] Assistance [facility] [id number] N/A History of Encounters Visit Date Visit Type Provider 01/01/[address] Dianna Xiong DO 10/05/2015 Office visit Anastacia Lee BAKER PIE 07/09/2015 Office visit Sri Guevara MD 03/07/2015 Office visit Sri Guevara MD 01/19/2015 Office visit Sri Guevara MD 11/21/2014 Office visit Sri Guevara MD 09/28/2014 Office visit Sri Guevara MD 08/22/2014 Office visit Gretta Paz BAKER PIE 05/04/2014 Office visit Anastacia Lee BAKER PIE 03/16/2014 Office visit Gretta Paz BAKER PIE 01/18/2014 Office visit Sri Guevara MD 12/30/2013 Office visit Anastacia Lee BAKER PIE 11/15/2013 Voided Luiz Goldberg MD 11/10/2013 Office visit Anastacia Lee BAKER PIE 10/20/2013 Office visit Anastacia Lee BAKER PIE 09/09/2013 Office visit Sri Guevara MD 08/10/2013 Office visit Sri Guevara MD 08/01/2013 Office visit Anastacia Lee BAKER PIE 07/20/2013 Office visit Anastacia Lee BAKER PIE 07/15/2013 Office visit Anastacia Lee BAKER PIE 07/09/2010 Office visit Laura Sharp MD
--- OUTSIDE RECORDS SUMMARY | 2018-01-12 18:33 | XMS REPORT | Continuity of Care Document ---
Author Author [facility] Organization [facility] Address Unknown Phone Unavailable Allergies There is no data. Medications There is no data. Problems There is no data. Procedures There is no data. Results There is no data. Encounters ACCT No. Visit Date/Time Discharge Status Pt. Type Provider Facility Loc./Unit Complaint [id number] 09/08/2017 16:18:50 09/08/2017 23:59:59 CLS Outpatient Sri Guevara [id number] 03/31/2017 12:25:57 03/31/2017 23:59:59 CLS Outpatient Anastacia Lee [id number] 03/02/2017 12:23:44 03/02/2017 23:59:59 CLS Outpatient Anastacia Lee [id number] 02/03/2017 12:22:30 02/03/2017 23:59:59 CLS Outpatient Sri Guevara [id number] 12/11/2016 16:13:55 12/11/2016 23:59:59 CLS Outpatient Sri Guevara [id number] 10/07/2016 16:13:48 10/07/2016 23:59:59 CLS Outpatient Mahin Malik [id number] 08/06/2016 14:26:20 08/06/2016 23:59:59 CLS Outpatient Sri Guevara [id number] 06/25/2016 14:48:32 06/25/2016 23:59:59 CLS Outpatient Sri Guevara [id number] 01/01/2016 12:19:07 01/01/2016 23:59:59 CLS Outpatient Dianna Xiong [id number] 10/05/2015 10:11:43 10/05/2015 23:59:59 CLS Outpatient Anastacia Lee [id number] 07/09/2015 16:20:01 07/09/2015 23:59:59 CLS Outpatient Sri Guevara [id number] 06/04/2015 21:27:27 06/04/2015 23:59:59 CLS Outpatient Sri Guevara [id number] 01/19/2015 11:57:23 01/19/2015 23:59:59 CLS Outpatient Sri Guevara [id number] 11/21/2014 10:59:09 11/21/2014 23:59:59 CLS Outpatient Sri Guevara [id number] 09/28/2014 16:07:15 09/28/2014 23:59:59 CLS Outpatient Sri Guevara [id number] 08/22/2014 11:19:29 08/22/2014 23:59:59 CLS Outpatient Gretta Paz [id number] 05/04/2014 14:50:46 05/04/2014 23:59:59 CLS Outpatient Anastacia Lee [id number] 03/16/2014 14:22:25 03/16/2014 23:59:59 CLS Outpatient JacksonGretta [id number] 01/18/2014 11:28:17 01/18/2014 23:59:59 CLS Outpatient Sri Guevara [id number] 12/30/2013 11:44:58 12/30/2013 23:59:59 CLS Outpatient Anastacia Lee [id number] 11/15/2013 14:39:21 11/15/2013 23:59:59 CLS Outpatient Luiz Goldberg [id number] 11/10/2013 12:28:06 11/10/2013 23:59:59 CLS Outpatient Anastacia Lee [id number] 10/20/2013 12:25:33 10/20/2013 23:59:59 CLS Outpatient Anastacia Lee
[2018-01-12 19:00] VITALS: BP 191/84
[2018-01-12] MEDS ORDERED: morphine INJ 4 MG/ML 1 ML (VIAL/SYRINGE) IVP PRN (19:30)
[2018-01-12] MEDS: NS IV 1000 ML 1,000 ML IV SCH (19:39)
[2018-01-12] MEDS ORDERED: fentaNYL INJECTION 100 MCG/2 ML AMP IVP PRN (19:45)
[2018-01-12] MEDS: ONDANSETRON 4 MG/2 ML (SDV) Z0FRAN IVP PRN ×2 (19:52→23:42)
[2018-01-12] MEDS ORDERED: INSU100I34 SQ (19:58)
[2018-01-12] MEDS ORDERED: BIOT10005 PO (19:58)
[2018-01-12] MEDS ORDERED: ALPR0.5T7 PO (19:58)
[2018-01-12] MEDS ORDERED: MULT-1029 PO (19:58)
[2018-01-12] MEDS ORDERED: PANT40TA2 PO (19:58)
[2018-01-12] MEDS ORDERED: INSU100V16 SQ (19:58)
[2018-01-12] MEDS ORDERED: HYDR-3816 PO (19:58)
[2018-01-12] MEDS ORDERED: DOXA4TAB2 PO (19:58)
[2018-01-12] MEDS ORDERED: CYCL10TA9 PO (20:04)
[2018-01-12] MEDS ORDERED: TIZA4TAB3 PO (20:04)
[2018-01-12] MEDS ORDERED: BACL10TA PO (20:04)
[2018-01-12] MEDS ORDERED: HYDR-3820 PO (20:05)
[2018-01-12] MEDS ORDERED: INFLUENZA TRIvalent 2017-2018 0.5 ML/45 MCG SYR IM ONE (20:15)
[2018-01-12] MEDS ORDERED: doxAzosin 2 MG (CARDURA) TAB ONE (21:21)
[2018-01-12] MEDS ORDERED: doxAzosin 4 MG (CARDURA) TAB ONE (21:24)
[2018-01-12] MEDS: HYDROcodone/APAP 10 MG/325 MG (LORTAB) TAB PO PRN (21:29)
[2018-01-12] MEDS: doxAzosin 4 MG (CARDURA) TAB PO SCH (21:30)
[2018-01-12] MEDS: inSUlin (REGULAR) HUMAN 1 UNIT/0.01 ML (CHARGE PER UNIT) SC SCH (21:32)
[2018-01-12 23:42] VITALS: BP 191/84
[2018-01-12] MEDS: fentaNYL INJECTION 100 MCG/2 ML AMP IVP PRN (23:42)
[2018-01-13] MEDS ORDERED: RT-ALBUTEROL/IPRATROPIUM 3 ML (DUONEB) VIAL INH PRN
[2018-01-13] MEDS: NS IV 1000 ML 1,000 ML IV SCH (00:29)
[2018-01-13 00:48] VITALS: BP 154/72
[2018-01-13] MEDS: HYDROcodone/APAP 10 MG/325 MG (LORTAB) TAB PO PRN ×5 (01:39→19:58)
[2018-01-13] MEDS: ONDANSETRON 4 MG/2 ML (SDV) Z0FRAN IVP PRN ×2 (03:33→08:41)
[2018-01-13] MEDS: fentaNYL INJECTION 100 MCG/2 ML AMP IVP PRN ×2 (03:33→08:40)
[2018-01-13 04:13] VITALS: BP 132/68
[2018-01-13] MEDS: inSUlin (REGULAR) HUMAN 1 UNIT/0.01 ML (CHARGE PER UNIT) SC SCH ×5 (05:58→19:58)
[2018-01-13 06:38] LABS: BASOPHILS % (AUTO) 0 % (0-10); EOSINOPHILS # (AUTO) 0.1 10^3/uL (0.0-0.3); EOSINOPHILS % (AUTO) 1 % (0-10); HEMATOCRIT 38 % (35-52); LYMPHOCYTES # (AUTO) 1.5 X 10^3 (1.0-4.0); LYMPHOCYTES % (AUTO) 22 % (12-44); MEAN CORPUSCULAR HEMOGLOBIN 33 PG (25-34); MEAN CORPUSCULAR HGB CONC 34 G/DL (32-36); MEAN CORPUSCULAR VOLUME 97 FL (80-99); MEAN PLATELET VOLUME 9.6 FL (7.4-10.4); MONOCYTES # (AUTO) 0.6 X 10^3 (0.0-1.0); MONOCYTES % (AUTO) 9 % (0-12); NEUTROPHILS # (AUTO) 4.6 X 10^3 (1.8-7.8); NEUTROPHILS % (AUTO) 68 % (42-75); PLATELET COUNT 164 10^3/uL (130-400); RED BLOOD COUNT 3.92 10^6/uL (4.35-5.85); RED CELL DISTRIBUTION WIDTH 12.7 % (10.0-14.5); WHITE BLOOD COUNT 6.8 10^3/uL (4.3-11.0)
[2018-01-13 07:04] LABS: ALANINE AMINOTRANSFERASE 19 U/L (0-55); ALBUMIN 3.9 GM/DL (3.2-4.5); ALKALINE PHOSPHATASE 68 U/L (40-136); BILIRUBIN,TOTAL 0.7 MG/DL (0.1-1.0); BUN/CREATININE RATIO 10; CARBON DIOXIDE 27 MMOL/L (21-32); CHLORIDE 106 MMOL/L (98-107); CREATININE SERUM 0.67 MG/DL (0.60-1.30); GFR ESTIMATED > 60; GLUCOSE 174 MG/DL (70-105); POTASSIUM 4.1 MMOL/L (3.6-5.0); SODIUM 140 MMOL/L (135-145); TOTAL PROTEIN 6.3 GM/DL (6.4-8.2)
[2018-01-13 08:00] VITALS: BP 139/71
[2018-01-13] MEDS: RT-ALBUTEROL/IPRATROPIUM 3 ML (DUONEB) VIAL INH SCH ×2 (08:33→18:37)
[2018-01-13] MEDS ORDERED: CYCLOBENZAPRINE 10 MG (FLEXERIL) TAB PO PRN (08:45)
[2018-01-13] MEDS ORDERED: BACLOFEN 10 MG (LIORESAL) TAB PO PRN (08:45)
[2018-01-13] MEDS ORDERED: ALPRAZolam 0.5 MG (XANAX) TAB PO PRN (08:45)
[2018-01-13] MEDS ORDERED: NON-FORMULARY MEDICATION 1 EA EA (Biotin 10,000 MCG) PO SCH (09:00)
[2018-01-13] MEDS: inSUlin DETERMIR 1 UNIT/0.01 ML (LEVEMIR) CHARGE PER UNIT SQ SCH (09:45)
[2018-01-13] MEDS: PANTOPRAZOLE 40 MG (PROTONIX) TAB PO SCH (10:38)
[2018-01-13] MEDS ORDERED: HYDR-3820 PO (11:34)
--- NOTE | 2018-01-13 11:37 | Discharge Inst-Simple/Standard ---
Discharge Inst-Standard Discharge Medications New, Converted or Re-Newed RX: RX on Chart Patient Instructions/Follow Up Plan of Care/Instructions/FU: Follow up with your primary care physician in 1 week. If unable to follow up with them, can follow up with Dr. Kilpatrick 1 week. Activity as Tolerated: No (no strenuous activity.) Discharge Diet: Regular Diet Other Inst to Patient Follow up Appt: Make appointment for 1 week. Instructions: No lifting greater than 10 pounds. No strenuous activity. Use incentive spirometer at home as directed 10 x per hour. No Smoking Skin/Wound Care: May remove bandages. Will need duncan out in 1-2 weeks. Symptoms to Report: Appetite Changes, Extremity Discoloration, Numbness/Tingling, Swelling Increased , Bleeding Excessive, Eyesight Changes, Pain Increased, Urine Color Change, Constipation(Persistent), Fever over 101 degree F, Pain/Pressure in chest, Urinating Difficulty, Cough Up/Vomit Blood, Heart Beat Irreg/Pounding, Pain/ Pressure in jaw, Vaginal Bleeding Increase, Cramps in feet or legs, Lightheadedness, Pain/Pressure in shoulder, Diarrhea(Persistent), Memory Changes Suddenly, Questions/Concerns, Weight gain consecutive days, Dizziness/ Fainting, Nausea/Vomiting, Shortness of Breath, Weight gain over 2 pounds If questions or concerns contact your physician Or seek help at emergency department. Planned Outpatient Orders/Ref. Pneu Vac Indicated: Yes HARI KILPATRICK DO Jan 13, 2018 11:37
--- NOTE | 2018-01-13 11:55 | Consultation-Hospitalist ---
HPI History of Present Illness: HPI/Chief Complaint Pt is a 57yoCF with a PMH of IDDMII, HTN, COPD who presented to the ER following a tree limb falling on her from ~10-15ft. She states it first hit her in the head and then fell on her chest. She presented to [facility] but their radiology was down so she came here. She was found to have a manubrium fracture and was admitted for a pain management. She reports she is still having pain though. She denies any other problems prior to this. She denies any issues with her COPD, HTN, or IDDMII. I am consulted for medical management of her chronic illness. She has not been using her IS because she states no one showed her how to do it. She did attempt it while I was at bedside but had minimal inspiratory effort. Source: patient Exam Limitations: no limitations Date Seen 01/13/18 Attending Physician David Kilpatrick DO PCP No,Local Physician Referring Physician Date of Admission Jan 12, 2018 at 18:00 Home Medications & Allergies Home Medications Reviewed patient Home Medication Reconciliation performed by pharmacy medication reconciliations electrical instrument technician and/or nursing. Patients Allergies have been reviewed. Allergies Allergies Coded Allergies codeine (Verified Allergy, Unknown, 01/12/18) Past Mzsntej-Afahuq-Dztonf Hx Past Med/Social Hx: Reviewed Nursing Past Med/Soc Hx Patient Social History Alcohol Use: Denies Use Recreational Drug Use: No Smoking Status: Current Everyday Smoker Type Used: Cigarettes Physical Abuse Screen: No Sexual Abuse: No Recent Foreign Travel: No Contact w/other who traveled: No Recent Hopitalizations: No Recent Infectious Disease Expo: No Immunizations Up To Date Tetanus Booster (TDap): Less than 5yrs Past Medical History Surgeries: Gallbladder, Hysterectomy, Orthopedic Cardiac: Hypertension Hysterectomy Musculoskeletal: Chronic Back Pain Endocrine: Diabetes, Insulin dep Psychosocial: Anxiety Family History Reviewed Nursing Family Hx No Pertinent Family Hx Review of Systems Constitutional: No chills, No fever EENTM: No blurred vision, No double vision, No nose congestion, No throat pain Respiratory: see HPI, No cough, No dyspnea on exertion, No short of breath, other (pain with inspiration) Cardiovascular: No chest pain, No edema, No palpitations Gastrointestinal: No abdominal pain, No constipation, No diarrhea, No nausea, No vomiting Genitourinary: No dysuria, No frequency Musculoskeletal: No joint pain, muscle pain (chest muscles) Skin: No lesions, No rash Psychiatric/Neurological: Denies Headache, Denies Numbness, Denies Tingling Physical Exam Physical Exam Vital Signs Vital Signs - First Documented 01/12/18 15:35 Temp 97.1 Pulse 96 Resp 18 B/P (MAP) 127/100 (109) Pulse Ox 97 O2 Delivery Nasal Cannula O2 Flow Rate 2.00 Capillary Refill : Less Than 3 SecondsLess Than 3 Seconds General Appearance: No Apparent Distress, WD/WN HEENT: PERRL/EOMI, Moist Mucous Membranes Neck: Non Tender, Supple Respiratory: Lungs Clear, No Respiratory Distress Cardiovascular: Regular Rate, Rhythm, No Murmur Gastrointestinal: Normal Bowel Sounds, Non Tender, Soft Extremity: Normal Capillary Refill, No Calf Tenderness Neurologic/Psychiatric: Alert, Oriented x3, Normal Mood/Affect Skin: Normal Color, Warm/Dry Results Results/Procedures Labs Laboratory Tests 01/12/18 15:50 01/13/18 06:18 Patient resulted labs reviewed. Imaging: Reviewed Imaging Films Imaging CT CHEST/ABDOMEN/PELVIS W PROCEDURE: CT chest, abdomen, and pelvis with contrast. TECHNIQUE: Multiple contiguous axial images were obtained through the chest, abdomen, and pelvis after the administration of intravenous contrast. INDICATION: Trauma to chest. FINDINGS: There are no prior studies available for comparison. On the parasagittal images, there is a small essentially nondisplaced fracture along the ventral cortex of the body of the manubrium (image 27 of 58). There may be a small retromanubrial hematoma as well. The sternum itself is intact. There is no other acute bony abnormality appreciated. The thoracic and lumbar vertebrae are intact and there is no sign of an injury to the bony pelvis. The images through the thorax do show that there are emphysematous changes involving both lungs. There is also atelectasis/infiltrate in each lower lobe. There is no sign of pneumothorax. The heart size is within normal limits. Coronary artery calcifications are noted. The aorta is not abnormally dilated. There is no sign of dissection. There is no defect within the pulmonary arteries to indicate a pulmonary embolus either. There is no mediastinal or hilar adenopathy. The thyroid gland, where visualized, is unremarkable. The sections through the abdomen and pelvis fail to show any sign of an acute abnormality. The liver does not appear to be enlarged. The gallbladder is surgically absent. The spleen, pancreas, adrenals, kidneys, aorta, and inferior vena cava are unremarkable for an acute abnormality. There is no pelvic mass or free fluid collection evident. There are numerous diverticula involving the sigmoid and descending colon, but there is no sign of acute diverticulitis. The appendix is not well visualized, but there are no indirect signs of acute appendicitis. The uterus is surgically absent. The urinary bladder is grossly unremarkable. IMPRESSION: 1. There is an essentially nondisplaced fracture of the ventral cortex of the manubrium. No other acute bony abnormality is noted. 2. There are emphysematous changes involving both lungs and there is atelectasis/infiltrate in each lung base. 3. There is no acute abnormality of the abdomen or pelvis. 4. The gallbladder and the uterus are surgically absent. 5. These results were discussed with Dr. Corbin Patel in the ER. Assessment/Plan Assessment and Plan Assess & Plan/Chief Complaint Intractable pain Diagnosis/Problems Diagnosis/Problems (1) Intractable pain Status: Acute Assessment & Plan: On chronic narcotics at baseline Fentanyl prn pain her Dr Kilpatrick primary, wrote for short term rx for pain meds for acute injury (2) Fracture of manubrium Status: Acute Assessment & Plan: Discussed importance of using incentive spirometry She has not been using it I instructed her on the use of it and shes says it hurts too much to do but did attempt 4-5 tries Qualifiers: Encounter type: initial encounter Fracture type: closed Qualified Codes: S22.21XA - Fracture of manubrium, initial encounter for closed fracture (3) COPD (chronic obstructive pulmonary disease) Status: Chronic Assessment & Plan: Continue home meds Qualifiers: COPD type: unspecified COPD Qualified Codes: J44.9 - Chronic obstructive pulmonary disease, unspecified (4) Essential (primary) hypertension Assessment & Plan: Well controlled today Continue home meds (5) Non-insulin dependent type 2 diabetes mellitus Assessment & Plan: BS within goal Will continue home medications and add SSI A Clinical Quality Measures DVT/VTE Risk/Contraindication: Risk Factor Score Per Nursin RFS Level Per Nursing on Admit: 2=Moderate JULIET CELIS MD Jan 13, 2018 11:55
[2018-01-13 12:00] VITALS: BP 169/77
--- NOTE | 2018-01-13 14:25 | Physical Therapy Evaluation ---
PT Evaluation-General Medical Diagnosis Admission Date Jan 12, 2018 at 18:00 Medical Diagnosis: fractured sternun, scalp laceration Onset Date: Jan 13, 2018 Therapy Diagnosis Therapy Diagnosis: gait instability Height/Weight Height (Feet): 5 Height (Inches): 9.00 Weight (Pounds): 160 Weight (Ounces): 0.0 Precautions Precautions/Isolations: Standard Precautions Weight Bear Status Right Lower Extremity: Right Full Weight Bearing Left Lower Extremity: Left Full Weight Bearing Referral Physician: David Kilpatrick Reason for Referral: Evaluation/Treatment Medical History Pertinent Medical History: Back Injury, HTN Social History Home: Single Level Current Living Status: Alone Prior/Core FIM Prior Level of Function Functional Endeavor Measure 0=Not Assessed/NA 4=Minimal Assistance 1=Total Assistance 5=Supervision or Setup 2=Maximal Assistance 6=Modified Endeavor 3=Moderate Assistance 7=Complete Endeavor Bed Mobility: 7 Transfers (B,C,W/C) (FIM): 7 Gait: 7 PT Evaluation-Current Subjective Pt reports she sat down in her granddaughter's tree swing and the branch holding the swing fell on her. It struck her in the head and chest. She was admitted through the ER with a scalp laceration and fx sternum. She also complains of cervical and thoracic pain 5/10. Objective Patient Orientation: Normal For Age Problem Solving: Good Attachments: Oxygen ROM/Strength ROM Lower Extremities WFL Strength Lower Extremities gross 4+/5 throughout Sensory Sensation Right Upper Extremit: Intact Sensation Left Upper Extremity: Intact Sensation Right Lower Extremit: Intact Sensation Left Lower Extremity: Intact Transfers Functional Endeavor Measure 0=Not Assessed/NA 4=Minimal Assistance 1=Total Assistance 5=Supervision or Setup 2=Maximal Assistance 6=Modified Endeavor 3=Moderate Assistance 7=Complete Endeavor Transfers (B, C, W/C) (FIM): 7 Patient demonstrated independent transfers with safety skills. She uses log roll technique to protect the sternum. Gait Mode of Locomotion: Walk Anticipated Mode of Locomotion: Walk Distance (FIM): 3=150 ft Distance: 250 Gait Level of Assist: 7 Gait Assistive Device: None Comments/Gait Description patient walked 250ft without assistive device on room air. O2 sats at 84% on room air after walking. Patient had no signs or symptoms of SOB. She is a chronic smoker so potential chronic low o2 sats. She demonstated good gait stability and safety. She was advised to walk ad alejandrina with her friend or nursing staff. Balance Sitting Static: Normal Sitting Dynamic: Normal Standing Static: Good Standing Dynamic: Good Assessment/Needs Patient was instructed on bracing techniques holding a pillow during transfers, ambulation, and when coughing. She demonstrates slow but stable motility skills. Physical therapy services are not needed at this time and patient is dismissed from therapy services. Rehab Potential: Good PT Web Ui Software Engineer Goals Web Ui Software Engineer Goals PT [facility] Goals Time Frame: Jan 13, 2018 Transfers (B,C,W/C) (FIM): 7 Gait (FIM): 7 Gait distance (FIM): 3=150 ft Distance: 150 Gait Level of Assist: 7 PT Plan Treatment/Plan Treatment Plan: Discontinue PT, goals met Treatment Plan: Safety Patient was educated on safety during transfers and ambulation. Treatment Duration: Jan 13, 2018 (1 visit) Frequency: Estimated Hrs Per Day: Other Patient and/or Family Agrees t: Yes Discharge Recommendations Therapy D/C Recommendations: Home w/ Family Support, Physical Therapy Outpatient Equpiment Recommendations-D/C: None Target Placement home with family and friends assisting Time/GCodes Time In: 1250 Time Out: 1310 Total Billed Treatment Time: 20 Total Billed Treatment visit, gabeal moderate complexity 20 minutes FLACA ARENAS PT Jan 13, 2018 14:25
[2018-01-13 15:50] VITALS: BP 158/74
--- NOTE | 2018-01-13 16:48 | History & Physical-Surgical ---
History of Present Illness History of Present Illness Reason for visit/HPI Chief complaint tree limb fell on her from approximately 10-15 feet. Patient is a 57-year-old female who is brought to the emergency department by EMS. Patient had been rocking in a rocking chair outside when a large tree limb fell from approximately 10-15 feet striking her in the head and she felt as if it had compressed her head down towards her chest. Then the limb landed across her chest which the limb was approximately 6-8 inches in diameter. She was brought here due to [employer] being on diversion for she lives between [facility]. Patient had no loss of consciousness. She did have some nausea yesterday, this is improved. She has pain in the head where she had a laceration which has been repaired with duncan. She still has some complaint of some neck discomfort and chest discomfort. Patient is having a hard time getting her pain under controlled and she understands this is due to her chronic pain that she has from her back. She routinely takes Vicodin 7.5 and muscle relaxants. Pain is moderate to severe. She had CT scan of the head and C-spine which showed no acute intracranial abnormality or calvarial fracture. The C-spine had degenerative changes without fracture or subluxation. She also had a CT scan of the chest abdomen and pelvis which showed a nondisplaced manubrium fracture and emphysematous changes with no acute abnormality of the abdomen and pelvis. GCS 15. Patient has a says probably not using it this morning. She is requiring supplemental oxygenation. Date of Admission Jan 12, 2018 at 18:00 Date Seen by Provider: Jan 13, 2018 Time Seen by Provider: 08:40 I consulted on this patient on 01/13/18 08:40 Attending Physician Hari Kilpatrick DO Admitting Physician No,Local Physician Consult Allergies and Home Medications Allergies Coded Allergies: codeine (Verified Allergy, Unknown, 01/12/18) Home Medications Alprazolam 0.5 Mg Tablet, 0.5 MG PO BID PRN for ANXIETY, (Reported) Baclofen 10 Mg Tablet, 10 MG PO Q6H PRN for MUSCLE SPASMS, (Reported) ALTERNATES WITH CYCLOBENZAPRINE AND TIZANIDINE DEPENDING ON SYMPTOMS AND TIME OF DAY Biotin 10,000 Mcg Capsule, 10,000 MCG PO DAILY, (Reported) Cyclobenzaprine HCl 10 Mg Tablet, 10 MG PO TID PRN for MUSCLE SPASMS, (Reported) ALTERNATES WITH BACLOFEN AND TIZANIDINE DEPENDING ON SYMPTOMS AND TIME OF DAY Doxazosin Mesylate 4 Mg Tablet, 4 MG PO 1900, (Reported) Hydrocodone/Acetaminophen 1 Each Tablet, 1 TAB PO Q4H PRN for PAIN-SEVERE Prescribed by: HARI KILPATRICK on 01/13/18 1134 Insulin Aspart 100 Unit/1 Ml Susp, 1-8 UNITS SQ TID, (Reported) Insulin Glargine,Hum.rec.anlog 100 Unit/1 Ml Insuln.pen, 33 UNITS SQ DAILY, ( Reported) Multivit-Min/FA/Lycopene/Lut 1 Each Tablet, 1 TAB PO DAILY, (Reported) Pantoprazole Sodium 40 Mg Tablet.dr, 40 MG PO DAILY, (Reported) Tizanidine HCl 4 Mg Tablet, 4 MG PO TID PRN for MUSCLE SPASMS, (Reported) ALTERNATES WITH BACLOFEN AND CYCLOBENZAPRINE DEPENDING ON SYMPTOMS AND TIME OF DAY Patient Home Medication List Home Medication List Reviewed: Yes Past Yitpuyh-Qxigzq-Inssvs Hx Patient Social History Alcohol Use: Denies Use Recreational Drug Use: No Smoking Status: Current Everyday Smoker Type Used: Cigarettes Recent Foreign Travel: No Contact w/Someone Who Travel: No Recent Infectious Disease Expo: No Recent Hopitalizations: No Physical Abuse Screen: No Sexual Abuse: No Immunizations Up To Date Tetanus Booster (TDap): Less than 5yrs Surgeries History of Surgeries: Yes Surgeries: Gallbladder, Hysterectomy, Orthopedic Respiratory History of Respiratory Disorde: No Respiratory Disorders: Emphysema Cardiovascular History of Cardiac Disorders: Yes Cardiac Disorders: Hypertension Neurological History of Neurological Disord: No 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 History: Hysterectomy Gastrointestinal History of Gastrointestinal Di: No Musculoskeletal History of Musculoskeletal Dis: Yes Musculoskeletal Disorders: Chronic Back Pain Endocrine History of Endocrine Disorders: Yes Endocrine Disorders: Diabetes, Insulin dep Cancer History of Cancer: No Psychosocial History of Psychiatric Problem: Yes Behavioral Health Disorders: Anxiety Integumentary History of Skin or Integumenta: No Reviewed Nursing Assessment Reviewed/Agree w Nursing PMH: Yes Family Medical History Significant Family History: No Pertinent Family Hx Constitutional: no symptoms reported EENTM: see HPI Respiratory: see HPI Cardiovascular: no symptoms reported Gastrointestinal: no symptoms reported Genitourinary: no symptoms reported : No Musculoskeletal: see HPI Skin: see HPI Psychiatric/Neurological: No Symptoms Reported Physical Exam Vital Signs Vital Signs - First Documented 01/12/18 15:35 Temp 97.1 Pulse 96 Resp 18 B/P (MAP) 127/100 (109) Pulse Ox 97 O2 Delivery Nasal Cannula O2 Flow Rate 2.00 Capillary Refill : Less Than 3 SecondsLess Than 3 Seconds General Appearance: No Apparent Distress HEENT: PERRL/EOMI, Normal ENT Inspection, Other (Scalp laceration repair noted) Neck: Normal Inspection (No significant tenderness on palpation at this time) Respiratory: No Accessory Muscle Use, No Respiratory Distress, Other ( Tenderness at manubrium) Cardiovascular: Regular Rate, Rhythm Gastrointestinal: No Organomegaly, No Pulsatile Mass, Non Tender, Soft Rectal: Deferred Back: Normal Inspection Extremity: Normal Inspection, Normal Range of Motion, Non Tender, No Calf Tenderness Neurologic/Psychiatric: Alert, Oriented x3, No Motor/Sensory Deficits, Normal 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, 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 as Tested Skin: Other (Laceration of scalp) Lymphatic: No Adenopathy Data Review Labs Laboratory Tests 01/13/18 06:18: White Blood Count 6.8, Red Blood Count 3.92L, Hemoglobin 13.0, Hematocrit 38, Mean Corpuscular Volume 97, Mean Corpuscular Hemoglobin 33, Mean Corpuscular Hemoglobin Concent 34, Red Cell Distribution Width 12.7, Platelet Count 164, Mean Platelet Volume 9.6, Neutrophils (%) (Auto) 68, Lymphocytes (%) (Auto) 22, Monocytes (%) (Auto) 9, Eosinophils (%) (Auto) 1, Basophils (%) (Auto) 0, Neutrophils # (Auto) 4.6, Lymphocytes # (Auto) 1.5, Monocytes # (Auto) 0.6, Eosinophils # (Auto) 0.1, Basophils # (Auto) 0.0, Sodium Level 140, Potassium Level 4.1, Chloride Level 106, Carbon Dioxide Level 27, Anion Gap 7, Blood Urea Nitrogen 7, Creatinine 0.67, Estimat Glomerular Filtration Rate > 60, BUN/ Creatinine Ratio 10, Glucose Level 174H, Calcium Level 9.0, Total Bilirubin 0.7 , Aspartate Amino Transf (AST/SGOT) 29, Alanine Aminotransferase (ALT/SGPT) 19, Alkaline Phosphatase 68, Total Protein 6.3L, Albumin 3.9 Assessment/Plan Assessment/Plan Admission Diagonsis Hit by a tree limb, nondisplaced manubrium fracture, head laceration, COPD, hypertension, type II diabetes, chronic pain, hypoxia Admission Status: Observation Assessment/Plan Patient is a cyst 57-year-old female with hit by a tree limb, nondisplaced manubrium fracture, head laceration, COPD, hypertension, type II diabetes, chronic pain. Laceration was repaired by emergency department. Patient with nondisplaced manubrium fracture. Patient was tried to be provided adequate pain control in the emergency department but was difficult to maintain adequate controlled her for she was admitted for pain control. Patient with some slight hypoxia as well requiring O2 at this time. We'll continue to monitor and try to wean oxygen. She was encouraged to use her incentive spirometer which she has not been doing at this time. We'll also get physical therapy. Dr. David consult to for medical management. Patient could possibly go home today if pain controlled on oral narcotics and hypoxia resolved on room air. Restarted her home medications. Patient was discussed we will try to improve her pain control however due to her chronic use of hydrocodone may be difficult to alleviate completely and our goal is to get overall pain reduction versus alleviation. Patient is in agreement with plan. Clinical Quality Measures DVT/VTE Risk/Contraindication: Risk Factor Score Per Nursin RFS Level Per Nursing on Admit: 2=Moderate HARI KILPATRICK DO Jan 13, 2018 16:48
[2018-01-13] MEDS: doxAzosin 4 MG (CARDURA) TAB PO SCH (18:30)
[2018-01-13 19:10] VITALS: BP 139/84
[2018-01-14 00:21] VITALS: BP 125/58
[2018-01-14] MEDS: HYDROcodone/APAP 10 MG/325 MG (LORTAB) TAB PO PRN ×4 (00:29→13:49)
[2018-01-14 04:03] VITALS: BP 124/58
[2018-01-14] MEDS: inSUlin (REGULAR) HUMAN 1 UNIT/0.01 ML (CHARGE PER UNIT) SC SCH ×2 (06:09→09:19)
[2018-01-14] MEDS ORDERED: MULTIVIT W/MINERALS TAB (THERAGRAN M) PO SCH (07:00)
[2018-01-14 08:00] VITALS: BP 116/73
[2018-01-14] MEDS: RT-ALBUTEROL/IPRATROPIUM 3 ML (DUONEB) VIAL INH SCH (08:49)
[2018-01-14] MEDS: PANTOPRAZOLE 40 MG (PROTONIX) TAB PO SCH (09:03)
[2018-01-14] MEDS: inSUlin DETERMIR 1 UNIT/0.01 ML (LEVEMIR) CHARGE PER UNIT SQ SCH (09:19)
--- NOTE | 2018-01-14 13:13 | Progress Note ---
Subjective Date Seen by Provider: Jan 14, 2018 Time Seen by Provider: 09:45 Objective Exam Vital Signs Date Time Temp Pulse Resp B/P (MAP) Pulse Ox O2 Delivery O2 Flow Rate FiO2 01/14/18 11:07 92 1.50 01/14/18 08:49 84 Room Air 01/14/18 08:00 98.5 96 18 116/73 (87) 92 Room Air 01/14/18 04:03 97.9 74 17 124/58 (80) 94 Nasal Cannula 2.00 01/14/18 00:21 98.1 84 17 125/58 (80) 94 Nasal Cannula 2.00 01/13/18 21:00 Nasal Cannula 1.50 01/13/18 19:10 99.9 84 18 139/84 (102) 93 Nasal Cannula 2.00 01/13/18 18:37 Nasal Cannula 1.50 01/13/18 15:50 99.5 77 20 158/74 (102) 92 Nasal Cannula 2.00 I & O 01/14/18 07:00 Intake Total 3840 ml Balance 3840 ml Capillary Refill : Less Than 3 SecondsLess Than 3 Seconds General Appearance: No Apparent Distress HEENT: PERRL/EOMI, Normal ENT Inspection, Other Neck: Normal Inspection Respiratory: No Accessory Muscle Use, No Respiratory Distress, Other Cardiovascular: Regular Rate, Rhythm Extremity: Normal Inspection, Normal Range of Motion, Non Tender, No Calf Tenderness Neurologic/Psychiatric: Alert, Oriented x3, No Motor/Sensory Deficits, Normal 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 Laceration was repaired by emergency department. Patient with nondisplaced manubrium fracture. Patient was tried to be provided adequate pain control in the emergency department but was difficult to maintain adequate controlled her for she was admitted for pain control. Patient with some slight hypoxia as well requiring O2 at this time. We'll continue to monitor and try to wean oxygen. She was encouraged to use her incentive spirometer which she has not been doing at this time. We'll also get physical therapy. Dr. David consult to for medical management. Patient could possibly go home today if pain controlled on oral narcotics and hypoxia resolved on room air. Restarted her home medications. Patient was discussed we will try to improve her pain control however due to her chronic use of hydrocodone may be difficult to alleviate completely and our goal is to get overall pain reduction versus alleviation. Patient is in agreement with plan. Clinical Quality Measures DVT/VTE Risk/Contraindication: Risk Factor Score Per Nursin RFS Level Per Nursing on Admit: 2=Moderate HARI AGUIRRE DO Jan 14, 2018 13:12
[2018-01-14 14:30] VITALS: BP 118/72
--- NOTE | 2018-01-14 15:34 | Progress Note ---
Subjective Date Seen by Provider: Jan 14, 2018 Time Seen by Provider: 09:23 Subjective/Events-last exam Patient pain under control. Poorly using incentive spirometer. Requiring o2, but not feeling short of breath. No new complaints. Denies n/v fever sweats chills. Objective Exam Vital Signs Date Time Temp Pulse Resp B/P (MAP) Pulse Ox O2 Delivery O2 Flow Rate FiO2 01/14/18 14:30 89 18 118/72 94 Nasal Cannula 2.00 01/14/18 11:07 92 1.50 01/14/18 09:00 Nasal Cannula 2.00 01/14/18 08:49 84 Room Air 01/14/18 08:00 98.5 96 18 116/73 (87) 92 Room Air 01/14/18 04:03 97.9 74 17 124/58 (80) 94 Nasal Cannula 2.00 01/14/18 00:21 98.1 84 17 125/58 (80) 94 Nasal Cannula 2.00 01/13/18 21:00 Nasal Cannula 1.50 01/13/18 19:10 99.9 84 18 139/84 (102) 93 Nasal Cannula 2.00 01/13/18 18:37 Nasal Cannula 1.50 01/13/18 15:50 99.5 77 20 158/74 (102) 92 Nasal Cannula 2.00 I & O 01/14/18 07:00 Intake Total 3840 ml Balance 3840 ml Capillary Refill : Less Than 3 SecondsLess Than 3 Seconds General Appearance: No Apparent Distress HEENT: PERRL/EOMI, Normal ENT Inspection (duncan in scalp) Neck: Normal Inspection Respiratory: No Accessory Muscle Use, No Respiratory Distress, Other Cardiovascular: Regular Rate, Rhythm Gastrointestinal: non tender, soft, no organomegaly Extremity: Normal Inspection, Normal Range of Motion, Non Tender, No Calf Tenderness Neurologic/Psychiatric: Alert, Oriented x3, No Motor/Sensory Deficits, Normal 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 Patient with nondisplaced manubrium fracture. Patient on oral pain medications and tolerating. She was instructed to work at incentive spirometer. Patient will need home O2 set up by Dr. David. Patient will need follow up 1 week either with her PCP or myself. Patient agrees with dc home today and wants to go home. Final Diagnosis hit by a tree limb, nondisplaced manubrium fracture, head laceration, COPD, hypertension, type II diabetes, chronic pain, hypoxia, intractable pain Clinical Quality Measures DVT/VTE Risk/Contraindication: Risk Factor Score Per Nursin RFS Level Per Nursing on Admit: 2=Moderate HARI AGUIRRE DO Jan 14, 2018 15:34
== END 2018-01-14 11:16 | disposition home or self-care (01) ==
LOC: ER 15:34 → 4TH 18:00 → UNDOADMOB 18:00 → 4TH 18:48
PROVIDERS: ADMIT Surgery; ATTEND Surgery
DX: S22.21XA Fracture of manubrium, initial encounter for closed fracture (principal); S01.01XA Laceration without foreign body of scalp, initial encounter; W22.8XXA Striking against or struck by other objects, initial encounter; J43.9 Emphysema, unspecified; I10 Essential (primary) hypertension; E11.9 Type 2 diabetes mellitus without complications; G89.29 Other chronic pain; F41.9 Anxiety disorder, unspecified; Z79.899 Other long term (current) drug therapy; Z79.4 Long term (current) use of insulin; Z88.5 Allergy status to narcotic agent; F17.210 Nicotine dependence, cigarettes, uncomplicated; Z23 Encounter for immunization
CPT/HCPCS: 12002; 36415; 70450; 71045; 71260; 72125; 74177; 80048; 80053; 80076; 80320; 84703; 85025; 85027; 90471; 90715; 93041; 94640; 94664; 94668; 94760; 94761; 96361; 96374; G0378

== ENCOUNTER → 2020-10-23 | Outpatient (CLI) | payer MEDICARE, MEDICAID ==
[~2020-10-23] MED LIST: ACHYD1T PO; ALPR0.5T7 PO; BACL10TA PO; BIOT10005 PO; CYCL10TA9 PO; DOXA4TAB2 PO; HYDR-34 PO; INSU100I34 SQ; INSU100V16 SQ; MULT-1029 PO; PANT40TA2 PO; TIZA4TAB4 PO
--- NOTE | 2020-10-23 15:26 | Diagnostic Imaging Report ---
TIME OF EXAM: 10/23/2020 1:08 PM REASON FOR EXAM: Lung cancer screening. [id number] smoking history. COMPARISON: 01/12/2018. TECHNIQUE: Low Dose CT helical images obtained through the chest. Sagittal and coronal reformats were obtained and reviewed. Dose reduction techniques were utilized. CTDI vol: 2.22 mGy FINDINGS: Nodules: -- A) 5 mm, indeterminate noncalcified solid left lower lobe nodule (image 189, series 2) -- B) 4] mm, indeterminate noncalcified solid right upper lobe nodule (image 73 series 2) Lungs: Lung volumes are normal. Centrilobular emphysema is present, greatest in the apices. No evidence of pulmonary fibrosis. There is no appreciable bronchiectasis. Dependent atelectasis is seen in the lung bases bilaterally. No pulmonary mass or consolidation is present. No central endoluminal airway lesion is seen. Bronchial wall thickening is seen throughout the lungs. Heart and Mediastinum: Heart size is within normal limits. Small amount of coronary calcifications are present. Aortic atherosclerosis is present without aneurysm. No pericardial effusion is present. No axillary, supraclavicular, mediastinal, internal mammary, or hilar adenopathy is present by CT size criteria. Normal size and attenuation of the visualized thyroid gland. Pleura: Normal pleural spaces. No effusion or pneumothorax. No pleural nodularity or mass. Abdomen: Included views of the upper abdomen demonstrate no acute abnormality. The gallbladder is surgically absent. Bones and soft tissues: A prominent Schmorl's node is seen in the superior endplate of T10. No acute fractures are visualized in the osseous structures of the chest. IMPRESSION: 1. Subcentimeter pulmonary nodules involving the right upper lobe and left lung base. These are favored to represent benign nodules. Recommend follow-up low-dose chest CT in 6 months to ensure stability. 2. No thoracic lymphadenopathy. 3. Centrilobular emphysema. 4. Bronchial wall thickening, which can be seen with bronchitis/bronchiolitis. No focal consolidations. Result code: Category 3: Probably Benign Follow up: 6 month LDCT Dictated by: Dictated on workstation # [id number]
== END ==
LOC: RAD 12:25
PROVIDERS: ATTEND Nurse Practitioner Family
DX: Z12.2 Encounter for screening for malignant neoplasm of respiratory organs (principal); J43.2 Centrilobular emphysema; R91.8 Other nonspecific abnormal finding of lung field

== ENCOUNTER → 2021-07-09 | Outpatient (CLI) | payer MEDICARE, MEDICAID ==
--- NOTE | 2021-07-09 12:18 | Diagnostic Imaging Report ---
EXAMINATION: CT chest without contrast (lung screening). TECHNIQUE: Multiple contiguous axial images were obtained through the chest without the use of intravenous contrast according to lung cancer screening protocol. All CT scans use one or more of the following dose optimizing techniques: automated exposure control, MA and/or KvP adjustment based on patient size and exam type or iterative reconstruction. HISTORY: 53 pack year history of smoking. COMPARISON: 10/23/2020 FINDINGS: There is no edema or pneumonia. No pleural effusion. No pneumothorax. Left lower lobe 5 mm nodule is unchanged. The right upper lobe nodule is also unchanged measuring 4 mm. Lungs are moderately emphysematous. There is no axillary or supraclavicular lymphadenopathy. There is no mediastinal lymphadenopathy. Heart size is normal. There are moderate coronary artery calcifications. No pericardial effusion. Aorta is normal in caliber. Limited views of the upper abdomen show changes of cholecystectomy. There are no suspicious osseous lesions. IMPRESSION: 1. Stable pulmonary nodules which can now be considered benign and the patient return to annual screening. LUNG-RADS CATEGORY: 2 MODIFIER: None. Dictated by: Dictated on workstation # [id number]
== END ==
LOC: RAD 11:15
PROVIDERS: ATTEND Nurse Practitioner Family
DX: Z12.2 Encounter for screening for malignant neoplasm of respiratory organs (principal); R91.8 Other nonspecific abnormal finding of lung field; Z87.891 Personal history of nicotine dependence
CPT/HCPCS: 71271